=== PATIENT | male | born 1945 | race Caucasian/White ===

== ENCOUNTER 2020-02-15 11:45 | Inpatient (IN) | payer MEDICARE, OTHER, SELFPAY ==
[2020-02-15] VITALS (10 sets, daily range): BP systolic 109–140; BP diastolic 52–97; PULSE 77–150; RESP 20–30; TEMP 36.7–39.6; O2SAT 91–99; BMI 34.0
--- NOTE | ~2020-02-15 | XR_ITS ---
EXAMINATION: XR chest 1V portable EXAM DATE: 02/15/2020 12:49 INDICATION: COVID-19. TECHNIQUE: Portable AP frontal chest x-ray was obtained. There is no prior study for comparison. FINDINGS: Small regions of patchy ill-defined acute airspace disease, appearance and distribution con sistent with acute lung injury from SARS-CoV-2. No confluent consolidation, pneumothorax or pleural e ffusion suspected. Cardiomediastinal silhouette is normal. There are no osseous abnormalities identif ied. IMPRESSION: Ill-defined opacities bilaterally consistent with COVID-19. Reviewed, dictated and finalized at location A. ENSATION ANALYST
--- NOTE | 2020-02-15 12:11 | ECG_ITS ---
Measurements Intervals [place] Rate: 128 P: [place]: 0 QRS: 9 QRSD: 81 T: 19 QT: 276 QTc: 403 Interpretive Statements ATRIAL FIBRILLATION WITH RAPID VENTRICULAR RESPONSE BORDERLINE T WAVE ABNORMALITY- INFERIOR LEADS BASELINE ARTIFACT- I, III, AVR, AVL, AVF, V1, V4-V6 ABNORMAL ECG Electronically Signed On 02-15-2020 17:09:19 MULTI OPERATION FORMING MACHINE SETTER by Amaury Osman D.O.
[2020-02-15 12:43] LABS: Alveolar/Arterial O2 Gradient 83.4 mmHg; Base Excess ABG 0.9 mEq/l (+/-2.0); Fractional Inspired Oxygen 28 %; HCO3 ABG 22.1 mEq/l (22.0-26.0); Oxygen Content ABG 23.7 %vol (16.0-22.0); Oxygen Saturation ABG 97.3 % (95.0-100.0); Oxyhemoglobin 96.3 % THb (90.0-100.0); PCO2 ABG 27.7 mmHg (35.0-45.0); PO2 ABG 83.6 mmHg (80.0-100.0); PO2 FiO2 Ratio Arterial Blood 2.99 %; Total Hemoglobin 17.5 g/dL (12.0-18.0)
[2020-02-15 12:45] LABS: Device NASAL CANNULA; Site Drawn LEFT BRACHIAL
[2020-02-15] MEDS: SODIUM CHLORIDE 0.9% IV 1,000 ML 999 ML IV CONT (12:45)
[2020-02-15 13:00] LABS: Basophils Percent Auto 0.3 % (0.2-1.2); Hematocrit 47.8 % (42.0-52.0); Immature Granulocyte Absolute 0.04 K/mm3 (0.00-0.031); Immature Granulocyte Percent A 0.4 % (0-0.5); Lymphocytes Absolute Auto 0.48 K/mm3 (0.9-3.2); Lymphocytes Percent Auto 4.9 % (18.3-44.2); Mean Corpuscular HGB Conc 35.6 g/dl (32-36); Mean Corpuscular Hemoglobin 33.6 pg (26-34); Mean Corpuscular Volume 94.5 fl (80-100); Mean Platelet Volume 10.8 fl (7.4-10.4); Monocytes Absolute Auto 0.7 K/mm3 (0.1-0.6); Monocytes Percent Auto 7.5 % (2.6-8.5); Neutrophils Absolute Auto 8.5 K/mm3 (1.3-6.7); Neutrophils Percent Auto 86.9 % (45.5-73.1); Platelet Count Result 223 k/mm3 (150-375); Red Blood Count 5.06 M/mm3 (4.6-6.20); Red Cell Distribution Width 11.8 % (11.5-14.5); White Blood Count 9.8 K/mm3 (4.5-10.0)
--- NOTE | 2020-02-15 13:05 | ED.WEAKNESS ---
HPI - Weakness General Chief complaint: Weakness Stated complaint: SOB Time Seen by Provider: 02/15/20 12:09 Source: patient Mode of arrival: ambulatory Limitations: no limitations History of Present Illness HPI Narrative: 74 years old white female presents to the ED with general weakness for the last few days. Patient have a positive Covid test. 5 days ago. Patient does not take oxygen at home. Currently patient complaining of dyspnea mainly on exertion, general body aches and fever. Related Data Home Medications Medication Instructions Recorded Confirmed atorvastatin 10 mg PO DAILY 02/15/20 lisinopril-hydrochlorothiazide 1 tablet PO DAILY 02/15/20 Allergies Allergy/AdvReac Type Severity Reaction Status Date / Time No Known Allergies Allergy Verified 02/15/20 12:01 Review of Systems Review of Systems: Narrative: CONSTITUTIONAL: Denies fever, chills, or sweats. EYES: Denies visual changes, redness, or discharge. ENT: Denies rhinorrhea, congestion, sore throat, or otalgia. CARDIOVASCULAR: Denies chest pain, palpitations, or edema. RESPIRATORY: Dyspnea and shortness of breath. GASTROINTESTINAL: Denies abdominal pain, nausea, vomiting, or diarrhea. GENITOURINARY: Denies dysuria or hematuria. SKIN: Denies rash or itching. MUSCULOSKELETAL: Denies back pain, joint pain, or myalgia. NEUROLOGIC: Denies headache, numbness, or weakness. PSYCHIATRIC: Denies anxiety or depression. [facility] Past Medical History Medical History (Updated 02/15/20 @ 16:12 by Tonia Cohen MD) History of colon cancer Prostate cancer Family History Family History Sibling Family history of malignant neoplasm Father Family history of coronary artery disease Mother Family history of coronary artery disease Social History Social History Smoking status: Never smoker Alcohol intake: never Substance use: never Exam Narrative: Exam Narrative: General appearance: Well-developed, well-nourished, looks ill Skin: Normal color Head: Normocephalic, nontraumatic Eyes: Clear conjunctiva ENT: Oropharynx normal, ears normal, nose normal Neck: Supple, nontender Chest and respiratory: Airway patent, no respiratory distress, no accessory muscle use Heart: Tachycardia, irregular irregularity Abdomen: Soft, nontender, no organomegaly, quiet bowel sounds Neurologic: Alert and oriented ?3, ORTHOPEDIC TECHNICIAN is normal as tested, no gross motor deficit Course Course Emergency Course: Stable Vital Signs Vital signs: Vital Signs Temperature 39.6 C H 02/15/20 11:57 Pulse Rate 116 H 02/15/20 11:57 Respiratory Rate 02/15/20 11:57 Blood Pressure 140/89 02/15/20 11:57 Pulse Oximetry 93 02/15/20 11:57 Temperature 39.6 C H 02/15/20 11:57 Pulse Rate 116 H 02/15/20 11:57 Respiratory Rate 02/15/20 11:57 Blood Pressure 140/89 02/15/20 11:57 Pulse Oximetry 93 02/15/20 11:57 MDM - Weakness MDM Narrative Medical decision making narrative: Patient presents with Covid infection symptoms. EKG showed A. fib with RVR, which is new. Hypoxia on room air. Chest x-ray showing opacity bilaterally consistent with Covid infection D-dimer is elevated which high likely secondary to COVID-19 infection. CTA pulmonary ordered to rule out the possibility of PE. Lovenox 1 mg/kg subcu given Differential Diagnosis Differential diagnosis: Likely dehydration and other (Covid pneumonia, electrolyte imbalance, pulmonary embolism, A. fib with RVR) Lab Data Result diagrams: 02/15/20 12:38 Labs: Lab Results 02/15/20 02/15/20 Range/Units 12:38
[2020-02-15 13:10] LABS: Partial Thromboplastin Time 28.5 SECONDS (22.3-36.8)
[2020-02-15 13:12] LABS: D Dimer 1.44 ug/mL (<0.48)
[2020-02-15] MEDS: dilTIAZem HCl INJ 25 MG/5 ML VIAL 10 MG IV PUSH (14:14)
[2020-02-15 15:07] LABS: Estimated CRCL calculation 68 ml/min; Estimated Glomerular Filt Rate > 60
[2020-02-15] MEDS: ENOXAPARIN 100 MG/ML SYRINGE SUB-Q (17:43)
--- NOTE | 2020-02-15 18:11 | PM.IMHP ---
H&P: HPI History of Present Illness Date/Time: 02/15/20 18:11 Chief complaint: A Fib W/RVR/COVID/Pneumonia Narrative: Shawn Barreto is a 74 year old male Who has a history of hypertension and hyperlipidemia. 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 The patient stated that he was tested and found to be COVID positive this past Thursday. He was doing well until the middle night where he became short of breath. The patient stated that he felt like he was going to pass out last night. He had generalized body aches fever and dyspnea upon exertion. The patient was found to be in AFib with RVR. The patient has no prior history of atrial fibrillation. Patient was started on a Cardizem drip and given subcu Lovenox. The patient was placed on oxygen at 2 L per nasal cannula he is only 94% with oxygen on at 2 L. He was given subcu Lovenox IV Cardizem IV fluids and IV Tylenol in the emergency room. I personally reviewed his chest x-ray did looks like COVID pneumonia. Chest x-ray was read as ill-defined opacities bilaterally consistent with COVID-19. His heart rates in the 130s. Temperature 39.6 Degree C. patient is being admitted to inpatient for hypoxia new onset of AFib with RVR and COVID pneumonia. He is admitted and patient on the date of service of 02/15/2020 Review of Systems Review of Systems: All systems reviewed & are unremarkable except as noted in HPI and below Constitutional: Constitutional: Reports as per HPI and Reports no additional constitutional complaints Eyes: Eyes: Reports as per HPI and Reports no additional eye complaints ENT: Reports system reviewed and no additional complaints, except as documented and Reports Normal hearing present Cardiovascular: Cardiovascular: Reports no additional cardiovascular complaints Respiratory: Respiratory: Reports no additional respiratory complaints and Reports no additional respiratory complaints Gastrointestinal: Gastrointestinal: Reports as per HPI and Reports no additional gastrointestinal complaints Musculoskeletal: Musculoskeletal: Reports no additional musculoskeletal complaints Integumentary/Breasts: Skin/Breast: Reports system reviewed and no additional complaints, except as docu and Reports as per HPI Neurologic: Reports system reviewed and no additional complaints, except as documented, Reports as per HPI and Reports Normal hearing present Psychiatric: Psychiatric: Reports no additional psychiatric complaints and Reports as per HPI Endocrine: Endocrine: Reports no additional endocrine complaints Hematologic/Lymphatic: Hematologic/Lymphatic: Reports no additional hematologic/lymphatic complaints Allergic/Immunologic: Allergic/Immunologic: Reports no additional allergic/immunologic complaints [facility] Past Medical History Medical History (Updated 02/15/20 @ 18:34 by Leigh Bojorquez NP) History of colon cancer Hyperlipidemia Hypertension Prostate cancer Surgical History Surgical History (Updated 02/15/20 @ 18:17 by Leigh Bojorquez NP) H/O colectomy H/O local excision of skin lesion Family History Family History Sibling Family history of malignant neoplasm Father Family history of coronary artery disease Mother Family history of coronary artery disease Social History Social History (Updated 02/15/20 @ 18:20 by Leigh Bojorquez NP) Social History: the patient is and lives with his . his son is the durable power privacy attorney for healthcare. Patient is a full code. He has 3 sons and 2 step children. Patient denies any alcohol use no marijuana or illicit drugs. He owns an auto body shop. Smoking status: Never smoker Alcohol intake: never Substance use: never Living arrangements: with family Occupation/Education: occupation Meds Home Medications and Allergies Home Medications M
--- NOTE | 2020-02-15 18:39 | ADMGEN ---
This patient, Shawn Barreto, was admitted to IMU Room 213-01 AT 1834 ON 02/15/2020. Patient/family oriented to hospital policies and general routines including ID bracelet, bed and alarms, visiting hours, pain management, procedures, bathroom and other care routines, personal items, smoking policy, room service/diet, and visiting hours. Information on how to activate the Rapid Response Team has been discussed. Patient/Family are encouraged to report perceived risks to care and to ask questions if they do not understand what they are told or what they should do.
[2020-02-15] MEDS: DEXAMETHASONE SOD PHOS INJ 4 MG/ML VIAL 6 MG IV PUSH (19:05)
[2020-02-15 19:06] LABS: Alanine Aminotransferase 25 U/L (4-50); Estimated CRCL calculation 76 ml/min; Estimated Glomerular Filt Rate > 60
[2020-02-15] MEDS: REMDESIVIR 200 MG/NS 250 ML 200 MG/250 ML BAG 250 MG IVPB (22:11)
[2020-02-16] VITALS (11 sets, daily range): BP systolic 118–151; BP diastolic 61–83; PULSE 74–118; RESP 18–20; TEMP 36.5–38.8; O2SAT 91–99
--- NOTE | 2020-02-16 | ECHO_ITS ---
Patient Info Name: Shawn Barreto Age: 74 years : 1945 Gender: Male Ht: 66 in Wt: 209 lbs BSA: 2.14 m2 HR: 102 bpm BP: 118 / 61 mmHg Heart Rhythm: Tachycardia, Sinus Rhythm Technical Quality: Good Exam Date: 02/16/2020 10:07 AM Exam Location: [facility] Patient Status: Inpatient Admit Date: 02/15/2020 Staff Ordering Physician: Leigh Bojorquez NP Manager Of It: Ismael Colón, SUSHILA, RT Attending Provider: Jesus Richards DO Referring Physician: Reno SHEPPARD; Exam Type: CA echo doppler color flow Study Info Indications I48.1 - Persistent atrial fibrillation Complete two-dimensional, color flow and Doppler transthoracic echocardiogram is performed. Summary 1. Technically difficult study with limited views. 2. Left ventricular systolic function is normal, estimated at 55%. 3. There is mildly increased left ventricular wall thickness. 4. The left ventricular diastolic function is grade I diastolic dysfunction. 5. There is trace mitral valve regurgitation. 6. There is no aortic valve stenosis. 7. Unable to estimate PA systolic pressure due to poor spectral resolution of tricuspid regurgitant jet velocity. 8. There is small pericardial effusion with fibrinous material within the pericardial space. 9. Normal inferior vena cava with >50% collapse upon inspiration consistent with normal right atrial pressure, 5 mmHg. Left Ventricle Left ventricular chamber dimension is normal. Left ventricular systolic function is normal, estimated at 55%. There is mildly increased left ventricular wall thickness. The left ventricular diastolic function is grade I diastolic dysfunction. Technically difficult study with limited views. Right Ventricle Right ventricular chamber dimension is normal. Right ventricular systolic function is normal. Left Atria Left atrial chamber dimension is normal. Right Atria Right atrial chamber dimension is normal. Aortic Valve The aortic valve is probable trileaflet. There is no aortic valve stenosis. There is no aortic valve regurgitation. Pulmonic Valve The pulmonic valve is not well visualized. Mitral Valve The mitral valve has normal leaflets. There is trace mitral valve regurgitation. The mitral valve annulus is mildly calcified. Tricuspid Valve The tricuspid valve leaflets are not well visualized. Unable to estimate PA systolic pressure due to poor spectral resolution of tricuspid regurgitant jet velocity. Pericardium/Pleural The pericardium appears normal. There is small pericardial effusion with fibrinous material within the pericardial space. Inferior Vena Cava Normal inferior vena cava with >50% collapse upon inspiration consistent with normal right atrial pressure, 5 mmHg. Aorta The aortic root size at the sinus of Valsalva is normal. Left Ventricular Outflow Tract Name Value Normal LVOT 2D LVOT Diameter 2.1 cm LVOT Doppler LVOT Peak Gradient 5 mmHg LVOT Mean Gradient 2 mmHg LVOT VTI 15 cm LVOT VTI/AV VTI Ratio
--- NOTE | 2020-02-16 03:11 | ECG_ITS ---
Measurements Intervals [place] Rate: 93 P: 113 DC: 103 QRS: -5 QRSD: 90 T: 19 QT: 319 QTc: 397 Interpretive Statements SINUS RHYTHM WITH SHORT DC INTERVAL ATRIAL PREMATURE COMPLEX DELAYED PRECORDIAL R/S TRANSITION BASELINE ARTIFACT- I, II, III, AVR, AVL, AVF, V1-V3 BORDERLINE ECG Electronically Signed On 02-17-2020 8:56:18 REGULATORY COMPLIANCE SPECIALIST by Amaury Osman D.O.
[2020-02-16] MEDS: ENOXAPARIN 100 MG/ML SYRINGE 95 MG SUB-Q ×2 (05:03→17:20)
[2020-02-16 05:35] LABS: Basophils Percent Auto 0.1 % (0.2-1.2); Hematocrit 43.9 % (42.0-52.0); Hemoglobin 15.2 g/dL (14.0-18.0); Immature Granulocyte Absolute 0.02 K/mm3 (0.00-0.031); Immature Granulocyte Percent A 0.3 % (0-0.5); Lymphocytes Absolute Auto 0.48 K/mm3 (0.9-3.2); Lymphocytes Percent Auto 6.4 % (18.3-44.2); Mean Corpuscular HGB Conc 34.6 g/dl (32-36); Mean Corpuscular Volume 95.2 fl (80-100); Monocytes Absolute Auto 0.4 K/mm3 (0.1-0.6); Monocytes Percent Auto 5.3 % (2.6-8.5); Neutrophils Absolute Auto 6.6 K/mm3 (1.3-6.7); Neutrophils Percent Auto 87.9 % (45.5-73.1); Platelet Count Result 210 k/mm3 (150-375); Red Blood Count 4.61 M/mm3 (4.6-6.20); Red Cell Distribution Width 11.8 % (11.5-14.5); White Blood Count 7.5 K/mm3 (4.5-10.0)
[2020-02-16 05:50] LABS: Alanine Aminotransferase 27 U/L (4-50); Albumin Level 3.4 g/dL (3.5-5.1); Alkaline Phosphatase 45 U/L (38-126); Anion Gap 7 mmol/L (8-16); Aspartate Amino Transferase 32 U/L (17-59); Bilirubin,Total 0.9 mg/dL (0.2-1.3); Blood Urea Nitrogen 24 mg/dL (9-20); Calcium 8.5 mg/dL (8.4-10.2); Carbon Dioxide 31 mmol/L (22-30); Chloride 96 mmol/L (98-107); Estimated CRCL calculation 76 ml/min; Estimated Glomerular Filt Rate > 60; Glucose 167 mg/dL (75-110); Magnesium 2.3 mg/dL (1.6-2.3); Potassium 3.7 mmol/L (3.4-5.0); Sodium 134 mmol/L (137-145)
[2020-02-16 06:03] LABS: CRP 14.3 mg/dL (<1.0)
[2020-02-16 06:44] LABS: Thyroid Stimulating Hormone Reflex 0.426 uIU/mL (0.465-4.68)
[2020-02-16 09:03] LABS: Free T4 Free Thyroxine Reflex 1.53 ng/dL (0.78-2.19)
--- NOTE | 2020-02-16 09:17 | PM.IMPN ---
Progress Note: A&P Assessment and Plan (1) Hyperlipidemia: Qualifiers: Hyperlipidemia type: mixed hyperlipidemia Qualified Code(s): E78.2 - Mixed hyperlipidemia Code(s): E78.5 - Hyperlipidemia, unspecified Status: Chronic Assessment and Plan: restart home atorvastatin (2) Hypertension: Qualifiers: Hypertension type: essential hypertension Qualified Code(s): I10 - Essential (primary) hypertension Code(s): I10 - Essential (primary) hypertension Status: Chronic Assessment and Plan: restarting home meds lisinopril-HCTZ (3) Pneumonia due to 2019 novel coronavirus: Code(s): U07.1 - COVID-19; J12.89 - Other viral pneumonia Status: Acute Assessment and Plan: -COVID 19 diagnosed 02/11 -supplemental O2 to keep O2>90%, currently on 3L -Remdesivir/dexamethasone 02/14- -MDI: levalbuterol prn -supplements: zinc, vitamin c, vitamin d -incentive spirometry -tylenol for fever > 100.4F -GI prophylaxis for steroids stress: protonix 40mg daily -will check AM labs, and inflammatory markers (4) Atrial fibrillation with rapid ventricular response: Code(s): I48.91 - Unspecified atrial fibrillation Status: Acute Assessment and Plan: -Was started on cardizem drip, converted overnight to normal sinus rhythm. -Will continue to watch on telemetry, repeat EKG -Likely etiology is secondary to hypoxia from COVID 19. Will treat underlying illness -Chads-vasc 2. will continue lovenox for COVID 1mg/kg. Echocardiogram for today. Cardiology consulted. Additional Plan Diet: Heart healthy DVTppx: Lovenox 1mg/kg BID GI ppx: protonix Code status: Full Code Disposition: IMU, will continue to watch and repeat EKG Subjective Date/time seen: 02/16/20 09:17 Patient examined bedside. COVID 19 positive 02/11-, hospitalized 02/14-, 3L O2, Remdesivir/dexamethasone 02/14-. Overnight he was started on cardizem drip for afib with RVR, patient has no history of afib. He then converted to sinus rhythm overnight and cardizem drip was stopped. Patient complains of rigors, fevers, chills, sweats, loss of sense of taste, dyspnea better with O2. He denies nausea, vomiting, chest pain, diarrhea, constipation. Review of Systems Review of Systems: All systems reviewed & are unremarkable except as noted in HPI and below Exam Narrative: Exam Narrative: - GENERAL: pleasant elder gentleman in no acute distress. He does have tremors - EYES: EOMI. Anicteric. - HENT: Moist mucous membranes. No scleral icterus. - LUNGS: Clear to auscultation bilaterally, no wheezing, rhonchi, or rales. - CARDIOVASCULAR: tachycardic and rhythm. No murmur. No JVD. - ABDOMEN: Soft, non-tender and non-distended. No palpable masses. - EXTREMITIES: No edema. Peripheral pulses 2+. Non-tender. - NEUROLOGIC: No focal neurological deficits. CN II-XII grossly intact. - PSYCHIATRIC: Awake, Alert and oriented x 3. Appropriate mood and affect. - SKIN: No rashes or lesions. Warm. - LYMPH: No cervical lymphadenopathy. Objective Data Vital Signs Vital Signs: Vital Signs - 24 hr 02/15/20 11:57 02/15/20 12:30 02/15/20 14:15 Temperature 39.6 C H Pulse Rate 116 H 150 H 132 H Respiratory Rate 20 30 H Blood Pressure 140/89 134/88 Pulse Oximetry 93 91 02/15/20 17:00 02/15/20 17:30 02/15/20 18:05 Temperature 37.5 C Pulse Rate 114 H 120 H 137 H Respiratory Rate 20 20 20 Blood Pressure 109/78 109/97 H 130/81 Pulse Oximetry 97 94 02/15/20 18:38 02/15/20 20:00 02/15/20 22:00 Temperature 38.1 C H 36.7 C Pulse Rate 134 H 93 87 Respiratory Rate 20 22 H Blood Pressure 113/93 H 130/88 Pulse Oximetry 96 99 02/15/20 23:49 02/16/20 00:00 02/16/20 02:00 Temperature 36.7 C Pulse Rate 77 80 74 Respiratory Rate 20 Blood Pressure 122/52 L Pulse Oximetry 97 99 02/16/20 04:00 02/16/20 06:00 02/16/20 07:29 Temperature 36.5 C 36.7 C Pulse Rate 75 82 85 Respiratory Rate 20 20 Blood Pressure 1
[2020-02-16 10:52] LABS: Total Triiodothyronine (T3) 0.53 NG/ML (0.97-1.69)
[2020-02-16] MEDS: ASCORBIC ACID 500 MG TABLET PO (11:13)
[2020-02-16] MEDS: CHOLECALCIFEROL 1,000 UNITS TABLET 1000 UNITS PO (11:13)
[2020-02-16] MEDS: ZINC SULFATE 220 MG CAPSULE PO (11:13)
[2020-02-16] MEDS: PANTOPRAZOLE 40 MG TABLET PO (11:13)
[2020-02-16] MEDS: DEXAMETHASONE SOD PHOS INJ 4 MG/ML VIAL 6 MG IV PUSH (17:20)
--- NOTE | 2020-02-16 18:30 | PC.NURSE ---
Patient transferred to [facility], report given to Adalberto RANGEL, all belongings sent with patient
--- NOTE | 2020-02-16 18:37 | PC.NURSE ---
Pt arrived via bed from IMU. Pt is on room air. no sob, no pain expressed or observed. Oriented to unit.
[2020-02-16] MEDS: REMDESIVIR 100 MG/NS 250 ML 100 MG/250 ML BAG 250 MG IVPB (21:43)
[2020-02-17] VITALS (9 sets, daily range): BP systolic 120–150; BP diastolic 66–78; PULSE 74–99; RESP 18–20; TEMP 36.3–36.9; O2SAT 90–94
[2020-02-17] MEDS: ENOXAPARIN 100 MG/ML SYRINGE 95 MG SUB-Q (06:03)
[2020-02-17 06:36] LABS: Hematocrit 44.3 % (42.0-52.0); Mean Corpuscular HGB Conc 33.9 g/dl (32-36); Mean Corpuscular Hemoglobin 32.8 pg (26-34); Mean Corpuscular Volume 96.9 fl (80-100); Mean Platelet Volume 10.9 fl (7.4-10.4); Platelet Count Result 223 k/mm3 (150-375); Red Blood Count 4.57 M/mm3 (4.6-6.20); Red Cell Distribution Width 11.9 % (11.5-14.5); White Blood Count 6.7 K/mm3 (4.5-10.0)
[2020-02-17 07:14] LABS: Alanine Aminotransferase 27 U/L (4-50); Anion Gap 5 mmol/L (8-16); Blood Urea Nitrogen 25 mg/dL (9-20); CRP 8.3 mg/dL (<1.0); Calcium 8.5 mg/dL (8.4-10.2); Carbon Dioxide 32 mmol/L (22-30); Chloride 98 mmol/L (98-107); Estimated CRCL calculation 75 ml/min; Estimated Glomerular Filt Rate > 60; Glucose 162 mg/dL (75-110); Lactate Dehydrogenase 521 U/L (313-618); Magnesium 2.5 mg/dL (1.6-2.3); Potassium 4.4 mmol/L (3.4-5.0); Sodium 135 mmol/L (137-145)
[2020-02-17] MEDS: CHOLECALCIFEROL 1,000 UNITS TABLET 1000 UNITS PO (08:33)
[2020-02-17] MEDS: ATORVASTATIN 10 MG TABLET PO (08:33)
[2020-02-17] MEDS: hydroCHLOROthiazide 12.5 MG CAPSULE PO (08:34)
[2020-02-17] MEDS: PANTOPRAZOLE 40 MG TABLET PO (08:34)
[2020-02-17] MEDS: ASCORBIC ACID 500 MG TABLET PO (08:34)
[2020-02-17] MEDS: ZINC SULFATE 220 MG CAPSULE PO (08:35)
[2020-02-17] MEDS: lisinopriL 10 MG TABLET PO (08:35)
--- NOTE | 2020-02-17 13:36 | PCRCNOTE ---
HOME O2 EVAL COMPLETE, NO REQUIREMENTS
--- NOTE | 2020-02-17 18:28 | PM.DS ---
DS: Admitting Diagnosis Admitting Diagnosis Admitting Diagnosis: A Fib W/RVR/COVID/Pneumonia DS: Discharge Diagnosis Discharge Diagnosis (1) Hyperlipidemia: Qualifiers: Hyperlipidemia type: mixed hyperlipidemia Qualified Code(s): E78.2 - Mixed hyperlipidemia Code(s): E78.5 - Hyperlipidemia, unspecified Status: Chronic Assessment and Plan: restart home atorvastatin (2) Hypertension: Qualifiers: Hypertension type: essential hypertension Qualified Code(s): I10 - Essential (primary) hypertension Code(s): I10 - Essential (primary) hypertension Status: Chronic Assessment and Plan: restarting home meds lisinopril-HCTZ (3) Pneumonia due to 2019 novel coronavirus: Code(s): U07.1 - COVID-19; J12.89 - Other viral pneumonia Status: Acute Assessment and Plan: -COVID 19 diagnosed 02/11 -supplemental O2 to keep O2>90%, currently on 3L -Remdesivir/dexamethasone 02/14-02/16, patient received 2 days of remdesivir, will send home with Rx dexamethasone -MDI: levalbuterol prn -supplements: zinc, vitamin c, vitamin d -incentive spirometry -tylenol for fever > 100.4F -GI prophylaxis for steroids stress: protonix 40mg daily, advised can take over the counter pepcid if he has dyspepsia (4) Atrial fibrillation with rapid ventricular response: Code(s): I48.91 - Unspecified atrial fibrillation Status: Acute Assessment and Plan: -Was started on cardizem drip, converted overnight to normal sinus rhythm. -Will continue to watch on telemetry, repeat EKG showed normal sinus rhythm -Likely etiology is secondary to hypoxia from COVID 19. Will treat underlying illness -Chads-vasc 2. - echocardiogram LVEF 55%, grade 1 diastolic dysfunction - patient will discuss anticoagulation and future management with PCP, once his hypoxia was treated he came back to normal sinus rhythm, likely will not have afib if he is well oxygenated DS: Summary Hospital Course Reason for hospitalization: dyspnea Hospital Course: Patient is 74-year-old male past medical history hyperlipidemia, hypertension presents to the ED with dyspnea. Patient and his were diagnosed for COVID-19 02/12/2020. He was given remdesivir and dexamethasone and treated inpatient 02/14-02/16. he was started on supplements zinc, vitamin-C, vitamin- D. was given supplemental oxygen and weaned off rather quickly in 2 days. Patient was advised to take Pepcid biac-yvi-iernndy as needed since he is on dexamethasone. when he 1st arrived he was in AFib with RVR and was put on Cardizem drip. He quickly converted to normal sinus rhythm after getting oxygen and initial treatment for COVID-19. I believe his AFib was triggered by the hypoxia from COVID-19. we did not start any anticoagulation. Chads Vasc score 2. we are holding off any AFib treatment as it was likely temporary. Patient to follow-up with primary care provider to discuss future management. Patient feels much better on 02/16, breathing comfortably on room air able to ambulate with rolling walker. Patient like to go home. We discussed that he needs to come back to hospital if he develops progressive dyspnea. he has received 2 doses of remdesivir and dexamethasone. Rx given for dexamethasone for 1 more week. Also advised it is optional to take zinc, vitamin-C, vitamin-D, and he was interested, will give 30 day Rx. patient follow-up with primary care provider after quarantine. Patient understands and agrees with plan. Patient's vital stable, labs stable, patient stable for discharge. Status at Discharge Functional status at discharge: uses cane/walker Overall status at discharge: patient is progressing back to baseline Time Spent with Patient Time attestation: Total time spent providing and/or coordinating discharge services: 35 Time spent: Greater than 30 minutes Exam Narrative: Exam Narrative: - GENERAL: pleasant elder gentleman in no acute distress.
[2020-02-17] MEDS: DEXAMETHASONE SOD PHOS INJ 4 MG/ML VIAL 6 MG IV PUSH (19:10)
== END 2020-02-17 19:30 | disposition home or self-care (01) | DRG 177 ==
LOC: ANHED 16:12 → ANHIMU 16:32 → ANH3MEDSUR 02-16 18:22
PROVIDERS: Nurse Practitioner; Admitting Provider Student in an Organized Health Care Education/Training Program; Emergency Provider Emergency Medicine; PCP Internal Medicine; Visit Provider Student in an Organized Health Care Education/Training Program
DX: U07.1 COVID-19 (principal); J12.89 Other viral pneumonia; E78.5 Hyperlipidemia, unspecified; I10 Essential (primary) hypertension; I48.91 Unspecified atrial fibrillation; Z85.038 Personal history of other malignant neoplasm of large intestine; Z85.46 Personal history of malignant neoplasm of prostate
CPT/HCPCS: 36415; 36600; 71045; 80048; 80053; 82565; 82728; 82805; 83605; 83615; 83735; 84439; 84443; 84460; 84480; 85025; 85027; 85380; 85610; 85730; 86140; 93005; 93306; 94618; 96361; 96374; 96375; 99285; A9270; J0131; J1100; J1650; J7030

== ENCOUNTER 2021-08-07 07:20 | Outpatient (CLI) | payer MEDICARE, OTHER, SELFPAY ==
--- NOTE | ~2021-08-07 | NM_ITS ---
EXAMINATION: NM bone scan whole body DATE: 08/07/2021 10:51 INDICATION: Prostate cancer. TECHNIQUE: 25.3 mCi Tc-99m HDP was administered intravenously. Delayed whole-body scintigrams were o btained. COMPARISON: Chest single view 02/15/2020 FINDINGS: There is joint-centered increased activity at the acromioclavicular joints and sternoclavic ular joints, likely osteoarthritis. There is increased activity at the hip joints. IMPRESSION: 1. Increased activity at the hip joints, most likely osteoarthritis. Correlate with a radiograph of t he pelvis to exclude malignancy. Reviewed, dictated and finalized at location B. IMPRESSION: 1. Increased activity at the hip joints, most likely osteoarthritis. Correlate with a radiograph of the pelvis to exclude malignancy.
== END 2021-08-07 07:21 | disposition home or self-care (01) ==
PROVIDERS: PCP Internal Medicine; Visit Provider Urology
DX: C61 Malignant neoplasm of prostate (principal); M89.9 Disorder of bone, unspecified
CPT/HCPCS: 78306; A9561

== ENCOUNTER 2023-05-22 09:08 | Inpatient (IN) | payer MEDICARE, OTHER, SELFPAY ==
[2023-05-22] VITALS (33 sets, daily range): BP systolic 120–144; BP diastolic 59–93; PULSE 59–108; RESP 13–26; TEMP 36.5–36.7; O2SAT 94–100; BMI 32.8
--- NOTE | ~2023-05-22 | MR_ITS ---
EXAMINATION: MR brain/brain stem wo con DATE: 05/22/2023 16:29 INDICATION: vertigo TECHNIQUE: Magnetic resonance imaging (MRI) of the brain and brainstem was performed without intraven ous contrast. Sequences included sagittal and axial T1-weighted SE, axial diffusion-weighted FS EPI A SSET, axial T2*-weighted GRE, axial T2-weighted FLAIR Propeller, and axial T2-weighted Propeller. Chintan arent diffusion coefficient (ADC) maps were created. COMPARISON: CT brain 05/22/2023. FINDINGS: No abnormal restricted diffusion to suggest acute ischemic infarct. No MRI evidence of hemorrhage or extra-axial collection. No suspicious foci of susceptibility to suggest prior intraparenchymal hemorr taty. Moderate patchy white matter hyperintensity, likely representing moderate small vessel ischemic disease. Moderate generalized parenchymal volume loss. Symmetric bilateral basal ganglia calcificati on. The basilar cisterns are patent. Flow voids are preserved. Trace fluid level in a hypoplastic lef t sphenoid sinus. Mild ethmoid mucosal thickening. The remaining aerated spaces are clear. Globes and orbital contents are within normal limits. IMPRESSION: No acute intracranial process. Trace fluid in the left sphenoid sinus, could reflect acute sinusitis in the appropriate clinical con text. Reviewed, dictated and finalized at location K. RETE WALL GRINDER OPERATOR IMPRESSION: No acute intracranial process. Trace fluid in the left sphenoid sinus, could reflect acute sinusitis in the ap propriate clinical context.
--- NOTE | ~2023-05-22 | XR_ITS ---
EXAMINATION: XR chest 1V portable Exam Date/Time: 05/22/2023 15:55 MARKETING REGIONAL CONSULTANT HISTORY: congestion Comparison: 02/15/2020. RESULT: Lines, tubes, and devices: None. Lungs and pleura: Senescent change. Minimal streaky right basilar opacities, likely atelectasis or s car. Subsegmental left basilar airspace disease. Mild left costophrenic angle blunting. Cardiomediastinal silhouette: Stable. Other: No acute osseous or upper abdominal finding. IMPRESSION: Subsegmental left basilar atelectasis or pneumonia. Small left pleural effusion. Reviewed, dictated and finalized at location K. ETING REGIONAL CONSULTANT IMPRESSION: Subsegmental left basilar atelectasis or pneumonia. Small left pleural effusion .
--- NOTE | ~2023-05-22 | CT_ITS ---
EXAMINATION: CT brain wo con DATE: 05/22/2023 13:21 INDICATION: Dizziness. Possible stroke. TECHNIQUE: Computed tomography (CT) of the head was performed without intravenous contrast. Sagittal and coronal reconstructions were performed. The mA was adjusted according to patient size. Iterative reconstruction technique was employed. The dose-length product was 681.00 mGy-cm. COMPARISON: None FINDINGS: No acute intracranial hemorrhage, acute infarction or abnormal extra axial fluid collection. Small ol d lacunar infarct at the right caudate nucleus. There is moderate scattered white matter hypoattenuat ion consistent with chronic small vessel ischemic disease. Symmetric dystrophic calcification at the bilateral basal ganglia. Ventricles are normal and symmetric. No mass/mass effect. Mild mucosal thick ening versus small amount of fluid in the dependent left sphenoid sinus. The orbits and mastoid air c ells are normal. IMPRESSION: 1. No acute intracranial process. 2. 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 3. Age-related changes including mild to moderate and diffuse volume loss and moderate scattered whit e matter hypoattenuation consistent with chronic small vessel ischemic disease. Reviewed, dictated and finalized at location A. ENTER LABOR SUPERVISOR IMPRESSION: 1. No acute intracranial process. 2. 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 3. Age-related changes including mild to moderate and diffuse volume loss and m oderate scattered white matter hypoattenuation consistent with chronic small ve ssel ischemic disease.
--- NOTE | ~2023-05-22 | US_ITS ---
Procedure: Duplex Doppler examination of the bilateral carotids. Indication: Vertigo Technique: Real time, color-flow and pulse wave Doppler examination of the bilateral carotids was performed. Findings: Faith scale ultrasonography of the right neck demonstrated moderate plaques at the right carotid bifur cation. There was demonstration of normal color-flow and Doppler waveforms within the right common, i nternal and external carotid arteries. The peak systolic velocities in the right common, internal and external carotid arteries were demonstrated to be 82 cm/sec, 197 cm/sec and 130 cm/sec respectively. The right ICA/CCA ratio was 2.7.The proximal right internal carotid artery demonstrates 65% stenosis relative to the normal distal artery lumen diameter. Faith scale sonography of the left neck demonstrated small to moderate plaque at the left carotid bulb . There was demonstration of normal color-flow and wave forms within the left common, internal and ex ternal carotid arteries. The peak systolic velocities in the left common, internal and external carot id arteries were demonstrated to be 94cm/sec, 92 cm/sec and 91 cm/sec respectively. The left ICA/CCA ratio was 1.0. The proximal left internal carotid artery demonstrates 0% stenosis relative to the nor mal distal artery lumen diameter. There was antegrade flow demonstrated in the bilateral vertebral arteries. Impression: Moderate degree stenosis of the proximal right internal carotid artery, as detailed above. Antegrade flow in the bilateral vertebral arteries. Note: The methodology used is an indirect measurement validated against a direct method (such as the NASCET criteria) that compares diameters at the stenosis to the distal ICA. Reviewed, dictated and finalized at location . TZ MINER BLASTING Impression: Moderate degree stenosis of the proximal right internal carotid artery, as deta iled above. Antegrade flow in the bilateral vertebral arteries. Note: The methodology used is an indirect measurement validated against a direct meth od (such as the NASCET criteria) that compares diameters at the stenosis to the distal ICA.
--- NOTE | 2023-05-22 09:09 | ECG_ITS ---
Measurements Intervals [place] Rate: 102 P: [place]: 0 QRS: -9 QRSD: 80 T: 25 QT: 317 QTc: 414 Interpretive Statements ATRIAL FIBRILLATION WITH RAPID VENTRICULAR RESPONSE LOW QRS VOLTAGE IN PRECORDIAL LEADS [QRS DEFLECTION < 1.0 mV IN CHEST LEADS] ABNORMAL RHYTHM ECG COMPARED TO ECG 02/16/2020 13:24:59 ATRIAL FIBRILLATION REPLACES SINUS RHYTHM Electronically Signed On 05-22-2023 15:20:22 PROFILE GRINDER by Jame Grove M.D.
[2023-05-22 09:52] LABS: Basophils Percent Auto 0.2 % (0.2-1.2); Eosinophils Absolute Auto 0.2 K/mm3 (0-0.3); Eosinophils Percent Auto 2.3 % (0-4.4); Hematocrit 51.2 % (42.0-52.0); Hemoglobin 17.2 g/dL (14.0-18.0); Immature Granulocyte Absolute 0.04 K/mm3 (0.00-0.031); Immature Granulocyte Percent A 0.4 % (0-0.5); Lymphocytes Absolute Auto 0.62 K/mm3 (0.9-3.2); Lymphocytes Percent Auto 6.1 % (18.3-44.2); Mean Corpuscular HGB Conc 33.6 g/dl (32-36); Mean Corpuscular Hemoglobin 32.8 pg (26-34); Mean Corpuscular Volume 97.7 fl (80-100); Mean Platelet Volume 10.6 fl (7.4-10.4); Monocytes Absolute Auto 0.8 K/mm3 (0.1-0.6); Monocytes Percent Auto 8.1 % (2.6-8.5); Neutrophils Absolute Auto 8.5 K/mm3 (1.3-6.7); Neutrophils Percent Auto 82.9 % (45.5-73.1); Platelet Count Result 258 k/mm3 (150-375); Red Blood Count 5.24 M/mm3 (4.6-6.20); Red Cell Distribution Width 12.1 % (11.5-14.5); White Blood Count 10.2 K/mm3 (4.5-10.0)
--- NOTE | 2023-05-22 10:32 | ED.GENADULT ---
HPI - General Adult General Chief complaint: Dizziness Stated complaint: Dizzy Time Seen by Provider: 05/22/23 09:32 History of Present Illness HPI narrative: Patient is a 77-year-old male who presents ER with dizziness. Began today. Spinning in nature. Worse with any type of movement. Associated With nausea. Has history of vertigo in the past and this feels similar. No chest pain or chest pressure. Patient's EKG shows AFib which is new. Related Data Home Medications Medication Instructions Recorded Confirmed lisinopril 10 1 tablet PO QAM 10/01/21 05/22/23 mg-hydrochlorothiazide 12.5 mg tablet amoxicillin 875 mg-potassium 875 tablet PO BID 05/22/23 05/22/23 clavulanate 125 mg tablet Allergies Allergy/AdvReac Type Severity Reaction Status Date / Time Iodinated Contrast Media Allergy hives Verified 05/22/23 09:23 Review of Systems Review of Systems: All systems reviewed & are unremarkable except as noted in HPI and below Constitutional: Constitutional: Reports no additional constitutional complaints ENT: Reports vertigo, Denies nasal congestion and Denies sore throat Cardiovascular: Cardiovascular: Reports no additional cardiovascular complaints Respiratory: Respiratory: Reports no additional respiratory complaints Gastrointestinal: Gastrointestinal: Denies abdominal pain, Denies diarrhea, Reports nausea and Denies vomiting Genitourinary: Genitourinary: Reports no additional male genitourinary complaints [facility] Past Medical History Medical History (Updated 05/22/23 @ 19:24 by Ramon Meeks MD) Colon cancer (2014) Hyperlipidemia Hypertension Paroxysmal atrial fibrillation (02/2020) Prostate cancer Surgical History Surgical History (Updated 05/22/23 @ 15:46 by Nimisha Sloan PA-C) History of basal cell carcinoma excision History of colectomy Family History Family History Sibling Family history of malignant neoplasm Father Family history of coronary artery disease Mother Family history of coronary artery disease Social History Social History (Updated 05/22/23 @ 15:47 by Nimisha Sloan PA-C) Social History: Surrogate medical decision maker: Maria Guadalupe Barreto, spouse. Code status: Full code. Smoking status: Never smoker Alcohol intake: never Substance use: never Do You Feel Safe in your Home?: Yes Lack of Transportation: No Lack of Food: Never True Current Housing: I Have Housing Concerned About Future Housing: No Difficulty Paying Gas/Electric Bills: No Difficulty Paying for Meds: No Currently Unemployed: No Education: Decline to Answer Difficulty w/ Childcare or Family Care: No Living arrangements: with family Additional living arrangements comments: Lives with spouse in [place]. He has 3 sons and 2 step children. 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 Spiritual care concerns: No Exam Narrative: GENERAL: Well-appearing, well-nourished, and in no acute distress. HEAD: Normocephalic, atraumatic. EYES: PERRL and EOMI. ENT: Mucous membranes moist. Cerumen impaction right ear. NECK: Supple. CHEST: Clear to auscultation. No respiratory distress. HEART: Irregular regular rate and rhythm. Normal peripheral pulses. ABDOMEN: Soft, nontender, nondistended. EXTREMITIES: Normal range of motion. No edema. SKIN: Warm, dry, no rash. NEURO: Alert and oriented x3. PSYCH: Normal mood and affect. Course Course Emergency Course: patient is still dizzy despite meclizine and cerumen removal. Given new atrial fibrillation it is possible he could be having a posterior stroke causing his symptoms and so he will be admitted for observation. Cardiology was consulted and patient was started on metoprolol. Will obtain CT scan prior to anticoagulation. Vital Signs Vital signs: Vital Signs Temperatu
[2023-05-22] MEDS: MECLIZINE HCL 25 MG TABLET PO (10:43)
[2023-05-22] MEDS: SODIUM CHLORIDE 0.9% IV 1,000 ML 999 ML IV CONT (10:43)
[2023-05-22 11:06] LABS: Influenza A QL RT-PCR Negative (Negative); Influenza B QL RT-PCR Negative (Negative); SARS-CoV-2 RNA PCR Negative (Negative)
[2023-05-22] MEDS: METOPROLOL SUCCINATE EXT REL 25 MG TABCR PO (11:13)
[2023-05-22 11:22] LABS: Alanine Aminotransferase 29 U/L (6-50); Albumin Level 4.3 g/dL (3.5-5.1); Alkaline Phosphatase 47 U/L (38-126); Anion Gap 7 mmol/L (8-16); Aspartate Amino Transferase 26 U/L (17-59); Bilirubin,Total 1.7 mg/dL (0.2-1.3); Blood Urea Nitrogen 18 mg/dL (9-20); Calcium 8.9 mg/dL (8.4-10.2); Carbon Dioxide 28 mmol/L (22-30); Chloride 100 mmol/L (98-107); Estimated CRCL calculation 72 ml/min; Estimated Glomerular Filt Rate > 60; Glucose 145 mg/dL (65-110); Potassium 4.1 mmol/L (3.4-5.0); Sodium 135 mmol/L (137-145)
[2023-05-22 11:23] LABS: Prothrombin Time 13.2 Seconds (11.1-14.7)
[2023-05-22 11:24] LABS: Partial Thromboplastin Time 27.7 SECONDS (22.3-36.8)
[2023-05-22 11:29] LABS: NT Pro B Type Natriuretic Pept 511 pg/mL (19.9-100)
--- NOTE | 2023-05-22 11:48 | PC.NURSE ---
To restroom. Pt still c/o feeling dizzy when getting up.
--- NOTE | 2023-05-22 15:41 | PM.IMHP ---
H&P: HPI History of Present Illness Date/Time: 05/22/23 16:15 Chief Complaint: Dizziness. Narrative: This is a very pleasant 77-year-old male with hypertension, hyperlipidemia, grade 1 diastolic dysfunction, and an episode of atrial fibrillation when hospitalized in February 2020 with COVID pneumonia who presented to the emergency department via private vehicle from home for evaluation of dizziness. The patient provides the following history. For a little over week he has had sinus congestion and dizziness which he further qualifies as vertigo. He was prescribed Augmentin added urgent care but quit taking that after about 6 days as it caused him to have pretty significant upset stomach. His congestion improved but he continues to have vertigo. He describes feeling as though the room is spinning. It is worse with any movement including moving his head up and down. Symptoms are minimal if he is lying still with his eyes closed. With the vertigo he has associated nausea and dry heaves with a couple of episodes of emesis. He denies fever, chills, sweats, head injury, visual changes, focal weakness, paresthesias, facial droop, and difficulty speaking and swallowing. He also denies chest and pleuritic pain, sensations of racing heart, and palpitations. In the ED: He was afebrile on arrival to triage with stable blood pressures and an EKG showing atrial fibrillation with rapid ventricular response, pulse in the low 100s. CMP and CBC were consistent with what his normal labs were run. He tested negative for influenza and COVID. For the rapid atrial fibrillation, he received 25 mg metoprolol succinate and his heart rate has slowed down. Meclizine has helped his vertigo very little and he is being admitted in this setting for further monitoring and workup. Review of Systems Review of Systems: Twelve systems were reviewed and are negative except for as per HPI [facility] Past Medical History Medical History Colon cancer (2014) Hyperlipidemia Hypertension Paroxysmal atrial fibrillation (02/2020) Prostate cancer Surgical History Surgical History History of basal cell carcinoma excision History of colectomy Family History Family History Sibling Family history of malignant neoplasm Father Family history of coronary artery disease Mother Family history of coronary artery disease Social History Social History Social History: Surrogate medical decision maker: Maria Guadalupe Barreto, spouse. Code status: Full code. Smoking status: Never smoker Alcohol intake: never Substance use: never Do You Feel Safe in your Home?: Yes Lack of Transportation: No Lack of Food: Never True Current Housing: I Have Housing Concerned About Future Housing: No Difficulty Paying Gas/Electric Bills: No Difficulty Paying for Meds: No Currently Unemployed: No Education: Decline to Answer Difficulty w/ Childcare or Family Care: No Living arrangements: with family Additional living arrangements comments: Lives with spouse in [place]. He has 3 sons and 2 step children. 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 Spiritual care concerns: No Meds Home Medications and Allergies Home Medications Medication Instructions Recorded Confirmed Type lisinopril 10 1 tablet PO QAM 10/01/21 05/22/23 History mg-hydrochlorothiazide 12.5 mg tablet amoxicillin 875 mg-potassium 875 tablet PO BID 05/22/23 05/22/23 History clavulanate 125 mg tablet Allergies Allergy/AdvReac Type Severity Reaction Status Date / Time Iodinated Contrast Media Allergy hives Verified 05/22/23 09:23 Vital Signs Vital Signs - 24 hr 05/22/23 09:13 05/22/23 09:31
--- NOTE | 2023-05-22 16:48 | ADMGEN ---
This patient, Shawn Barreto, was admitted to Medical Room 247-. Patient/family oriented to hospital policies and general routines including ID bracelet, bed and alarms, visiting hours, pain management, procedures, bathroom and other care routines, personal items, smoking policy, room service/diet, and visiting hours. Information on how to activate the Rapid Response Team has been discussed. Patient/Family are encouraged to report perceived risks to care and to ask questions if they do not understand what they are told or what they should do.
[2023-05-23] VITALS (15 sets, daily range): BP systolic 90–129; BP diastolic 61–95; PULSE 75–110; RESP 14–18; TEMP 36.4–37; O2SAT 93–98
[2023-05-23] MEDS: diazePAM (*CRX) 2.5 MG TABLET PO (01:12)
[2023-05-23 05:42] LABS: Basophils Percent Auto 0.3 % (0.2-1.2); Eosinophils Absolute Auto 0.3 K/mm3 (0-0.3); Eosinophils Percent Auto 5.2 % (0-4.4); Hematocrit 47.4 % (42.0-52.0); Hemoglobin 16.1 g/dL (14.0-18.0); Immature Granulocyte Absolute 0.02 K/mm3 (0.00-0.031); Immature Granulocyte Percent A 0.3 % (0-0.5); Lymphocytes Absolute Auto 1.05 K/mm3 (0.9-3.2); Lymphocytes Percent Auto 15.9 % (18.3-44.2); Mean Corpuscular Hemoglobin 32.9 pg (26-34); Mean Corpuscular Volume 96.9 fl (80-100); Mean Platelet Volume 10.4 fl (7.4-10.4); Monocytes Percent Auto 14.4 % (2.6-8.5); Neutrophils Absolute Auto 4.2 K/mm3 (1.3-6.7); Neutrophils Percent Auto 63.9 % (45.5-73.1); Platelet Count Result 237 k/mm3 (150-375); Red Blood Count 4.89 M/mm3 (4.6-6.20); White Blood Count 6.6 K/mm3 (4.5-10.0)
[2023-05-23 05:52] LABS: Alanine Aminotransferase 24 U/L (6-50); Albumin Level 3.4 g/dL (3.5-5.1); Alkaline Phosphatase 41 U/L (38-126); Anion Gap 4 mmol/L (8-16); Aspartate Amino Transferase 23 U/L (17-59); Bilirubin,Total 1.2 mg/dL (0.2-1.3); Blood Urea Nitrogen 15 mg/dL (9-20); Calcium 8.7 mg/dL (8.4-10.2); Carbon Dioxide 26 mmol/L (22-30); Chloride 106 mmol/L (98-107); Estimated CRCL calculation 65 ml/min; Estimated Glomerular Filt Rate > 60; Glucose 135 mg/dL (65-110); Potassium 3.6 mmol/L (3.4-5.0); Sodium 136 mmol/L (137-145)
--- NOTE | 2023-05-23 06:00 | ECHO_ITS ---
Patient Info Name: Shawn Barreto Age: 77 years : 1945 Gender: Male Ht: 65 in Wt: 203 lbs BSA: 2.09 m2 HR: 87 bpm BP: 117 / 86 mmHg Heart Rhythm: Atrial Fibrillation Technical Quality: Fair Exam Date: 05/23/2023 11:08 AM Exam Location: Echo Lab Patient Status: Inpatient Admit Date: 05/22/2023 Staff Ordering Physician: Ramon Meeks MD Muleser: Debbie Colvin RDCS Attending Provider: Matty Haque MD Referring Physician: Constantino CASTILLO; Exam Type: CA echo dop color flow w con Study Info Indications - newq onsey a fib Complete two-dimensional, color flow and Doppler transthoracic echocardiogram is performed with contrast to opacify the left ventricle and to improve the deliniation of the left ventricle endocardial borders. Contrast/Agitated Saline Contrast/Ag. Saline: Definity Amount: 3.00 ml Summary 1. Definity contrast injected to improve visualization. 2. Normal left ventricular size with adequate systolic function, low normal ejection fraction. 3. Moderate biatrial dilation. 4. No significant valvular dysfunction. 5. Thickened pericardium without pericardial effusion. Left Ventricle Left ventricular chamber dimension is normal. Left ventricular systolic function is normal, estimated at 50-55%. The left ventricular diastolic function is indeterminate. Right Ventricle Right ventricular chamber dimension is normal. Left Atria Left atrial chamber dimension is moderately enlarged. Right Atria Right atrial chamber dimension is moderately enlarged. Aortic Valve The aortic valve is trileaflet. There is mild aortic valve sclerosis. Pulmonic Valve The pulmonic valve is not well visualized. Mitral Valve The mitral valve has normal leaflets. Tricuspid Valve The tricuspid valve leaflets are normal. Pericardium/Pleural The pericardium appears thickened pericardium. Aorta The aortic root size at the sinus of Valsalva is normal. Left Ventricular Outflow Tract Name Value Normal LVOT 2D LVOT Diameter 2.14 cm LVOT Doppler LVOT Peak Gradient 2 mmHg LVOT Mean Gradient 1 mmHg LVOT VTI 11.49 cm LVOT VTI/AV VTI Ratio 0.86 LVOT Stroke Volume 41.42 ml LVOT CO 4.23 l/min LVOT CI 2.02 L/min/m2 Pulmonic Valve Name Value Normal RVOT Doppler RVOT Peak Gradient 1 mmHg PV Doppler PV Peak Gradient 3 mmHg Mitral Valve Name Value Normal MV Doppler
[2023-05-23] MEDS: lisinopriL 10 MG TABLET PO (08:22)
[2023-05-23] MEDS: hydroCHLOROthiazide 12.5 MG CAPSULE PO (08:22)
[2023-05-23] MEDS: METOPROLOL SUCCINATE EXT REL 25 MG TABCR PO (08:22)
--- NOTE | 2023-05-23 09:18 | PM.IMPN ---
Progress Note: A&P Assessment and Plan (1) Vertigo: Code(s): R42 - Dizziness and giddiness Status: Acute (2) Atrial fibrillation with rapid ventricular response: Code(s): I48.91 - Unspecified atrial fibrillation Status: Acute (3) Hypertension: Qualifiers: Hypertension type: essential hypertension Qualified Code(s): I10 - Essential (primary) hypertension Code(s): I10 - Essential (primary) hypertension Status: Chronic (4) Hyperlipidemia: Qualifiers: Hyperlipidemia type: mixed hyperlipidemia Qualified Code(s): E78.2 - Mixed hyperlipidemia Code(s): E78.5 - Hyperlipidemia, unspecified Status: Chronic Time Spent With Patient Time: Dizziness -states history of vertigo likely due to patient's new onset AFib recent sinus infection -orthostatics negative -no relief with meclizine -CT head negative for acute issues does have old lacunar infarct -MRI with no acute issues New onset AFib -HR peaked at 107 -metoprolol started HR better controlled -cardiology consulted -Lovenox 1mg/KG will transition to p.o. Eliquis pending Cardiology recommendations -possible cardioversion?? HR rate is controlled at this time -CHADSVASC 6 -lipid panel pending -TSH pending -follow-up EKG pending -continuous cardiac monitoring Hypertension -stable -resume home medications -BB added HLD -HX noted -not on statin -Lipid panel pending Code status: Full code per patient DVT prophylaxis: Lovenox Stress ulcer prophylaxis: Protonix 40 daily PT/OT notes: PT/OT when stable Disposition: Patient continues admission to the telemetry unit for new onset AFIB, cardiology consulted lovenox for AC coverage then PO eliquis pending cardiology recommendations. HR controlled with BB will likely return home with when medically stable. Time with patient: 25 - 35 minutes Subjective Date/time seen: 05/23/23 09:18 Interval history: H&P (Medical Record) This is a very pleasant 77-year-old male with hypertension, hyperlipidemia, grade 1 diastolic dysfunction, and an episode of atrial fibrillation when hospitalized in February 2020 with COVID pneumonia who presented to the emergency department via private vehicle from home for evaluation of dizziness. The patient provides the following history. For a little over week he has had sinus congestion and dizziness which he further qualifies as vertigo. He was prescribed Augmentin added urgent care but quit taking that after about 6 days as it caused him to have pretty significant upset stomach. His congestion improved but he continues to have vertigo. He describes feeling as though the room is spinning. It is worse with any movement including moving his head up and down. Symptoms are minimal if he is lying still with his eyes closed. With the vertigo he has associated nausea and dry heaves with a couple of episodes of emesis. He denies fever, chills, sweats, head injury, visual changes, focal weakness, paresthesias, facial droop, and difficulty speaking and swallowing. He also denies chest and pleuritic pain, sensations of racing heart, and palpitations. In the ED: He was afebrile on arrival to triage with stable blood pressures and an EKG showing atrial fibrillation with rapid ventricular response, pulse in the low 100s. CMP and CBC were consistent with what his normal labs were run. He tested negative for influenza and COVID. For the rapid atrial fibrillation, he received 25 mg metoprolol succinate and his heart rate has slowed down. Meclizine has helped his vertigo very little and he is being admitted in this setting for further monitoring and workup 05/23: Patient still reported episodes of dizziness, denies CP, SOB, or palpitations at this time. CHADSVASC of 6, MRI with no acute issues started on Lovenox 1mg/kg will transition to PO Eliquis pending cardiology recommendation HR controlled at this time with metoprolol still in AF
--- NOTE | 2023-05-23 09:25 | ECG_ITS ---
Measurements Intervals [place] Rate: 84 P: CT: 0 QRS: -1 QRSD: 79 T: 31 QT: 358 QTc: 424 Interpretive Statements ATRIAL FIBRILLATION LOW QRS VOLTAGE IN PRECORDIAL LEADS [QRS DEFLECTION < 1.0 mV IN CHEST LEADS] ABNORMAL ECG COMPARED TO ECG 05/22/2023 09:28:49 NO SIGNIFICANT CHANGES Electronically Signed On 05-23-2023 19:15:51 EVP AND CHIEF OPERATING OFFICER by Jame Grove M.D.
[2023-05-23 09:34] LABS: Cholesterol 119 mg/dL (0-200); HDL Direct 21 mg/dL; Triglycerides 111 mg/dL (<150)
[2023-05-23 09:44] LABS: LDL Cholesterol Direct 87 mg/dL
[2023-05-23] MEDS: ENOXAPARIN 100 MG/ML SYRINGE 90 MG SUB-Q (10:00)
[2023-05-23] MEDS: PERFLUTREN LIPID MICROSPHERES 1.5 ML VIAL DILUTED TO 10 ML TOTAL VOLUME IV PUSH (11:30)
--- NOTE | 2023-05-23 11:54 | IVDEFINITY ---
Prior to administration of IV Definity the patient was educated on the risks and benefits of the imaging enhancing agent including potential adverse side effects. The patient verbalized understanding. Allergies were verified. No exclusion criteria were identified and at least one of the following inclusion criteria were met: 1) physician request, 2) patient technically difficult to image (per the [place] [employer] guidelines of two or more segments not discernable within the apical view), or 3) questionable left ventricular function. ?
--- NOTE | 2023-05-23 14:01 | PM.CNCAR ---
Assessment and Plan Assessment and plan (1) New onset a-fib: Code(s): I48.91 - Unspecified atrial fibrillation Status: Acute Plan This is a 77-year-old man with longstanding essential hypertension on GILSON-inhibitor therapy along with hydrochlorothiazide. He presents with asymptomatic atrial fibrillation of unknown onset. There was a episode of self-limited atrial pair fib several years ago as mentioned in the chart. His heart rate was in the low 100s he was placed on a modest dose of metoprolol his heart rate is now well controlled. At this point I would recommend starting oral anticoagulation therapy with apixaban and await the results of this morning's echocardiogram. We will discuss with him following discharge and at least 4-6 weeks of anticoagulation the concept of attempting cardioversion or not. It would be inappropriate/unnecessary to discuss cardioversion of his atrial fibrillation sooner than that since we do not have an accurate time of onset of this arrhythmia. Will follow him with you during the hospital stay and arrange appropriate follow-up in my office where we will then make long-term decisions regarding attempting to restore sinus rhythm or accepting a rate control/anticoagulation strategy Jame Grove MD [facility] History of Present Illness History of Present Illness Consult date/time: 05/23/23 14:01 Reason For Visit: New Onset AFib, Dizziness, R/O Stroke Narrative: This is a 77-year-old man I am seeing at the request of the hospitalist today because of atrial fibrillation. He describes no previous history of cardiac problems of which she has been made aware. He was admitted to the hospital yesterday with an episode of dizziness that was initially felt to represent vertigo he tells me now that that diagnosis is unclear. In any event he was found on evaluation in the ER to have atrial fibrillation with a heart rate of about 100-110. She was unaware of his atrial fibrillation as best as I can tell he denies any symptoms of tachycardia palpitations shortness of breath orthopnea PND or edema. He does state that he is had some symptoms of generalized weakness in recent months he says that he had some unusual pain in the left lower extremity that was evaluated by his physicians last couple of months as an outpatient which improved greatly with physical therapy. I do not have a specific diagnosis regarding that. The chart indicates he had an episode of self-limited atrial fibrillation several years ago that was coincident with a COVID infection. He does have longstanding hypertension for which he takes lisinopril. He believes his blood pressure is generally well controlled there is no history of diabetes or dyslipidemia. He is a reformed smoker having quit more than 20 years ago. Review of Systems Constitutional: Constitutional: Reports no additional constitutional complaints Eyes: Eyes: Reports no additional eye complaints ENT: Reports system reviewed and no additional complaints, except as documented Cardiovascular: Cardiovascular: Reports no additional cardiovascular complaints Respiratory: Respiratory: Reports no additional respiratory complaints Gastrointestinal: Gastrointestinal: Reports no additional gastrointestinal complaints Musculoskeletal: Musculoskeletal: Reports as per HPI Comments: Left lower extremity pain/soreness Integumentary/Breasts: Skin/Breast: Reports system reviewed and no additional complaints, except as docu Neurologic: Reports system reviewed and no additional complaints, except as documented Endocrine: Endocrine: Reports no additional endocrine complaints Hematologic/Lymphatic: Hematologic/Lymphatic: Reports no additional hematologic/lymphatic complaints Allergic/Immunologic: Allergic/Immunologic: Reports no additional allergic/immunologic complaints PMFSH Past Medical History Medical History Colon can
[2023-05-23] MEDS: APIXABAN 5 MG TABLET PO (20:47)
[2023-05-24] VITALS (13 sets, daily range): BP systolic 94–166; BP diastolic 52–85; PULSE 81–115; RESP 16–18; TEMP 36.2–36.9; O2SAT 90–98
[2023-05-24] MEDS: traZODone HCL 50 MG TABLET PO (04:15)
[2023-05-24 06:04] LABS: Hematocrit 47.4 % (42.0-52.0); Hemoglobin 16.4 g/dL (14.0-18.0); Mean Corpuscular HGB Conc 34.6 g/dl (32-36); Mean Corpuscular Hemoglobin 33.3 pg (26-34); Mean Corpuscular Volume 96.1 fl (80-100); Mean Platelet Volume 10.8 fl (7.4-10.4); Platelet Count Result 255 k/mm3 (150-375); Red Blood Count 4.93 M/mm3 (4.6-6.20); White Blood Count 6.3 K/mm3 (4.5-10.0)
[2023-05-24 06:16] LABS: Anion Gap 7 mmol/L (8-16); Blood Urea Nitrogen 17 mg/dL (9-20); Calcium 9.2 mg/dL (8.4-10.2); Carbon Dioxide 25 mmol/L (22-30); Chloride 106 mmol/L (98-107); Estimated CRCL calculation 64 ml/min; Estimated Glomerular Filt Rate > 60; Glucose 151 mg/dL (65-110); Potassium 3.5 mmol/L (3.4-5.0); Sodium 138 mmol/L (137-145)
--- NOTE | 2023-05-24 07:49 | PM.DS ---
DS: Admitting Diagnosis Discharge Date 05/24/23 Admitting Diagnosis Vertigo Atrial fibrillation with RVR Hypertension Hyperlipidemia DS: Discharge Diagnosis Discharge Diagnosis (1) Vertigo: Code(s): R42 - Dizziness and giddiness Status: Acute (2) Atrial fibrillation with rapid ventricular response: Code(s): I48.91 - Unspecified atrial fibrillation Status: Acute (3) Hypertension: Qualifiers: Hypertension type: essential hypertension Qualified Code(s): I10 - Essential (primary) hypertension Code(s): I10 - Essential (primary) hypertension Status: Chronic (4) Hyperlipidemia: Qualifiers: Hyperlipidemia type: mixed hyperlipidemia Qualified Code(s): E78.2 - Mixed hyperlipidemia Code(s): E78.5 - Hyperlipidemia, unspecified Status: Chronic DS: Summary Hospital Course Reason for hospitalization: Vertigo Atrial fibrillation with RVR Hypertension Hyperlipidemia Hospital Course: This is a 77 year old male who presented to the hospital on 05/22/23 with complaints of dizziness. 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 Chest x-ray shown subsegmental left basilar atelectasis or pneumonia, small left pleural effusion. Brain MRI was negative for any acute changes. EKG shown Atrial fibrillation with RVR. Echo shown LV systolic function as normal with an EF of 50-55%, RV function normal. Patient was started on therapeutic Lovenox and Cardiology was consulted. Cardiology started patient on low dose Metoprolol that helped control the patient's rate. They will hold off on cardioversion due to unknown onset of his arrhythmia and will follow up with him on an outpatient basis. Labs today essentially unremarkable. VSS, he is afebrile, currently on room air. Patient deniesPatient endorsesPatient is stable for discharge. He will need to follow up with Cardiology in 2 weeks and his primary care physician in 1 week. He will go home on Eliquis and Metoprolol for his A-fib. Final diagnosis: Atrial fibrillation with RVR, Vertigo Status at Discharge Cognitive/behavioral status at discharge: Alert and oriented x3 Functional status at discharge: independent ambulation Overall status at discharge: patient is progressing back to baseline Time Spent with Patient Time attestation: Total time spent providing and/or coordinating discharge services: Time spent: Greater than 30 minutes Exam Narrative: General: In no acute distress, well nourished Head: atraumatic, no encephalopathy Eyes: EOMI, PERRLA, sclera clear ENT: moist mucous membranes, nasal passages clear Neck: supple, no JVD, no adenopathy, trachea midline Cardiac: Normal S1 and S2. No murmur, gallops or friction rubs, peripheral pulses intact. Respiratory: Lungs clear to auscultation, no adventitious lung sounds Gastrointestinal: soft, non-distended, non-tender, normoactive bowel sounds. : voiding without difficulty. Extremities: moves all extremities well, no edema, good ROM, strength 5/5 Skin: clean, dry, intact. No wounds or lesions. Neuro: Alert and oriented x4, cranial nerves intact, no neuro deficits. Psych: normal mood, normal affect, interactive DS: Data Data Completed and Pending Completed studies during hospitalization: Brain MRI Chest x-ray Head Ct Echo Pending studies at discharge: None Labs on day of discharge: Labs from last 24 hours 05/24/23 05/23/23 05:28 05:22 WBC 6.3 RBC 4.93 Hgb 16.4 Hct 47.4 MCV 96.1 MCH 33.3 MCHC 34.6 RDW 12.0 Plt Count 255 MPV 10.8 H Sodium 138 Potassium 3.5 Chloride 106 Carbon Dioxide 25 Anion Gap 7 L BUN 17 Creatinine 0.90 Estim Creat Clear Calc 64 Estimated GFR > 60 Glucose 151 H Calcium 9.2 Triglycerides 111 Cholesterol 119 LDL Cholesterol Direct 87 HDL Direct 21
[2023-05-24] MEDS: METOPROLOL SUCCINATE EXT REL 25 MG TABCR PO (07:52)
[2023-05-24] MEDS: lisinopriL 10 MG TABLET PO (07:52)
[2023-05-24] MEDS: APIXABAN 5 MG TABLET PO ×2 (07:52→20:33)
[2023-05-24] MEDS: hydroCHLOROthiazide 12.5 MG CAPSULE PO (07:52)
--- NOTE | 2023-05-24 13:24 | PM.PNCARD ---
Progress Note: A&P Assessment and Plan (1) New onset a-fib: Code(s): I48.91 - Unspecified atrial fibrillation Status: Acute Plan 77-year-old man with atrial fibrillation of uncertain onset/duration. Heart rate is well controlled with modest dose of metoprolol and he is anticoagulated. He is still dizzy and lightheaded which I am confident is unrelated to his arrhythmia since his heart rate is normal and he is not at all hypotensive or orthostatic. Current medical regimen should be continued when he does get discharged I will arrange for follow-up in my office where we will discuss the options of rhythm control versus rate control further. Discuss this again with the patient and his family in the room today. Jame Grove MD [facility] Subjective Date/time seen: Date of service: 05/24/23 13:24 Interval history: Follow-up visit in this 77-year-old man with: Atrial fibrillation of unknown chronicity/duration. Heart rate is well controlled with low-dose metoprolol he is anticoagulated with apixaban Exam Const: General: comfortable and no acute distress HENMT: Mouth: Yes moist mucous membranes Eyes: Sclera: sclerae normal Neck: Neck: supple and no JVD Resp: Effort & Inspection: normal respiratory effort Auscultation: clear to auscultation bilaterally Cardio: Rate: regular rate Rhythm: abnormal rhythm irregularly irregular GI: GI Palp: Yes Soft to palpation Auscultation: normal bowel sounds Skin: General skin exam: normal color Neuro: Other: Alert and oriented x3 Objective Data Vital Signs Vital Signs: Vital Signs - 24 hr 05/23/23 14:33 05/23/23 16:00 05/23/23 20:00 Temperature 36.4 C L 36.8 C Pulse Rate 82 77 92 Respiratory Rate 14 18 Blood Pressure 101/75 90/61 L Pulse Oximetry 98 94 Oxygen Delivery 05/23/23 21:08 05/23/23 21:09 05/23/23 22:00 Temperature 36.8 C 37.0 C 36.5 C Pulse Rate 110 H 106 H 75 Respiratory Rate 18 18 18 Blood Pressure 118/95 H 129/69 127/83 Pulse Oximetry 93 94 98 Oxygen Delivery 05/24/23 06:00 05/23/23 20:00 05/24/23 00:00 Temperature 36.2 C L Pulse Rate 91 85 Respiratory Rate 18 Blood Pressure 94/52 L Pulse Oximetry 95 Oxygen Delivery Room Air 05/24/23 04:00 05/24/23 08:10 05/24/23 08:10 Temperature Pulse Rate 81 107 H Respiratory Rate Blood Pressure Pulse Oximetry Oxygen Delivery Room Air 05/24/23 10:20 05/24/23 10:20 05/24/23 10:56 Temperature 36.9 C Pulse Rate 82 Respiratory Rate 16 Blood Pressure 112/63 109/73 124/78 Pulse Oximetry 94 Oxygen Delivery Intake/Output Intake/Output: Intake & Output 05/21/23 05/22/23 05/23/23 05/24/23 23:59 23:59 23:59 23:59 Intake Total 1240 670 360 Balance 1240 670 360 Meds/Results Medications: Active Medications Generic Name Dose Route Start Last Admin Trade Name Freq PRN Reason Stop Dose Admin Acetaminophen 650 mg 05/22/23 13:07 Acetaminophen 325 Mg Tablet PO Q4H PRN Mild Pain (1-3) or Fever Hydrocodone Bitart/Acetaminophen 1 tab 05/22/23 13:07 Hydrocodone/Acetaminophen (*Crx) 5-325 Mg Tablet PO Q4H PRN Pain Rated 4-6 Apixaban 5 mg 05/23/23 21:00 05/24/23 07:52 Apixaban 5 Mg Tablet PO 5 mg Q12HR EUN Administration Hydrochlorothiazide 12.5 mg 05/23/23 09:00 05/24/23 07:52 Hydrochlorothiazide 12.5 Mg Capsule PO 06/22/23 08:59 12.5 mg QAM EUN Administration Lisinopril 10 mg 05/23/23 09:00 05/24/23 07:52 Lisinopril 10 Mg Tablet PO 06/22/23 08:59 10 mg QAM EUN Administration Metoprolol Succinate 25 mg 05/23/23 09:00 05/24/23 07:52 Metoprolol Succinate Ext Rel 25 Mg Tabcr PO 25 mg QAM EUN Administration Ondansetron HCl 4 mg 05/22/23 13:07 Ondansetron Inj 4 Mg/2 Ml Vial IV PUSH Q4H PRN Nausea Radiology Results: ITS Impressions Head CT 05/22/23 13:24 IMPRESSION: 1. No acute intracranial process. 2. Small
--- NOTE | 2023-05-24 14:04 | PM.IMPN ---
Progress Note: A&P Assessment and Plan (1) Vertigo: Code(s): R42 - Dizziness and giddiness Status: Acute Assessment and Plan: 05/24/23: Reporting lightheadedness and dizziness again today with position changes PT and OT ordered Meclizine ordered for vertigo Continue orthostatic blood pressures (2) Atrial fibrillation with rapid ventricular response: Code(s): I48.91 - Unspecified atrial fibrillation Status: Acute Assessment and Plan: 05/24/23: Is currently in A-Fib rate controlled 80s to 90s Continue metoprolol and Eliquis Continue cardiac telemetry (3) Hypertension: Qualifiers: Hypertension type: essential hypertension Qualified Code(s): I10 - Essential (primary) hypertension Code(s): I10 - Essential (primary) hypertension Status: Chronic Assessment and Plan: 05/24/23: Blood pressure ranging 109/73 to 124/78 Continue lisinopril and hydrochlorothiazide Time Spent With Patient Time with patient: Greater than 35 minutes Subjective Date/time seen: 05/24/23 14:04 Interval history: This is a 77 year old male who presented to the hospital on 05/22/23 with complaints of dizziness. 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 Chest x-ray shown subsegmental left basilar atelectasis or pneumonia, small left pleural effusion. Brain MRI was negative for any acute changes. EKG shown Atrial fibrillation with RVR. Echo shown LV systolic function as normal with an EF of 50-55%, RV function normal. Patient was started on therapeutic Lovenox and Cardiology was consulted. Cardiology started patient on low dose Metoprolol that helped control the patient's rate. They will hold off on cardioversion due to unknown onset of his arrhythmia and will follow up with him on an outpatient basis. Labs today essentially unremarkable. VSS, he is afebrile, currently on room air. Patient denies any fever, chills, vomiting, abdominal pain, diarrhea, chest pain, shortness a breath. Patient endorses headache, nausea, dizziness, lightheadedness. Patient states that he is feeling weak still today and had vertigo like symptoms when trying to get up to the side of the bed today. AFib has been rate controlled in the 90s with the metoprolol and Eliquis. He is not feeling safe for discharge today due to his vertigo like symptoms. I will go ahead and get PT and OT involved today due to his increased weakness. Review of Systems Review of Systems: All systems reviewed & are unremarkable except as noted in HPI and below Constitutional: Constitutional: Reports as per HPI and Reports no additional constitutional complaints Eyes: Eyes: Reports as per HPI and Reports no additional eye complaints ENT: Reports system reviewed and no additional complaints, except as documented and Reports as per HPI Cardiovascular: Cardiovascular: Reports as per HPI and Reports no additional cardiovascular complaints Respiratory: Respiratory: Reports as per HPI and Reports no additional respiratory complaints Gastrointestinal: Gastrointestinal: Reports as per HPI and Reports no additional gastrointestinal complaints Genitourinary: Genitourinary: Reports no additional male genitourinary complaints and Reports as per HPI Musculoskeletal: Musculoskeletal: Reports no additional musculoskeletal complaints and Reports as per HPI Integumentary/Breasts: Skin/Breast: Reports system reviewed and no additional complaints, except as docu and Reports as per HPI Neurologic: Reports system reviewed and no additional complaints, except as documented and Reports as per HPI Psychiatric: Psychiatric: Reports no additional psychiatric complaints and Reports as per HPI Exam Narrative: General: In no acute distress, well nourished Head: atraumatic, no encephalopathy Eyes: EOMI, PERRLA, sclera clear ENT: mois
[2023-05-24] MEDS: MELATONIN 5 MG TABLET PO (20:34)
[2023-05-25] VITALS (12 sets, daily range): BP systolic 101–142; BP diastolic 61–85; PULSE 84–101; RESP 18; TEMP 36.3–36.6; O2SAT 91–98
[2023-05-25 05:31] LABS: Hematocrit 48.9 % (42.0-52.0); Hemoglobin 16.3 g/dL (14.0-18.0); Mean Corpuscular HGB Conc 33.3 g/dl (32-36); Mean Corpuscular Hemoglobin 32.5 pg (26-34); Mean Corpuscular Volume 97.4 fl (80-100); Mean Platelet Volume 10.7 fl (7.4-10.4); Platelet Count Result 248 k/mm3 (150-375); Red Blood Count 5.02 M/mm3 (4.6-6.20); Red Cell Distribution Width 11.9 % (11.5-14.5); White Blood Count 7.1 K/mm3 (4.5-10.0)
[2023-05-25 05:43] LABS: Anion Gap 5 mmol/L (8-16); Blood Urea Nitrogen 18 mg/dL (9-20); Calcium 8.9 mg/dL (8.4-10.2); Carbon Dioxide 28 mmol/L (22-30); Chloride 103 mmol/L (98-107); Estimated CRCL calculation 64 ml/min; Estimated Glomerular Filt Rate > 60; Glucose 155 mg/dL (65-110); Potassium 3.2 mmol/L (3.4-5.0); Sodium 136 mmol/L (137-145)
--- NOTE | 2023-05-25 07:31 | PM.IMPN ---
Progress Note: A&P Assessment and Plan (1) Vertigo: Code(s): R42 - Dizziness and giddiness Status: Acute Assessment and Plan: 05/24/23: Reporting lightheadedness and dizziness again today with position changes PT and OT ordered Meclizine ordered for vertigo Continue orthostatic blood pressures 05/25/23: Continue with current treatment plan Case management for rehab placement versus home health. Continue PT and OT Patient continues to have lightheadedness with position changes Continue meclizine (2) Atrial fibrillation with rapid ventricular response: Code(s): I48.91 - Unspecified atrial fibrillation Status: Acute Assessment and Plan: 05/24/23: Is currently in A-Fib rate controlled 80s to 90s Continue metoprolol and Eliquis Continue cardiac telemetry 05/25/23: Currently in A fib rate controlled in the 90's Continue with current treatment plan Discontinue cardiac telemetry (3) Hypertension: Qualifiers: Hypertension type: essential hypertension Qualified Code(s): I10 - Essential (primary) hypertension Code(s): I10 - Essential (primary) hypertension Status: Chronic Assessment and Plan: 05/24/23: Blood pressure ranging 109/73 to 124/78 Continue lisinopril and hydrochlorothiazide 05/25/23: No change to current treatment plan. Time Spent With Patient Time with patient: Greater than 35 minutes Subjective Date/time seen: 05/25/23 07:31 Interval history: 05/24/23: This is a 77 year old male who presented to the hospital on 05/22/23 with complaints of dizziness. 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 Chest x-ray shown subsegmental left basilar atelectasis or pneumonia, small left pleural effusion. Brain MRI was negative for any acute changes. EKG shown Atrial fibrillation with RVR. Echo shown LV systolic function as normal with an EF of 50-55%, RV function normal. Patient was started on therapeutic Lovenox and Cardiology was consulted. Cardiology started patient on low dose Metoprolol that helped control the patient's rate. They will hold off on cardioversion due to unknown onset of his arrhythmia and will follow up with him on an outpatient basis. Labs today essentially unremarkable. VSS, he is afebrile, currently on room air. Patient denies any fever, chills, vomiting, abdominal pain, diarrhea, chest pain, shortness a breath. Patient endorses headache, nausea, dizziness, lightheadedness. Patient states that he is feeling weak still today and had vertigo like symptoms when trying to get up to the side of the bed today. AFib has been rate controlled in the 90s with the metoprolol and Eliquis. He is not feeling safe for discharge today due to his vertigo like symptoms. I will go ahead and get PT and OT involved today due to his increased weakness. 05/25/23: PT seen patient yesterday and is recommending skilled PT as he is still dizzy with changes in position. Labs resulted with Na+ 136, K+ 3.2. He remains in A fib, rate controlled. He denies any new complaints today. Care coordination asked to see patient to establish a PCP within [place]. Review of Systems Review of Systems: Twelve systems were reviewed and are negative except for as per HPI All systems reviewed & are unremarkable except as noted in HPI and below Constitutional: Constitutional: Reports as per HPI and Reports no additional constitutional complaints Eyes: Eyes: Reports as per HPI and Reports no additional eye complaints ENT: Reports system reviewed and no additional complaints, except as documented and Reports as per HPI Cardiovascular: Cardiovascular: Reports as per HPI and Reports no additional cardiovascular complaints Respiratory: Respiratory: Reports as per HPI and Reports no additional respiratory complaints Gastrointestinal: Gastr
[2023-05-25] MEDS: hydroCHLOROthiazide 12.5 MG CAPSULE PO (08:16)
[2023-05-25] MEDS: lisinopriL 10 MG TABLET PO (08:16)
[2023-05-25] MEDS: MECLIZINE HCL 25 MG TABLET PO (08:16)
[2023-05-25] MEDS: METOPROLOL SUCCINATE EXT REL 25 MG TABCR PO (08:16)
[2023-05-25] MEDS: POTASSIUM CHLORIDE 20 MEQ ER TABLET 40 MEQ PO (08:16)
[2023-05-25] MEDS: APIXABAN 5 MG TABLET PO ×2 (08:16→20:04)
[2023-05-25] MEDS: MELATONIN 5 MG TABLET PO (20:04)
[2023-05-26 05:02] VITALS: BP 103/62; PULSE 93; RESP 18; TEMP 36.4; O2SAT 96
[2023-05-26 06:06] LABS: Hemoglobin 16.2 g/dL (14.0-18.0); Mean Corpuscular HGB Conc 33.1 g/dl (32-36); Mean Corpuscular Hemoglobin 32.6 pg (26-34); Mean Corpuscular Volume 98.6 fl (80-100); Mean Platelet Volume 10.8 fl (7.4-10.4); Platelet Count Result 260 k/mm3 (150-375); Red Blood Count 4.97 M/mm3 (4.6-6.20); Red Cell Distribution Width 12.1 % (11.5-14.5); White Blood Count 7.6 K/mm3 (4.5-10.0)
[2023-05-26 06:08] LABS: Anion Gap 5 mmol/L (8-16); Blood Urea Nitrogen 22 mg/dL (9-20); Calcium 8.9 mg/dL (8.4-10.2); Carbon Dioxide 27 mmol/L (22-30); Chloride 105 mmol/L (98-107); Estimated CRCL calculation 64 ml/min; Estimated Glomerular Filt Rate > 60; Glucose 143 mg/dL (65-110); Potassium 3.7 mmol/L (3.4-5.0); Sodium 137 mmol/L (137-145)
[2023-05-26] MEDS: MECLIZINE HCL 25 MG TABLET PO (09:19)
[2023-05-26] MEDS: lisinopriL 10 MG TABLET PO (09:19)
[2023-05-26] MEDS: APIXABAN 5 MG TABLET PO (09:19)
[2023-05-26] MEDS: hydroCHLOROthiazide 12.5 MG CAPSULE PO (09:19)
[2023-05-26 09:26] VITALS: PULSE 80
[2023-05-26] MEDS: METOPROLOL SUCCINATE EXT REL 25 MG TABCR PO (09:26)
--- NOTE | 2023-05-26 11:40 | PCPTNOTE ---
Attempted to see patient for PT, however patient declined due to anticipated discharge.
--- NOTE | 2023-05-26 13:00 | PM.DS ---
DS: Admitting Diagnosis Discharge Date 05/26/23 Admitting Diagnosis vertigo atrial fibrillation with RVR hypertension hyperlipidemia DS: Discharge Diagnosis Discharge Diagnosis (1) Vertigo: Code(s): R42 - Dizziness and giddiness Status: Acute (2) Atrial fibrillation with rapid ventricular response: Code(s): I48.91 - Unspecified atrial fibrillation Status: Acute (3) Hypertension: Qualifiers: Hypertension type: essential hypertension Qualified Code(s): I10 - Essential (primary) hypertension Code(s): I10 - Essential (primary) hypertension Status: Chronic DS: Summary Hospital Course Reason for hospitalization: vertigo atrial fibrillation with RVR Hospital Course: This is a 77 year old male who presented to the hospital on 05/22/23 with complaints of dizziness. 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 Chest x-ray shown subsegmental left basilar atelectasis or pneumonia, small left pleural effusion. Brain MRI was negative for any acute changes. EKG shown Atrial fibrillation with RVR. Echo shown LV systolic function as normal with an EF of 50-55%, RV function normal. Patient was started on therapeutic Lovenox and Cardiology was consulted. Cardiology started patient on low dose Metoprolol that helped control the patient's rate. They will hold off on cardioversion due to unknown onset of his arrhythmia and will follow up with him on an outpatient basis. Labs today essentially unremarkable. VSS, he is afebrile, currently on room air. Patient denies any fever, chills, vomiting, abdominal pain, diarrhea, chest pain, shortness a breath.? Patient endorses headache, nausea, dizziness, lightheadedness.? Patient states that he is feeling weak still today and had vertigo like symptoms when trying to get up to the side of the bed today.? AFib has been rate controlled in the 90s with the metoprolol and Eliquis.? He is not feeling safe for discharge today due to his vertigo like symptoms.? I will go ahead and get PT and OT involved today due to his increased weakness. 05/25/23: PT seen patient yesterday and is recommending skilled PT as he is still dizzy with changes in position.? Labs resulted with Na+ 136, K+ 3.2. He remains in A fib, rate controlled. He denies any new complaints today. Care coordination asked to see patient to establish a PCP within [place].? 05/26/23: Labs today essentially unremarkable. Patient denies any new complaints. He is stable for discharge at this time. He will need to continue on meclizine for his vertigo symptoms and continue metoprolol and Eliquis for his AFib. He is currently rate controlled in the 80s. He will need to follow up with Cardiology here within the next couple of weeks. Carotid Doppler study shown moderate degree stenosis of the proximal right internal carotid artery measuring 65% left internal carotid artery 0% stenosis. Final diagnosis: AFib with RVR, vertigo Status at Discharge Cognitive/behavioral status at discharge: alert oriented x3 Functional status at discharge: independent ambulation Overall status at discharge: patient is progressing back to baseline Time Spent with Patient Time attestation: Total time spent providing and/or coordinating discharge services: Time spent: Greater than 30 minutes Exam Narrative: General: In no acute distress, well nourished Head: atraumatic, no encephalopathy Eyes: EOMI, PERRLA, sclera clear ENT: moist mucous membranes, nasal passages clear Neck: supple, no JVD, no adenopathy, trachea midline Cardiac: Normal S1 and S2. Irregular rhythm, controlled rate.? No murmur, gallops or friction rubs, peripheral pulses intact. Respiratory: Lungs clear to auscultation, no adventitious lung sounds Gastrointestinal: soft, non-distended, non-tender, normoactive bowel sounds. : voiding wit
[2023-05-26 13:35] VITALS: BP 114/72; PULSE 66; RESP 16; TEMP 36.6; O2SAT 99
== END 2023-05-26 16:25 | disposition home or self-care (01) | DRG 149 ==
LOC: ANHED 09:44 → ANH3MEDSUR 13:26 → ANH2MED 14:49
PROVIDERS: Nurse Practitioner Family; Physician Assistant; Admitting Provider Internal Medicine; Emergency Provider Emergency Medicine; PCP Internal Medicine; Visit Provider Nurse Practitioner Acute Care
DX: R42 Dizziness and giddiness (principal); I48.0 Paroxysmal atrial fibrillation; I10 Essential (primary) hypertension; E78.5 Hyperlipidemia, unspecified; C61 Malignant neoplasm of prostate; Z20.822 Contact with and (suspected) exposure to COVID-19; Z85.038 Personal history of other malignant neoplasm of large intestine; Z86.73 Personal history of transient ischemic attack (TIA), and cerebral infarction without residual deficits
CPT/HCPCS: 36415; 69210; 70450; 70551; 71045; 80048; 80053; 80061; 83735; 83880; 84443; 85025; 85027; 85610; 85730; 87636; 93005; 93880; 96361; 96374; 97110; 97116; 97161; 97165; 99285; A9270; C8929; G0378; J1650; J7030; Q9957

== ENCOUNTER 2023-06-26 01:14 | Day surgery (SDC) | payer MEDICARE, OTHER, SELFPAY ==
[2023-06-25 11:00] VITALS: BMI 32.9
[2023-06-26] VITALS (7 sets, daily range): BP systolic 104–132; BP diastolic 69–95; PULSE 64–97; RESP 17–24; TEMP 36.5; O2SAT 94–99
--- NOTE | 2023-06-26 07:30 | ECG_ITS ---
Measurements Intervals [place] Rate: 73 P: 92 MA: 189 QRS: -12 QRSD: 80 T: 16 QT: 358 QTc: 397 Interpretive Statements SINUS RHYTHM LOW QRS VOLTAGE IN PRECORDIAL LEADS BORDERLINE ECG COMPARED TO ECG 06/26/2023 07:45:18 SINUS RHYTHM NOW PRESENT Electronically Signed On 06-26-2023 9:26:20 CDT by Amaury Osman D.O.
[2023-06-26 08:09] LABS: Anion Gap 1 mmol/L (8-16); Blood Urea Nitrogen 25 mg/dL (9-20); Calcium 9.2 mg/dL (8.4-10.2); Carbon Dioxide 33 mmol/L (22-30); Chloride 103 mmol/L (98-107); Estimated CRCL calculation 57 ml/min; Estimated Glomerular Filt Rate > 60; Glucose 150 mg/dL (65-110); Magnesium 2.1 mg/dL (1.6-2.3); Potassium 4.1 mmol/L (3.4-5.0); Sodium 137 mmol/L (137-145)
--- NOTE | 2023-06-26 09:00 | ECG_ITS ---
Measurements Intervals [place] Rate: 92 P: HI: 0 QRS: -10 QRSD: 77 T: 16 QT: 318 QTc: 394 Interpretive Statements ATRIAL FIBRILLATION DELAYED PRECORDIAL R/S TRANSITION LOW QRS VOLTAGE IN PRECORDIAL LEADS BORDERLINE T WAVE ABNORMALITY- ANT/INF LEADS BASELINE ARTIFACT- I, III, AVR, AVL, AVF, V3 ABNORMAL ECG COMPARED TO ECG 05/23/2023 13:13:09 NO SIGNIFICANT CHANGES Electronically Signed On 06-26-2023 7:56:02 CDT by Amaury Osman D.O.
--- NOTE | 2023-06-26 09:02 | WPDMODSED ---
Moderate Sedation Note-Pt Data Patient Data Diagnosis: Recent onset of atrial fibrillation Present Complaint: No complaints Procedure to be performed/Plan: DC cardioversion Allergies Allergy/AdvReac Type Severity Reaction Status Date / Time Iodinated Contrast Media Allergy hives Verified 06/26/23 07:48 adhesive AdvReac Itching Verified 06/26/23 07:48 Home Medications Medication Instructions Recorded Confirmed Type lisinopril 10 1 tablet PO QAM 10/01/21 06/26/23 History mg-hydrochlorothiazide 12.5 mg tablet apixaban 5 mg tablet (Eliquis) 5 mg PO Q12HR #60 tabs 05/24/23 06/26/23 Rx metoprolol succinate 25 mg 25 mg PO QAM #30 tabs 05/24/23 06/25/23 Rx tablet,extended release 24 hr (Toprol XL) atorvastatin 10 mg tablet 10 mg PO DAILY 06/25/23 06/25/23 History Current Medications: Active Medications Sodium Chloride (Normal Saline Iv) 1,000 mls @ 30 mls/hr IV CONT .Q24H EUN Sedation/Anesthesia: No previous sedation/anesthesia problems (including family history). [facility] Past Medical History Medical History Colon cancer (2014) Hyperlipidemia Hypertension Paroxysmal atrial fibrillation (02/2020) Prostate cancer Surgical History Surgical History History of basal cell carcinoma excision History of colectomy Family History Family History Sibling Family history of malignant neoplasm Father Family history of coronary artery disease Mother Family history of coronary artery disease Social History Social History Social History: Surrogate medical decision maker: Maria Guadalupe Ornelasne, spouse. Code status: Full code. Smoking status: Former smoker Second hand tobacco smoke exposure: No Smoking end date: 04/06/11 Alcohol intake: never Substance use: never Substance use type: does not use Do You Feel Safe in your Home?: Yes Lack of Transportation: No Lack of Food: Never True Current Housing: I Have Housing Concerned About Future Housing: No Difficulty Paying Gas/Electric Bills: No Difficulty Paying for Meds: No Currently Unemployed: No Education: Decline to Answer Difficulty w/ Childcare or Family Care: No Living arrangements: with family Additional living arrangements comments: Lives with spouse in [place]. He has 3 sons and 2 step children. 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 Spiritual care concerns: No Mod Sed Physical Exam Physical Exam Pre Procedural Exam: Normal: Appearance, Neck, Throat, Airway, Lungs, Heart Size, Neuro Exam and Extremities and Variation: Heart Rate (Irregularly irregular) and Heart Rhythm Hours since solid foods: 12 Hours since liquid intake: 12 Mallampati Classification: class II Internal Medicine - PN: Obj Da Vital Signs Vital Signs: Vital Signs - 24 hr 06/26/23 07:49 Temperature 36.5 C Pulse Rate 88 Respiratory Rate 19 Blood Pressure 132/93 H Pulse Oximetry 94 Oxygen Delivery Room Air Meds/Results Medications: Active Medications Generic Name Dose Route Start Last Admin Trade Name Freq PRN Reason Stop Dose Admin Sodium Chloride 1,000 mls @ 30 mls/hr 06/26/23 07:30 Normal Saline Iv IV CONT .Q24H EUN Labs 06/26/23 07:47 Labs: Laboratory Results - last 24 hr 06/26/23 07:47 Sodium 137 Potassium 4.1 Chloride 103 Carbon Dioxide 33 H Anion Gap 1 L BUN 25 H Creatinine 1.00 Estim Creat Clear Calc 57 Estimated GFR > 60 Glucose 150 H Calcium 9.2 Magnesium 2.1 ASA Classification/Sedation ASA Classification/Sedation ASA Class: II Emergent: No Risks: Risks, benefits and alternatives explained and patient/family accepted plan for sedation. Patient re-ev
--- NOTE | 2023-06-26 09:18 | WPDCARDPROC ---
Cardiac Cath Procedure Note Date of procedure:: 06/26/23 Performing physician:: Jame Grove MD Indication:: Persistent atrial fibrillation Brief clinical history:: This is a 78-year-old man with history of hypertension recent COVID infection. He was found to be in atrial fibrillation of unknown duration during a recent admission to the hospital. He was rate controlled and anticoagulated with metoprolol and apixaban. Following office appointment an attempt at restoring sinus rhythm electrically has been recommended and scheduled for this morning Procedure Procedure performed:: DC cardioversion Sedation/Medication given:: Intravenous propofol in aliquots total dose 70 mg Estimated blood loss:: 0 Procedure note:: Patient was brought to the cardiac catheterization lab holding area in the postabsorptive state. He had defibrillator patches placed in the AP position in the defibrillator synchronized 200 joules output. He was then sedated with propofol as detailed above. He was counter shocked 1 time in a synchronized fashion which restored normal sinus rhythm. Findings:: As above Conclusion:: Successful uncomplicated DC cardioversion terminating atrial fibrillation, restoring sinus rhythm with 200 joules x1 shock Jame Grove MD FACC Assessment and Plan Assessment and plan (1) New onset a-fib: Code(s): I48.91 - Unspecified atrial fibrillation Status: Acute
== END 2023-06-26 10:19 | disposition home or self-care (01) ==
PROVIDERS: PCP Internal Medicine; Visit Provider Specialist
PROC: 5A2204Z Restoration of Cardiac Rhythm, Single (ICD-10-PCS; principal; 2023-06-26 09:00)
DX: I48.19 Other persistent atrial fibrillation (principal); I10 Essential (primary) hypertension; E78.5 Hyperlipidemia, unspecified; Z85.46 Personal history of malignant neoplasm of prostate; Z85.038 Personal history of other malignant neoplasm of large intestine; Z90.49 Acquired absence of other specified parts of digestive tract; Z87.891 Personal history of nicotine dependence
CPT/HCPCS: 36415; 80048; 83735; 92960; A9270; J2704; J7030

== ENCOUNTER 2024-07-26 09:20 | Outpatient (CLI) | payer MEDICARE, SELFPAY ==
--- OUTSIDE RECORDS SUMMARY | 2024-07-26 10:25 | XMS_ITS | Data Portability ---
[facility] [address] [place] [address] Care Team Providers Care Concession Worker Name Role Phone PEDRO DAVID Primary Care Provider Unavailabl e Assessment Encounter Date Assessment Date Assessment LastModified by Organization Details LastModified Time 08/21/2023 08/21/2023 Blood pressure well-controlled LDL 65 diagnosis and assessment and plan have been discussed he will follow-up with me in 4 months he does not want to pursue any screenings or immunizations Not available 09/27/2023 21:51:06 11/10/2023 11/10/2023 we will continue current therapy we will follow up regularly scheduled appointment CBC CMP lipid x-ray right check uric acid doxycycline 100 b.i.d. 1 week Medrol Dosepak Not available 11/28/2023 20:23:23 01/15/2024 01/15/2024 x-ray femur x-ray knee short term hydrocodone for severe pain I am going to get him in physical therapy I will see him back in 3 weeks [email or web address] Not available 01/15/2024 16:20:50 06/09/2024 06/09/2024 CBC CMP A1c MINDY T3-T4 TSH B12 folic acid. Gabapentin 200 q.h.s. EMG nerve conduction studies legs follow up 6 weeks Not available 06/10/2024 07:23:29 07/21/2024 07/21/2024 Suspect some neuropathy we will await nerve conduction test the gabapentin is doing fine so we will continue that see me back in 3 months Not available 07/23/2024 22:00:54 Plan of Treatment Reminders Order Date Submit Date Provider Last Modified By Organization Details Last Modified Time Details Appointments ANY 15 2024 01:00P Alana David MD Not available Not available Not available Lab uric acid, serum or plasma 2023 024 [place] [facility], [address], [place], [address], 11/11/2023 08:26:15 lipid panel, serum 2023 024 [place] [facility], [address], [place], [address], 11/11/2023 08:26:11 CMP, serum or plasma 2023 024 [place] [facility], [address], [place], [address], 11/11/2023 08:26:13 CBC w/ auto diff 2023 024 [place] [facility], [address], [place], [address], 11/11/2023 08:26:16 Referral None recorded. Procedures None recorded. Surgeries None recorded. Imaging XR, knee, 3 view [address] ([facility]), [address] [place], [address], 01/15/2024 15:56:13 XR, femur [address] ([facility]), [address] [place], [address], 01/15/2024 15:56:13 XR, ankle [address] ([facility]), [address] [place], [address], 11/10/2023 16:56:33 Medication Orders metformin 500 mg tablet [address]/[facility] #[id number], [address], [place], [address], 07/22/2024 11:30:33 Medrol ([place]) 4 mg tablets in a dose pack 2023 [facility] #[id number], [address], [place], [place], [id number], 01/15/2024 12:30:24 doxycycli ne hyclate 100 mg tablet 2023 [facility] #[id number], [address], [place], [place], [id number], 01/15/2024 12:30:33 Patient TargetsNo targets recorded. Patient Instructions Encounter Date Encounter Id Patient Instructions Last Modified By Organization Details Last Modified Time 11/10/2023 [id number] A healthy lifestyle: care instructions [email or web address] Not available 11/10/2023 16:56:33 01/15/2024 [id number] A healthy lifestyle: care instructions [email or web address] Not available 01/15/2024 15:56:13 physical therapy* [email or web address] Not availabl e 01/20/2024 14:27:23 06/09/2024 [id number] A healthy lifestyle: care instructions [email or web address] Not available 06/10/2024 07:24:35 07/21/2024 [id number] A healthy lifestyle: care instructions [email or web address] Not available 07/21/2024 14:16:27 Reason for Referral None Reported. Results Created Date Observation Date Name Description Value Unit Range Abnormal Flag Note LastModifiedBy Organization Detail LastModifiedTime 07/22/1907/23/2023 LIPID PANEL cholesterol, total 135 mg/dL 100-19 9 Not Available [facility] ([facility]) [address] [place], [address], 07/23/2023 08:32:36 07/22/19 24 07/23/2023 LIPID PANEL triglyceride s 191 mg/dL 0-149 above high normal Not Available [facility] ([facility]) [address] [place], [address], 07/23/2023 08:32:36 07/22/19 24 07/23/2023 LIPID PANEL HDL cholesterol 38 mg/dL >39 below low normal Not Available [facility] ([facility]) [address] [place], [address], 07/23/2023 08:32:36 07/22/19 24 07/23/2023 LIPID PANEL VLDL cholesterol abbie 32 mg/dL 5-40 Not Available [facility] ([facility]) [address] [place], [address], 07/23/2023 08:32:36 07/22/19 24 07/23/2023 LIPID PANEL LDL chol calc ([email or web address] 65 mg/dL 0-99 Not Available [facility] ([facility]) [address] [place], [address], 07/23/2023 08:32:36 07/22/19 24 07/23/2023 COMP. METAB OLIC PANEL (14) glucose 115 mg/dL 70-99 above high normal Not Available [facility] ([facility]) [address] [place], [address], 07/23/2023 08:32:36 07/22/19 24 07/23/2023 COMP. METAB OLIC PANEL (14) BUN 22 mg/dL 8-27 Not Available [facility] ([facility]) [address] [place], [address], 07/23/2023 08:32:36 07/22/19 24 07/23/2023 COMP. METAB OLIC PANEL (14) creatinine 1.09 mg/dL 0.76-1 .27 Not Available [facility] ([facility]) [address] [place], [address], 07/23/2023 08:32:36 07/22/19 24 07/23/2023 COMP. METAB OLIC PANEL (14) eGFR 69 mL/mi n/1.7 3 >59 Not Available [facility] ([facility]) [address] [place], [address], 07/23/2023 08:32:36 07/22/19 24 07/23/2023 COMP. METAB OLIC PANEL (14) BUN/creatini ne ratio 20 10-24 Not Available [facility] ([facility]) [address] [place], [address], 07/23/2023 08:32:36 07/22/19 24 07/23/2023 COMP. METAB OLIC PANEL (14) sodium 142 mmol/ L 134-14 4 Not Available [facility] ([facility]) [address] [place], [address], 07/23/2023 08:32:36 07/22/19 24 07/23/2023 COMP. METAB OLIC PANEL (14) potassium 4.4 mmol/ L 3.5-5. 2 Not Available [facility] ([facility]) [address] [place], [address], 07/23/2023 08:32:36 07/22/19 24 07/23/2023 COMP. METAB OLIC PANEL (14) chloride 103 mmol/ L 96-106 Not Available [facility] ([facility]) [address] [place], [address], 07/23/2023 08:32:36 07/22/19 24 07/23/2023 COMP. METAB OLIC PANEL (14) carbon dioxide, total 24 mmol/ L 20-29 Not Available [facility] ([facility]) [address] [place], [address], 07/23/2023 08:32:36 07/22/19 24 07/23/2023 COMP. METAB OLIC PANEL (14) calcium 9.1 mg/dL 8.6-10 .2 Not Available [facility] ([facility]) [address], [place], [address], 07/23/2023 08:32:36 07/22/19 24 07/23/2023 COMP. METAB OLIC PANEL (14) protein, total 6.4 g/dL 6.0-8. 5 Not Available [facility] ([facility]) [address] [place], [address], 07/23/2023 08:32:36 07/22/19 24 07/23/2023 COMP. METAB OLIC PANEL (14) albumin 4.3 g/dL 3.8-4. 8 Not Available [facility] ([facility]) [address] [place], [address], 07/23/2023 08:32:36 07/22/19 24 07/23/2023 COMP. METAB OLIC PANEL (14) globulin, total 2.1 g/dL 1.5-4. 5 Not Available [facility] ([facility]) [address], [place], [address], 07/23/2023 08:32:36 07/22/19 24 07/23/2023 COMP. METAB OLIC PANEL (14) A/G ratio 2.0 1.2-2. 2 Not Available [facility] ([facility]) [address] [place], [address], 07/23/2023 08:32:36 07/22/19 24 07/23/2023 COMP. METAB OLIC PANEL (14) bilirubin, total 0.8 mg/dL 0.0-1. 2 Not Available [facility] ([facility]) [address] [place], [address], 07/23/2023 08:32:36 07/22/19 24 07/23/2023 COMP. METAB OLIC PANEL (14) alkaline phosphatase 60 IU/L 44-121 Not Available [facility] ([facility]) [address] [place], [address], 07/23/2023 08:32:36 07/22/19 24 07/23/2023 COMP. METAB OLIC PANEL (14) AST (SGOT) 22 IU/L 0-40 Not Available [facility] ([facility]) [address], [place], [address], 07/23/2023 08:32:36 07/22/19 24 07/23/2023 COMP. METAB OLIC PANEL (14) ALT (SGPT) 24 IU/L 0-44 Not Available [facility] ([facility]) [address], [place], [address], 07/23/2023 08:32:36 07/22/19 24 07/23/2023 CBC WITH DIFFE RENTI AL/PL ATELE T WBC 6.7 x10e3 /uL 3.4-10 .8 Not Available [facility] ([facility]) [address] [place], [address], 07/23/2023 08:32:37 07/22/19 24 07/23/2023 CBC WITH DIFFE RENTI AL/PL ATELE T RBC 5.08 x10e6 /uL 4.14-5 .80 Not Available [facility] ([facility]) [address] [place], [address], 07/23/2023 08:32:37 07/22/19 24 07/23/2023 CBC WITH DIFFE RENTI AL/PL ATELE T hemoglobin 16.8 g/dL 13.0-1 7.7 Not Available [facility] ([facility]) [address] [place], [address], 07/23/2023 08:32:37 07/22/19 24 07/23/2023 CBC WITH DIFFE RENTI AL/PL ATELE T hematocrit 49.5 % 37.5-5 1.0 Not Available [facility] ([facility]) [address] [place], [address], 07/23/2023 08:32:37 07/22/19 24 07/23/2023 CBC WITH DIFFE RENTI AL/PL ATELE T MCV 97 fL 79-97 Not Available [facility] ([facility]) [address], [place], [address], 07/23/2023 08:32:37 07/22/19 24 07/23/2023 CBC WITH DIFFE RENTI AL/PL ATELE T MCH 33.1 pg 26.6-3 3.0 above high normal Not Available [facility] ([facility]) [address], [place], [address], 07/23/2023 08:32:37 07/22/19 24 07/23/2023 CBC WITH DIFFE RENTI AL/PL ATELE T MCHC 33.9 g/dL 31.5-3 5.7 Not Available [facility] ([facility]) [address], [place], [address], 07/23/2023 08:32:37 07/22/19 24 07/23/2023 CBC WITH DIFFE RENTI AL/PL ATELE T RDW 11.6 % 11.6-1 5.4 Not Available [facility] ([facility]) [address], [place], [address], 07/23/2023 08:32:37 07/22/19 24 07/23/2023 CBC WITH DIFFE RENTI AL/PL ATELE T platelets 284 x10e3 /uL 150-45 0 Not Available [facility] ([facility]) [address], [place], [address], 07/23/2023 08:32:37 07/22/19 24 07/23/2023 CBC WITH DIFFE RENTI AL/PL ATELE T neutrophils 68 % notest ab. Not Available [facility] ([facility]) [address], [place], [address], 07/23/2023 08:32:37 04/17/20 24 07/23/2023 CBC WITH DIFFE RENTI AL/PL ATELE T lymphs 17 % notest ab. Not Available [facility] ([facility]) [address], [place], [address], 07/23/2023 08:32:37 07/22/19 24 07/23/2023 CBC WITH DIFFE RENTI AL/PL ATELE T monocytes 11 % notest ab. Not Available [facility] ([facility]) [address], [place], [address], 07/23/2023 08:32:37 07/22/19 24 07/23/2023 CBC WITH DIFFE RENTI AL/PL ATELE T eos 3 % notest ab. Not Available [facility] ([facility]) [address], [place], [address], 07/23/2023 08:32:37 07/22/19 24 07/23/2023 CBC WITH DIFFE RENTI AL/PL ATELE T basos 1 % notest ab. Not Available [facility] ([facility]) [address], [place], [address], 07/23/2023 08:32:37 07/22/19 24 07/23/2023 CBC WITH DIFFE RENTI AL/PL ATELE T neutrophils (absolute) 4.5 x10e3 /uL 1.4-7. 0 Not Available [facility] ([facility]) [address], [place], [address], 07/23/2023 08:32:37 07/22/19 24 07/23/2023 CBC WITH DIFFE RENTI AL/PL ATELE T lymphs (absolute) 1.2 x10e3 /uL 0.7-3. 1 Not Available [facility] ([facility]) [address], [place], [address], 07/23/2023 08:32:37 07/22/19 24 07/23/2023 CBC WITH DIFFE RENTI AL/PL ATELE T monocytes(ab solute) 0.7 x10e3 /uL 0.1-0. 9 Not Available [facility] ([facility]) [address], [place], [address], 07/23/2023 08:32:37 07/22/19 24 07/23/2023 CBC WITH DIFFE RENTI AL/PL ATELE T eos (absolute) 0.2 x10e3 /uL 0.0-0. 4 Not Available [facility] ([facility]) [address], [place], [address], 07/23/2023 08:32:37 07/22/19 24 07/23/2023 CBC WITH DIFFE RENTI AL/PL ATELE T baso (absolute) 0.1 x10e3 /uL 0.0-0. 2 Not Available [facility] ([facility]) [address], [place], [address], 07/23/2023 08:32:37 07/22/19 24 07/23/2023 CBC WITH DIFFE RENTI AL/PL ATELE T immature granulocytes 0 % notest ab. Not Available [facility] ([facility]) [address], [place], [address], 07/23/2023 08:32:37 07/22/19 24 07/23/2023 CBC WITH DIFFE RENTI AL/PL ATELE T immature grans (abs) 0.0 x10e3 /uL 0.0-0. 1 Not Available [facility] ([facility]) [address] [place], [address], 07/23/2023 08:32:37 11/10/19 24 11/11/2023 LIPID PANEL cholesterol, total 218 mg/dL 100-19 9 above high normal Not Available [facility] ([facility]) [address] [place], [address], 11/11/2023 08:26:11 11/10/19 24 11/11/2023 LIPID PANEL triglyceride s 271 mg/dL 0-149 above high normal Not Available [facility] ([facility]) [address] [place], [address], 11/11/2023 08:26:11 11/10/19 24 11/11/2023 LIPID PANEL HDL cholesterol 34 mg/dL >39 below low normal Not Available [facility] ([facility]) [address] [place], [address], 11/11/2023 08:26:11 11/10/19 24 11/11/2023 LIPID PANEL VLDL cholesterol abbie 49 mg/dL 5-40 above high normal Not Available [facility] ([facility]) [address] [place], [address], 11/11/2023 08:26:11 11/10/19 24 11/11/2023 LIPID PANEL LDL chol calc (nih) 135 mg/dL 0-99 above high normal Not Available [facility] ([facility]) [address] [place], [address], 11/11/2023 08:26:11 11/10/19 24 11/11/2023 COMP. METAB OLIC PANEL (14) glucose 135 mg/dL 70-99 above high normal Not Available [facility] ([facility]) [address] [place], [address], 11/11/2023 08:26:13 11/10/19 24 11/11/2023 COMP. METAB OLIC PANEL (14) BUN 17 mg/dL 8-27 Not Available [facility] ([facility]) [address] [place], [address], 11/11/2023 08:26:13 11/10/19 24 11/11/2023 COMP. METAB OLIC PANEL (14) creatinine 1.01 mg/dL 0.76-1 .27 Not Available [facility] ([facility]) [address] [place], [address], 11/11/2023 08:26:13 11/10/19 24 11/11/2023 COMP. METAB OLIC PANEL (14) eGFR 76 mL/mi n/1.7 3 >59 Not Available [facility] ([facility]) [address], [place], [address], 11/11/2023 08:26:13 11/10/19 24 11/11/2023 COMP. METAB OLIC PANEL (14) BUN/creatini ne ratio 17 10-24 Not Available [facility] ([facility]) [address], [place], [address], 11/11/2023 08:26:13 11/10/19 24 11/11/2023 COMP. METAB OLIC PANEL (14) sodium 139 mmol/ L 134-14 4 Not Available [facility] ([facility]) [address], [place], [address], 11/11/2023 08:26:13 11/10/19 24 11/11/2023 COMP. METAB OLIC PANEL (14) potassium 4.4 mmol/ L 3.5-5. 2 Not Available [facility] ([facility]) [address], [place], [address], 11/11/2023 08:26:13 11/10/19 24 11/11/2023 COMP. METAB OLIC PANEL (14) chloride 101 mmol/ L 96-106 Not Available [facility] ([facility]) [address], [place], [address], 11/11/2023 08:26:13 11/10/19 24 11/11/2023 COMP. METAB OLIC PANEL (14) carbon dioxide, total 23 mmol/ L 20-29 Not Available [facility] ([facility]) [address] [place], [address], 11/11/2023 08:26:13 11/10/19 24 11/11/2023 COMP. METAB OLIC PANEL (14) calcium 9.5 mg/dL 8.6-10 .2 Not Available [facility] ([facility]) [address], [place], [address], 11/11/2023 08:26:13 11/10/19 24 11/11/2023 COMP. METAB OLIC PANEL (14) protein, total 6.7 g/dL 6.0-8. 5 Not Available [facility] ([facility]) [address], [place], [address], 11/11/2023 08:26:13 11/10/19 24 11/11/2023 COMP. METAB OLIC PANEL (14) albumin 4.2 g/dL 3.8-4. 8 Not Available [facility] ([facility]) [address], [place], [address], 11/11/2023 08:26:13 11/10/19 24 11/11/2023 COMP. METAB OLIC PANEL (14) globulin, total 2.5 g/dL 1.5-4. 5 Not Available [facility] ([facility]) [address], [place], [address], 11/11/2023 08:26:13 11/10/19 24 11/11/2023 COMP. METAB OLIC PANEL (14) bilirubin, total 0.5 mg/dL 0.0-1. 2 Not Available [facility] ([facility]) [address], [place], [address], 11/11/2023 08:26:13 11/10/19 24 11/11/2023 COMP. METAB OLIC PANEL (14) alkaline phosphatase 55 IU/L 44-121 Not Available [facility] ([facility]) [address], [place], [address], 11/11/2023 08:26:13 11/10/19 24 11/11/2023 COMP. METAB OLIC PANEL (14) AST (SGOT) 16 IU/L 0-40 Not Available [facility] ([facility]) [address] [place], [address], 11/11/2023 08:26:13 11/10/19 24 11/11/2023 COMP. METAB OLIC PANEL (14) ALT (SGPT) 22 IU/L 0-44 Not Available [facility] ([facility]) [address], [place], [address], 11/11/2023 08:26:13 11/10/19 24 11/11/2023 URIC ACID uric acid 8.5 mg/dL 3.8-8. 4 above high normal Thera reny fowler t for gout patie nts: <6.0 Not Available [facility] ([facility]) [address], [place], [address], 11/11/2023 08:26:14 11/10/19 24 11/11/2023 CBC WITH DIFFE RENTI AL/PL ATELE T WBC 8.3 x10e3 /uL 3.4-10 .8 Not Available [facility] ([facility]) [address], [place], [address], 11/11/2023 08:26:16 11/10/19 24 11/11/2023 CBC WITH DIFFE RENTI AL/PL ATELE T RBC 5.31 x10e6 /uL 4.14-5 .80 Not Available [facility] ([facility]) [address], [place], [address], 11/11/2023 08:26:16 11/10/19 24 11/11/2023 CBC WITH DIFFE RENTI AL/PL ATELE T hemoglobin 17.7 g/dL 13.0-1 7.7 Not Available [facility] ([facility]) [address] [place], [address], 11/11/2023 08:26:16 11/10/19 24 11/11/2023 CBC WITH DIFFE RENTI AL/PL ATELE T hematocrit 52.3 % 37.5-5 1.0 above high normal Not Available [facility] ([facility]) [address], [place], [address], 11/11/2023 08:26:16 11/10/19 24 11/11/2023 CBC WITH DIFFE RENTI AL/PL ATELE T MCV 99 fL 79-97 above high normal Not Available [facility] ([facility]) [address], [place], [address], 11/11/2023 08:26:16 11/10/19 24 11/11/2023 CBC WITH DIFFE RENTI AL/PL ATELE T MCH 33.3 pg 26.6-3 3.0 above high normal Not Available [facility] ([facility]) [address], [place], [address], 11/11/2023 08:26:16 11/10/19 24 11/11/2023 CBC WITH DIFFE RENTI AL/PL ATELE T MCHC 33.8 g/dL 31.5-3 5.7 Not Available [facility] ([facility]) [address] [place], [address], 11/11/2023 08:26:16 11/10/19 24 11/11/2023 CBC WITH DIFFE RENTI AL/PL ATELE T RDW 11.6 % 11.6-1 5.4 Not Available [facility] ([facility]) [address] [place], [address], 11/11/2023 08:26:16 11/10/19 24 11/11/2023 CBC WITH DIFFE RENTI AL/PL ATELE T platelets 300 x10e3 /uL 150-45 0 Not Available [facility] ([facility]) [address] [place], [address], 11/11/2023 08:26:16 11/10/19 24 11/11/2023 CBC WITH DIFFE RENTI AL/PL ATELE T neutrophils 73 % notest ab. Not Available [facility] ([facility]) [address], [place], [address], 11/11/2023 08:26:16 11/10/19 24 11/11/2023 CBC WITH DIFFE RENTI AL/PL ATELE T lymphs 15 % notest ab. Not Available [facility] ([facility]) [address], [place], [address], 11/11/2023 08:26:16 11/10/19 24 11/11/2023 CBC WITH DIFFE RENTI AL/PL ATELE T monocytes 9 % notest ab. Not Available [facility] ([facility]) [address], [place], [address], 11/11/2023 08:26:16 11/10/19 24 11/11/2023 CBC WITH DIFFE RENTI AL/PL ATELE T eos 2 % notest ab. Not Available [facility] ([facility]) [address], [place], [address], 11/11/2023 08:26:16 11/10/19 24 11/11/2023 CBC WITH DIFFE RENTI AL/PL ATELE T basos 1 % notest ab. Not Available [facility] ([facility]) [address], [place], [address], 11/11/2023 08:26:16 11/10/19 24 11/11/2023 CBC WITH DIFFE RENTI AL/PL ATELE T neutrophils (absolute) 6.0 x10e3 /uL 1.4-7. 0 Not Available [facility] ([facility]) [address], [place], [address], 11/11/2023 08:26:16 11/10/19 24 11/11/2023 CBC WITH DIFFE RENTI AL/PL ATELE T lymphs (absolute) 1.3 x10e3 /uL 0.7-3. 1 Not Available [facility] ([facility]) [address], [place], [address], 11/11/2023 08:26:16 11/10/19 24 11/11/2023 CBC WITH DIFFE RENTI AL/PL ATELE T monocytes(ab solute) 0.8 x10e3 /uL 0.1-0. 9 Not Available [facility] ([facility]) [address], [place], [address], 11/11/2023 08:26:16 11/10/19 24 11/11/2023 CBC WITH DIFFE RENTI AL/PL ATELE T eos (absolute) 0.2 x10e3 /uL 0.0-0. 4 Not Available [facility] ([facility]) [address], [place], [address], 11/11/2023 08:26:16 11/10/19 24 11/11/2023 CBC WITH DIFFE RENTI AL/PL ATELE T baso (absolute) 0.1 x10e3 /uL 0.0-0. 2 Not Available [facility] ([facility]) [address], [place], [address], 11/11/2023 08:26:16 11/10/19 24 11/11/2023 CBC WITH DIFFE RENTI AL/PL ATELE T immature granulocytes 0 % notest ab. Not Available [facility] ([facility]) [address], [place], [address], 11/11/2023 08:26:16 11/10/19 24 11/11/2023 CBC WITH DIFFE RENTI AL/PL ATELE T immature grans (abs) 0.0 x10e3 /uL 0.0-0. 1 Not Available [facility] ([facility]) [address] [place], [address], 11/11/2023 08:26:16 06/21/19 25 06/21/2024 ERICA+D NA/DS +ANTI CH+CE NTRO+ FA... speckled pattern 1:320 above high normal ICAP toddbhupendra hernández re: AC-2, 4,5,2 9 Not Available [facility] ([facility]) [address], [place], [address], 06/22/2024 13:11:58 06/21/1906/21/2024 ERICA+D NA/DS +ANTI CH+CE NTRO+ FA... note: [facility] ----- ----- --- ----- ----- ----- ----- ----- ----- ----- ----- ----- Homog eneou s Syste mathieu Lupus Eryth emato tyrone, Drug Induc ed Syste mathieu Lupus Eryth emato tyrone, Chron ic Autoi mmune hepat itis, Tristan ile Idiop athic Arthr itis ----- ----- --- ----- ----- ----- ----- ----- ----- ----- ----- ----- Speck led Sjogr en Syndr ome, Syste mathieu Lupus Eryth emato tyrone, Subac chilkoot Cutan eous Lupus , Neona tristian Lupus , Conge nital Heart Block , Mixed Conne ctive Tissu e Disea se, Scler oderm a-dif fuse, Scler oderm a-Aut oimmu ne Myosi tis Overl ap Syndr ome, Syste mathieu Lupus Eryth emato tyrone-S clero derma -Auto immun e Myosi tis Overl ap Syndr ome, Syste mathieu Autoi mmune Rheum atic Disea se, Undif jasmyn Gutierreze ctive Tissu e Disea se ----- ----- --- ----- ----- ----- ----- ----- ----- ----- ----- ----- Nucle olar Syste mathieu Scler osis, Scler oderm a-Aut oimmu ne Myosi tis Overl ap Syndr ome, Sjogr en Syndr ome, Rozina ud pheno amilcar , Pulmo nary Arter ial Hyper tensi on, Syste mathieu Autoi mmune Rheum atic Disea se, Cance r ----- ----- --- ----- ----- ----- ----- ----- ----- ----- ----- ----- Centr omere Scler oderm a-CRE ST, Limit ed Cutan eous SSc, Rozina ud's Pheno amilcar , Prima ry Bilia ry Chola ngiti s ----- ----- --- ----- ----- ----- ----- ----- ----- ----- ----- ----- Nucle ar Dot Prima ry Bilia ry Chola ngiti s ----- ----- --- ----- ----- ----- ----- ----- ----- ----- ----- ----- Nucle ar Prima ry Bilia ry Chola ngiti s, Autoi mmune Membr ane Hepat itis/ Liver disea se, Syste mathieu Autoi mmune Rheum atic Disea se, Autoi mmune Cytop enias , Linea r Scler oderm a, Antip hosph olipi d Syndr ome ----- ----- --- ----- ----- ----- ----- ----- ----- ----- ----- ----- Not Available [facility] ([facility]) [address], [place], [address], 06/22/2024 13:11:58 06/21/1906/21/2024 ERICA+D NA/DS +ANTI CH+CE NTRO+ FA... see below: Commen t Autoa ntibo dy Disea se Assoc iatio n Condi tion Frequ ency _ ____ ____ Antin uclea r Antib lucio, SLE, mixed conne ctive Direc t (MINDY- D) tissu e disea ses _ ____ ____ dsDNA SLE 40 - 60% _ ____ ____ Chrom atin Drug induc ed SLE 90% SLE 48 - 97% _ ____ ____ SSA (Ro) SLE 25 - 35% Sjogr en's Syndr ome 40 - 70% Neona tristian Lupus 100% _ ____ ____ SSB ([place]) SLE 10% Sjogr en's Syndr ome 30% _ ___ ____ Sm (anti -Salomon h) SLE 15 - 30% _ ___ ____ EVENING OR NIGHT NURSE SUPERVISOR Mixed Conne ctive Tissu e Disea se 95% (U1 nRNP, SLE 30 - 50% anti- ribon ucleo prote in) Polym yosit is and/o r [place] tomyo sitis 20% _ ____ ____ Scl-7 0 (anti DNA Scler oderm a (diff use) 20 - 35% topoi reji ase) Crest 13% _ ____ ____ Allyssa-1 Polym yosit is and/o r [place] tomyo sitis 20 - 40% _ ____ ____ Centr omere B Scler oderm a - Crest varia nt 80% _ ____ ____ Ribos omal P SLE 10 - 20% Not Available [facility] ([facility]) [address], [place], [address], 06/22/2024 13:11:58 06/21/19 25 06/22/2024 ERICA+D NA/DS +ANTI CH+CE NTRO+ FA... anti-DNA (ds) Ab qn 2 IU/mL 0-9 Negat tammy <5 Equiv ocal 5 - 9 Posit tammy >9 Not Available [facility] ([facility]) [address], [place], [address], 06/22/2024 13:11:58 06/21/19 25 06/22/2024 ERICA+D NA/DS +ANTI CH+CE NTRO+ FA... implementation manager antibodies 0.3 ai 0.0-0. 9 Not Available [facility] ([facility]) [address] [place], [address], 06/22/2024 13:11:58 06/21/19 25 06/22/2024 ERICA+D NA/DS +ANTI CH+CE NTRO+ FA... bowen antibodies <0.2 ai 0.0-0. 9 Not Available [facility] ([facility]) [address], [place], [address], 06/22/2024 13:11:58 06/21/19 25 06/22/2024 ERICA+D NA/DS +ANTI CH+CE NTRO+ FA... bowen/implementation manager antibodies <0.2 Not Available [facility] ([facility]) [address] [place], [address], 06/22/2024 13:11:58 06/21/19 25 06/22/2024 ERICA+D NA/DS +ANTI CH+CE NTRO+ FA... antisclerode rma-70 antibodies <0.2 Not Available [facility] ([facility]) [address] [place], [address], 06/22/2024 13:11:58 06/21/19 25 06/22/2024 ERICA+D NA/DS +ANTI CH+CE NTRO+ FA... sjogren's anti-ss-A <0.2 Not Available [facility] ([facility]) [address], [place], [address], 06/22/2024 13:11:58 06/21/19 25 06/22/2024 ERICA+D NA/DS +ANTI CH+CE NTRO+ FA... sjogren's anti-ss-B <0.2 Not Available [facility] ([facility]) [address], [place], [address], 06/22/2024 13:11:58 06/21/19 25 06/22/2024 ERICA+D NA/DS +ANTI CH+CE NTRO+ FA... antichromati n antibodies <0.2 Not Available [facility] ([facility]) [address], [place], [address], 06/22/2024 13:11:58 06/21/19 25 06/22/2024 ERICA+D NA/DS +ANTI CH+CE NTRO+ FA... antiribosoma l P antibodies <0.2 Not Available [facility] ([facility]) [address], [place], [address], 06/22/2024 13:11:58 06/21/19 25 06/22/2024 ERICA+D NA/DS +ANTI CH+CE NTRO+ FA... anti-allyssa-1 <0.2 Not Available [facility] ([facility]) [address], [place], [address], 06/22/2024 13:11:58 06/21/19 25 06/22/2024 ERICA+D NA/DS +ANTI CH+CE NTRO+ FA... anti-centrom ere B antibodies <0.2 Not Available [facility] ([facility]) [address], [place], [address], 06/22/2024 13:11:58 06/21/19 25 06/21/2024 MINDY W/REF DEYANIRA MINDY direct NEGATI VE negati ve Not Available [facility] ([facility]) [address] [place], [address], 06/22/2024 13:11:59 06/21/19 25 06/21/2024 T4, FREE T4,free(dire ct) 1.37 NG/dL 0.82-1 .77 Not Available [facility] ([facility]) [address] [place], [address], 06/22/2024 13:12:00 06/21/19 25 06/21/2024 COMP. METAB OLIC PANEL (14) glucose 126 mg/dL 70-99 above high normal Not Available [facility] ([facility]) [address] [place], [address], 06/22/2024 13:12:01 06/21/19 25 06/21/2024 COMP. METAB OLIC PANEL (14) BUN 21 mg/dL 8-27 Not Available [facility] ([facility]) [address] [place], [address], 06/22/2024 13:12:01 06/21/19 25 06/21/2024 COMP. METAB OLIC PANEL (14) creatinine 1.19 mg/dL 0.76-1 .27 Not Available [facility] ([facility]) [address] [place], [address], 06/22/2024 13:12:01 06/21/19 25 06/21/2024 COMP. METAB OLIC PANEL (14) eGFR 62 mL/mi n/1.7 3 >59 Not Available [facility] ([facility]) [address] [place], [address], 06/22/2024 13:12:01 06/21/19 25 06/21/2024 COMP. METAB OLIC PANEL (14) BUN/creatini ne ratio 18 10-24 Not Available [facility] ([facility]) [address] [place], [address], 06/22/2024 13:12:01 06/21/19 25 06/21/2024 COMP. METAB OLIC PANEL (14) sodium 140 mmol/ L 134-14 4 Not Available [facility] ([facility]) [address] [place], [address], 06/22/2024 13:12:01 06/21/19 25 06/21/2024 COMP. METAB OLIC PANEL (14) potassium 4.6 mmol/ L 3.5-5. 2 Not Available [facility] ([facility]) [address] [place], [address], 06/22/2024 13:12:01 06/21/19 25 06/21/2024 COMP. METAB OLIC PANEL (14) chloride 101 mmol/ L 96-106 Not Available [facility] ([facility]) [address], [place], [address], 06/22/2024 13:12:01 06/21/19 25 06/21/2024 COMP. METAB OLIC PANEL (14) carbon dioxide, total 22 mmol/ L 20-29 Not Available [facility] ([facility]) [address] [place], [address], 06/22/2024 13:12:01 06/21/19 25 06/21/2024 COMP. METAB OLIC PANEL (14) calcium 9.5 mg/dL 8.6-10 .2 Not Available [facility] ([facility]) [address] [place], [address], 06/22/2024 13:12:01 06/21/19 25 06/21/2024 COMP. METAB OLIC PANEL (14) protein, total 6.4 g/dL 6.0-8. 5 Not Available [facility] ([facility]) [address] [place], [address], 06/22/2024 13:12:01 06/21/19 25 06/21/2024 COMP. METAB OLIC PANEL (14) albumin 4.2 g/dL 3.8-4. 8 Not Available [facility] ([facility]) [address] [place], [address], 06/22/2024 13:12:01 06/21/19 25 06/21/2024 COMP. METAB OLIC PANEL (14) globulin, total 2.2 g/dL 1.5-4. 5 Not Available [facility] ([facility]) [address], [place], [address], 06/22/2024 13:12:01 06/21/19 25 06/21/2024 COMP. METAB OLIC PANEL (14) bilirubin, total 0.5 mg/dL 0.0-1. 2 Not Available [facility] ([facility]) [address] [place], [address], 06/22/2024 13:12:01 06/21/19 25 06/21/2024 COMP. METAB OLIC PANEL (14) alkaline phosphatase 59 IU/L 44-121 Not Available [facility] ([facility]) [address] [place], [address], 06/22/2024 13:12:01 06/21/19 25 06/21/2024 COMP. METAB OLIC PANEL (14) AST (SGOT) 22 IU/L 0-40 Not Available [facility] ([facility]) [address] [place], [address], 06/22/2024 13:12:01 06/21/19 25 06/21/2024 COMP. METAB OLIC PANEL (14) ALT (SGPT) 32 IU/L 0-44 Not Available [facility] ([facility]) [address] [place], [address], 06/22/2024 13:12:01 06/21/19 25 06/21/2024 MINDY, IFA RFX 11 ANETTE MULTI PLEX MINDY by ifa rfx titer/patter n POSITI VE abnormal Negat tammy <1:80 Borde rline 1:80 Posit tammy >1:80 Not Available [facility] ([facility]) [address], [place], [address], 06/22/2024 13:12:02 06/21/19 25 06/21/2024 VITAM IN B12 AND FOLAT E vitamin B12 445 pg/mL 232-12 45 Not Available [facility] ([facility]) [address], [place], [address], 06/22/2024 13:12:03 06/21/19 25 06/21/2024 VITAM IN B12 AND FOLAT E folate (folic acid), serum 6.3 NG/mL >3.0 A serum folat e derrick ntrat ion of less than 3.1 ng/mL is consi dered to repre sent clini abbie defic iency . Not Available [facility] ([facility]) [address], [place], [address], 06/22/2024 13:12:03 06/21/19 25 06/21/2024 HEMOG LOBIN A1C hemoglobin A1C 7.1 % 4.8-5. 6 above high normal Predi abete s: 5.7 - 6.4 Diabe pa: >6.4 Glyce mathieu contr ol for adult s with diabe pa: <7.0 Not Available [facility] ([facility]) [address], [place], [address], 06/22/2024 13:12:04 06/21/19 25 06/21/2024 TSH TSH 1.090 uIU/m L 0.450- 4.500 Not Available [facility] ([facility]) [address], [place], [address], 06/22/2024 13:12:05 06/21/19 25 06/21/2024 CBC WITH DIFFE RENTI AL/PL ATELE T WBC 7.6 x10e3 /uL 3.4-10 .8 Not Available [facility] ([facility]) [address], [place], [address], 06/22/2024 13:12:07 06/21/19 25 06/21/2024 CBC WITH DIFFE RENTI AL/PL ATELE T RBC 4.82 x10e6 /uL 4.14-5 .80 Not Available [facility] ([facility]) [address], [place], [address], 06/22/2024 13:12:07 06/21/19 25 06/21/2024 CBC WITH DIFFE RENTI AL/PL ATELE T hemoglobin 16.0 g/dL 13.0-1 7.7 Not Available [facility] ([facility]) [address], [place], [address], 06/22/2024 13:12:07 06/21/19 25 06/21/2024 CBC WITH DIFFE RENTI AL/PL ATELE T hematocrit 46.7 % 37.5-5 1.0 Not Available [facility] ([facility]) [address], [place], [address], 06/22/2024 13:12:07 06/21/19 25 06/21/2024 CBC WITH DIFFE RENTI AL/PL ATELE T MCV 97 fL 79-97 Not Available [facility] ([facility]) [address], [place], [address], 06/22/2024 13:12:07 06/21/19 25 06/21/2024 CBC WITH DIFFE RENTI AL/PL ATELE T MCH 33.2 pg 26.6-3 3.0 above high normal Not Available [facility] ([facility]) [address], [place], [address], 06/22/2024 13:12:07 06/21/19 25 06/21/2024 CBC WITH DIFFE RENTI AL/PL ATELE T MCHC 34.3 g/dL 31.5-3 5.7 Not Available [facility] ([facility]) [address], [place], [address], 06/22/2024 13:12:07 06/21/19 25 06/21/2024 CBC WITH DIFFE RENTI AL/PL ATELE T RDW 11.4 % 11.6-1 5.4 below low normal Not Available [facility] ([facility]) [address], [place], [address], 06/22/2024 13:12:07 06/21/19 25 06/21/2024 CBC WITH DIFFE RENTI AL/PL ATELE T platelets 304 x10e3 /uL 150-45 0 Not Available [facility] ([facility]) [address], [place], [address], 06/22/2024 13:12:07 06/21/19 25 06/21/2024 CBC WITH DIFFE RENTI AL/PL ATELE T neutrophils 69 % notest ab. Not Available [facility] ([facility]) [address], [place], [address], 06/22/2024 13:12:07 06/21/19 25 06/21/2024 CBC WITH DIFFE RENTI AL/PL ATELE T lymphs 17 % notest ab. Not Available [facility] ([facility]) [address], [place], [address], 06/22/2024 13:12:07 06/21/19 25 06/21/2024 CBC WITH DIFFE RENTI AL/PL ATELE T monocytes 10 % notest ab. Not Available [facility] ([facility]) [address], [place], [address], 06/22/2024 13:12:07 06/21/19 25 06/21/2024 CBC WITH DIFFE RENTI AL/PL ATELE T eos 3 % notest ab. Not Available [facility] ([facility]) [address], [place], [address], 06/22/2024 13:12:07 06/21/19 25 06/21/2024 CBC WITH DIFFE RENTI AL/PL ATELE T basos 1 % notest ab. Not Available [facility] ([facility]) [address], [place], [address], 06/22/2024 13:12:07 06/21/19 25 06/21/2024 CBC WITH DIFFE RENTI AL/PL ATELE T neutrophils (absolute) 5.2 x10e3 /uL 1.4-7. 0 Not Available [facility] ([facility]) [address], [place], [address], 06/22/2024 13:12:07 06/21/19 25 06/21/2024 CBC WITH DIFFE RENTI AL/PL ATELE T lymphs (absolute) 1.3 x10e3 /uL 0.7-3. 1 Not Available [facility] ([facility]) [address], [place], [address], 06/22/2024 13:12:07 06/21/19 25 06/21/2024 CBC WITH DIFFE RENTI AL/PL ATELE T monocytes(ab solute) 0.7 x10e3 /uL 0.1-0. 9 Not Available [facility] ([facility]) [address], [place], [address], 06/22/2024 13:12:07 06/21/19 25 06/21/2024 CBC WITH DIFFE RENTI AL/PL ATELE T eos (absolute) 0.2 x10e3 /uL 0.0-0. 4 Not Available [facility] ([facility]) [address], [place], [address], 06/22/2024 13:12:07 06/21/19 25 06/21/2024 CBC WITH DIFFE RENTI AL/PL ATELE T baso (absolute) 0.1 x10e3 /uL 0.0-0. 2 Not Available [facility] ([facility]) [address] [place], [address], 06/22/2024 13:12:07 06/21/19 25 06/21/2024 CBC WITH DIFFE RENTI AL/PL ATELE T immature granulocytes 0 % notest ab. Not Available [facility] ([facility]) [address], [place], [address], 06/22/2024 13:12:07 06/21/19 25 06/21/2024 CBC WITH DIFFE RENTI AL/PL ATELE T immature grans (abs) 0.0 x10e3 /uL 0.0-0. 1 Not Available [facility] ([facility]) [address], [place], [address], 06/22/2024 13:12:07 06/21/19 25 06/21/2024 TRIIO DOTHY LIV E (T3), FREE triiodothyro nine (T3), free 2.8 pg/mL 2.0-4. 4 Not Available [facility] ([facility]) [address] [place], [address], 06/22/2024 13:12:08 11/10/19 24 11/10/2023 XR, ankle No observ ation record ed. [facility] [address] [place], [address], 11/12/2023 15:01:54 01/15/20 24 01/15/2024 XR, knee, 3 view No observ ation record ed. [facility] [address] [place], [address], 01/29/2024 12:48:26 01/15/20 24 01/15/2024 XR, femur No observ ation record ed. [facility] [address] [place], [address], 01/29/2024 12:48:26 Result Notes None recorded. Problems Name Problem SNOMED Code Status Onset Date Resolution Date Notes Provider Name and Address Organization Details Recorded Time Essential hypertensio n 49864772 Active 2023 Pedro David MD Attn: Darwin morrison,[address], [place], [address], [place] - [facility] 4 14:52:14 Atrial fibrillatio n 59067946 Active 2023 Pedro David MD Attn: Simonebelem morrison,[address] [facility], [place], [address], [place] [facility] 4 14:57:26 Carotid artery stenosis 88200761 Active 2023 65% [facility] Pedro David MD Attn: Darwin prince,[address] [facility], [place], [address], [place] [facility] 4 14:57:57 History of malignant neoplasm of prostate 023591022 Active 2023 Dr. Rudy David MD Attn: Accountbelem morrison,[address] [facility], [place], [address], [place] [facility] 4 14:58:25 History of malignant neoplasm of colon 462795657 Active 2023 resected Pedro David MD Attn: Simonebelem morrison,[address] [facility], [place], [address], [place] [facility] 4 14:58:48 Hyperlipide tess 59234531 Active 2023 Pedro David MD Attn: Accountbelem g,[address] [facility], [place], [address], [place] [facility] 4 11:08:24 Ankle pain 894480706 Active 2023 Jarad Hernandez MA null, [place] - [facility] 4 14:43:23 Ankle pain 550761037 Active 2023 Jarad Hernandez [place] null, [place] - [facility] 4 14:49:22 Obesity 109655689 Active 2023 Jarad Hernandez MA null, [place] - [facility] 4 14:49:24 Anti-nuclea r factor detected 049161420 Active 2024 1:320 Pedro David MD Attn: Darwin morrison,[address] [facility], [place], [address], [facility] - [facility] 5 22:01:39 Problem Notes None recorded. Procedures Surgical History Date Name Laterality Status Provider Name and Address Organization Details Recorded Time endoscopic laser surgery on colon completed Rufus Sampson MA [place] - [facility] 06/05/2023 12:40:09 Imaging Results Imaging Date Name Status LastModified by Organiz ation Details LastModified Time 11/10/2023 XR, ankle completed [facility] [address] [place], [address], 11/12/2023 15:01:54 01/15/2024 XR, knee, 3 view completed [facility] [address] [place], [address], 01/29/2024 12:48:26 01/15/2024 XR, femur completed [facility] [address] [place], [address], 01/29/2024 12:48:26 Procedure Notes None recorded. Medical Equipment None Reported. Allergies No known drug allergies Medications Name Sig Start Date Stop Date Status Note LastModified by Organization Details LastModified Time metformin 500 mg tablet Take 1 tablet every day by oral route. 2024 active Not Available Not Available Not Avai lable atorvastati n 10 mg tablet Take 1 tablet every day by oral route. 01/14 completed Not Available Not Available Not Available meclizine 25 mg tablet TAKE 1 TABLET BY MOUTH EVERY DAY IN THE MORNING 06/04 completed Not Available Not Available Not Available hydrocodone 7.5 mg-acetamin ophen 325 mg tablet TAKE 1 TABLET BY MOUTH TWICE A DAY NEEDED FOR PAIN active Not Available Not Available No t Available flecainide 50 mg tablet One tablet twice a day active Not Available Not Available No t Available flecainide 100 mg tablet TAKE 1 TABLET BY MOUTH EVERY 12 HOURS 01/14 completed Not Available Not Available Not Available gabapentin 100 mg capsule TAKE 2 CAPSULES BY MOUTH AT BEDTIME active Not Available Not Available No t Available metoprolol succinate ER 25 mg tablet,exte nded release 24 hr TAKE 1 TABLET BY MOUTH EVERY DAY IN THE MORNING active Not Available Not Available No t Available lisinopril 10 mg-hydrochl orothiazide 12.5 mg tablet TAKE 1 TABLET EVERY DAY 2023 active Not Available Not Available Not Avai lable methylpredn isolone 4 mg tablets in a dose pack FOLLOW PACKAGE DIRECTION S 01/14 completed Not Available Not Available Not Available doxycycline hyclate 100 mg tablet TAKE 1 TABLET BY MOUTH TWICE DAILY FOR 7 DAYS 01/14 completed Not Available Not Available Not Available amoxicillin 875 mg-potassiu m clavulanate 125 mg tablet TAKE 1 TABLET BY MOUTH TWICE DAILY FOR 7 DAYS 06/04 completed Not Available Not Available Not Available Eliquis 5 mg tablet TAKE 1 TABLET BY MOUTH EVERY 12 HOURS active Not Available Not Available No t Available Vitals Date Recorded Body height Body mass index (BMI) Body weight Heart rate Oxygen saturation Oxygen saturation in Arterial blood by Pulse oximetry Systolic blood pressure Diastolic blood pressure Provider Name and Address Organization Details Last Updated DateTime 4 167.64 cm 32.9 kg/m2 56780.8 4 g 81 /min 97 % 97 % 126 mm[Hg] 80 mm[Hg] Kathy David [place] - [facility] 4 15:12:13 Date Recorded Body height Body mass index (BMI) Body weight Heart rate Oxygen saturation Oxygen saturation in Arterial blood by Pulse oximetry Systolic blood pressure Diastolic blood pressure Provider Name and Address Organization Details Last Updated DateTime 4 167.64 cm 32.9 kg/m2 43274.4 1 g 62 /min 97 % 97 % 114 mm[Hg] 68 mm[Hg] Pat Muller MA [place] - [facility] 4 13:58:04 Date Recorded Body height Body mass index (BMI) Body weight Heart rate Oxygen saturation Oxygen saturation in Arterial blood by Pulse oximetry Systolic blood pressure Diastolic blood pressure Provider Name and Address Organization Details Last Updated DateTime 4 167.64 cm 32.8 kg/m2 59299.2 5 g 62 /min 98 % 98 % 110 mm[Hg] 72 mm[Hg] Robyn Lozada MA [facility] 4 12:37:48 Date Recorded Body height Body mass index (BMI) Body weight Heart rate Oxygen saturation Oxygen saturation in Arterial blood by Pulse oximetry Systolic blood pressure Diastolic blood pressure Provider Name and Address Organization Details Last Updated DateTime 5 167.64 cm 33.4 kg/m2 47286.3 4 g 69 /min 96 % 96 % 128 mm[Hg] 68 mm[Hg] Rama Luna MA [facility] 5 15:12:52 Date Recorded Body height Body mass index (BMI) Body weight Heart rate Oxygen saturation Oxygen saturation in Arterial blood by Pulse oximetry Systolic blood pressure Diastolic blood pressure Provider Name and Address Organization Details Last Updated DateTime 5 167.64 cm 33.3 kg/m2 40404.4 7 g 66 /min 96 % 96 % 124 mm[Hg] 68 mm[Hg] Pat Muller MA [facility] 5 13:56:21 Social History Question Answer Notes LastModified by Organizat ion Details LastModified Time Tobacco Smoking Status Never Smoker Rufsu Sampson MA [facility] 06/05/2023 12:38:45 What Is Your Level Of Alcohol Consumption? None Information not available 06/05/2023 Are You Blind Or Do You Have Difficulty Seeing? No Information n ot available 06/05/2023 What Is Your Level Of Caffeine Consumption? Occasional Information not available 06/05/2023 In The 14 Days Before Symptom Onset, Have You Had Close Contact With A Laboratory-confirm ed COVID-19 While That Case Was Ill? No Information n ot available 01/15/2024 In The 14 Days Before Symptom Onset, Have You Had Close Contact With A Person Who Is Under Investigation For COVID-19 While That Person Was Ill? No Information not available 01/15/2024 Have You Been To An Area Known To Be High Risk For COVID-19? No Information not available 01/15/2024 Are You Currently Employed? No Information not available 01/15/2024 Are You Deaf Or Do You Have Serious Difficulty Hearing? Yes Information not available 06/05/2023 What Type Of Diet Are You Following? REGULAR Information n ot available 06/05/2023 Are There Any Guns Present In Your Home? No Information not available 06/05/2023 What Was The Date Of Your Most Recent Tobacco Screening? 07/21/2024 [email or web address] Information not available 07/21/2024 What Is Your Relationship Status? Information not available 06/05/2023 Do You Use Your Seat Belt Or Car Seat Routinely? Yes Information not available 06/05/2023 Do You Have Smoke And Carbon Monoxide Detectors In Your Home? Yes Information not available 06/05/2023 Do You Feel Stressed (tense, Restless, Nervous, Or Anxious, Or Unable To Sleep At Night)? [id number] Information not available 06/05/2023 Do You Use Any Illicit Or Recreational Drugs? No Information not available 06/05/2023 Do You Use Sunscreen Routinely? No Information not available 06/05/2023 Has Tobacco Cessation Counseling Been Provided? No Information not available 06/05/2023 Do You Or Have You Ever Used Any Other Forms Of Tobacco Or Nicotine? No Information not available 06/05/2023 Sex: Male Functional Status Question Answer Note LastModified by Organizat ion Details LastModified Time Are you able to care for yourself? Yes Information not available 06/05/2023 What is your exercise level? Occasional Information not available 06/05/2023 Mental Status None recorded. Family History Relationship Description Onset Age of this Age Resolved Age Notes LastModified by Organization Details LastModified Time Father Diabetes mellitus bandersonma Not available 04/2023 12:38:07 Father Myocardial infarction bandersonma Not available 04/2023 12:38:19 Medical History Condition Response Coronary Artery Disease Y Other N Atrial Fibrillation Y High Blood Pressure Y Kidney or Bladder Problems N Thyroid Problems N GI Problems N Depression N COPD N Blood Clots N Skin Problems N Anemia N Heart Attack (ME) N Anxiety Disorder N Diabetes N Muscle, Joint, or Bone Problems Y Seizures/Epilepsy N Acid Reflux (GERD) N Cancer Y Stroke N Asthma N Allergies N High Cholesterol Y Hepatitis N Liver Disease N Headaches N Heart Failure N Osteoporosis N Immunizations Vaccine Type Date Status Note Provider Nam e and Address Organization Details Recorded Time Influenza, adjuvanted, trivalent, PF 02/11/2017 completed Rama Luna [place] null, [place] [facility] 06/09/2024 15:09:07 Influenza, adjuvanted, quadrivalent, PF 01/09/2023 completed Rama [place] [facility] 06/09/2024 15:09:07 Influenza, adjuvanted, quadrivalent, PF 01/29/2022 vee [place] [facility] 06/09/2024 15:09:07 COVID-19, mRNA, LNP-S, PF, 30 mcg/0.3 mL dose 06/03/2020 completed GABRIELA [place] [facility] 06/09/2024 15:09:07 COVID-19, mRNA, LNP-S, PF, 30 mcg/0.3 mL dose 06/24/2020 completed Rama [place] [facility] 06/09/2024 15:09:07 COVID-19, mRNA, LNP-S, PF, 30 mcg/0.3 mL dose 01/04/2021 completed Rama [place] [facility] 06/09/2024 15:09:07 COVID-19, mRNA, LNP-S, bivalent, PF, 50 mcg/0.5 mL or 25mcg/0.25 mL dose 02/19/2022 completed Rama [place] [facility] 06/09/2024 15:09:07 COVID-19, mRNA, LNP-S, PF, desmond-sucrose, 30 mcg/0.3 mL 01/09/2023 vee uLna [place] [facility] 06/09/2024 15:09:07 influenza, unspecified formulation 02/05/2016 vee [place] [facility] 06/09/2024 15:09:07 Influenza, high-dose, trivalent, PF 01/30/2020 completed Rama Luna [place] null, [place] - [facility] 06/09/2024 15:09:07 Influenza, high-dose, trivalent, PF 02/14/2018 completed Rama [place] [facility] 06/09/2024 15:09:07 Influenza, high-dose, trivalent, PF 02/17/2019 completed GABRIELA Barreto[place] [facility] 06/09/2024 15:09:07 Past Encounters Encounter ID Performer Location Encounter Start Date Encounter Closed Date Diagnosis/Indication Diagnosis SNOMED-CT Code Diagnosis ICD10 Code Diagnosis Note [id number] Pedro David MD [facility] (Adult Med) [address] [place] [address] [phone] 06/05/2023 12:10:44 06/05/2023 12:59:47 Essential hypertension 19276099 I10 Atrial fibrillation 4943 6004 I48.91 Benign par oxysmal positional vertigo 707508671 H81.13 History of malignant neoplasm of prostate 617716789 Z85.46 History of malignant neoplasm of colon 650741873 Z85.039 [id number] Pedro David MD [place] [id number] [facility] [address] [place] [address] [id number] 1 07/16/2023 09:58:34 07/16/2023 11:14:37 Essential hypertension 32445488 I10 Atrial fibrillation 4943 6004 I48.91 Hyperlipidemia 28281548 E78.5 Ordered per written permission from Dr. David [id number] MD [facility] (Adult Med) [address] [place] [address] [id number] 0 08/21/2023 15:03:52 08/21/2023 15:55:39 Essential hypertension 10896600 I10 Carotid ar ailyn stenosis 82543912 I65.29 Hyperlipidemia 22553480 E78.5 Ordered per written permission from Dr. David [id number] MD [facility] (Adult Med) [address] [place] [address] [id number] 0 11/10/2023 13:49:41 11/10/2023 15:21:44 Obesity 542523305 E66.8 Essential hypertension 80921760 I10 Ankle pain 526061883 M25 .579 Atrial fibrillation 4943 6004 I48.91 Hyperlipidemia 90732444 E78.5 Ordered per written permission from Dr. Davdi [id number] Pedro David MD [facility] ([facility]) [address] [place] [address] [phone] 0 01/15/2024 12:16:01 01/15/2024 13:45:39 Obesity 098177658 E66.9 Pain of ri ght knee joint 9227608456 83449 M25.561 Pain in ri ght lower limb 513397721 M79.627 [id number] Pedro David MD [facility] [address] [place] [address] [id number] 1 06/09/2024 14:59:20 06/09/2024 16:15:10 Body mass index 30+ - obesity 939903504 Z68.33 Obesity 051324525 E66.9 Pain in bi lateral legs 4350679236 6696433 M79.605 Paresthesia 66183065 R20 .2 [id number] Pedro David MD [facility] [address] [place] [address] [id number] 1 07/21/2024 13:47:22 07/21/2024 14:12:29 Obesity caused by energy imbalance 969587097 E66.811 E66.09 Z68.33 Obesity 118794939 E66.9 Type 2 tiffanie betes mellitus 23905401 E11.9 Anti-nucle ar factor detected 473784267 R76.8 Health Concerns Section Related Observation LastModified by Organization Detai ls LastModified Time None Recorded Concern Status LastModified by Organization Details LastModified Time None Recorded Advance Directives Directive None Recorded Payers Encounter Date Sequence Insurance Name Policy Number Policy Goldsmith Covered Member ID Goldsmith Member ID Guarantor Name 08/21/2023 1 [place] Shawn Barreto [id number] Shawn Barreto 08/21/2023 2 [employer] (MEDICARE SUPPLEMENT) Shawn Barreto [id number] Shawn Barreto 11/10/2023 1 [place] Shawn E Barreto [id number] Shawn Barreto 11/10/2023 2 [employer] (MEDICARE SUPPLEMENT) Shawn Barreto [id number] Shawn Barreto 01/15/2024 1 [place] Shawn E Barreto [id number] Shawn Barreto 01/15/2024 2 [employer] (MEDICARE SUPPLEMENT) Shawn Barreto [id number] Shawn Barreto 06/09/2024 1 [place] Shawn E Barreto [id number] Shawn Barreto 06/09/2024 2 [place] [id number] Shawn E Barreto [id number] Shawn Barreto 07/21/2024 1 [place] Shawn E Barreto [id number] Shawn Barreto 07/21/2024 2 [place] [id number] Shawn E Barreto [id number] Shawn Barreto Notes Date Note Type Note Provider Name and Address Organization Details Recorded Time 08/21/2023 text/html Follow-up of med ical problems hypertension no chest pain or shortness of breath carotid stenosis keep an eye on that no stroke symptoms hyperlipidemia does try to follow a low-fat diet Pedro David MD Attn: [address] [place], [address], [place] [facility] 09/27/2023 21:51:24 11/10/2023 text/html hypertension no headache or dizziness. He has got atraumatic right ankle pain for about a week says it feels like it did when he had gout. Hyperlipidemia does try to follow a low-fat diet atrial fibrillation no palpitations or dizziness Pedro David MD Attn: [address] [place], [address], [place] [facility] 11/28/2023 20:25:02 01/15/2024 text/html Severe pain in t he right leg for a couple of weeks. He did have COVID a couple of weeks ago. There has no swelling there has no numbness or tingling worse with weight-bearing no fever chills no trauma. Similar episode about a year ago that responded to physical therapy but it took some time the pain is 7/10 [id number] medicines really do not help that much Pedro David MD Attn: [address] [facility], [place], [address], [facility] - [facility] 01/15/2024 16:21:09 06/09/2024 text/html he is here today because of leg pain numbness hurts at night walks okay going on for several months Pedro David MD Attn: [address] [facility], [place], [address], [place] [facility] 06/10/2024 07:24:38 07/21/2024 text/html Blood work shows MINDY 1-320 dilution gabapentin helping his legs quite a bit has not had the nerve conduction test yet Pedro David MD Attn: [address] [place], [address], [place] [facility] 07/23/2024 22:01:57
--- OUTSIDE RECORDS SUMMARY | 2024-07-26 10:25 | XMS_ITS | Clinical Summary ---
Author Organization [facility] Healthcare Address [address] [place] [address] Care Team Providers Care Coiler Name Role Phone Jame David MD Primary Care Provider [phone] Carlos Lange MD Unavailable [phone] Allergies Active Allergy Reactions Criticality Noted Date Comments Adhesive Rash Medium Iodinated Contrast Media Hives,Rash Medium 03/16/2019 Iodine Rash Medium 03/14/2019 Medications acetaminophen 500 mg capsule Take 2 capsules (1,000 mg total) by mouth nightly as needed Active atorvastatin (LIPITOR) 10 mg tablet TK 1 T PO QD 07/21/19 20 Active lisinopril-hydro CHLOROthiazide (ZESTORETIC) 10-12.5 mg per tablet Take 1 tablet by mouth daily Active Eliquis 5 mg tabletIndication s:atrial fibrillation Take 1 tablet (5 mg total) by mouth every 12 (twelve) hours 180 tablet 3 03/07/20 24 Active metoprolol XL (TOPROL-XL) 25 mg extended release tabletIndication s:Atrial fibrillation, unspecified type (HCC) TAKE 1 TABLET EVERY MORNING 90 tablet 3 04/18/19 25 Active flecainide (TAMBOCOR) 50 mg tablet TAKE 1 TABLET TWICE DAILY 180 tablet 3 07/06/19 25 Active flecainide (TAMBOCOR) 50 mg tabletIndication s:Paroxysmal Atrial Fibrillation Take 1 tablet (50 mg total) by mouth 2 (two) times a day 180 tablet 3 08/20/19 24 025 Discontinued Active Problems Problem Noted Date Diagnosed Date Paroxysmal atrial fibrillation 02/17/2024 History of colon cancer 12/15/2017 Malignant neoplasm of sigmoid colon 11/26/2016 Surgical History Surgery Date Site/Laterality Comments COLON SURGERY 01/21/2017 Laparoscopic assisted low anterior resection. 2. Rigid proctoscopy. 3. Laparoscopic resection of gastric GIST. Please see Dr. Kathryn Ruiz's operative note for details. COLONOSCOPY W/ POLYPECTOMY Medical History Medical History Date Comments Colon polyp Colon cancer (HCC) Weakness Fatigue History of colon cancer 12/15/2017 Elevated PSA Family History Medical History Relation Name Comments Colonic polyp Brother 1 Family history of colonic polyps - (Added by TW Conv) Cancer Brother 2 Family history of malignant neoplasm - (Added by TW Conv) Heart attack Father 64 Heart attack Mother 75 Colonic polyp Sister Family history of colonic polyps - (Added by TW Conv) Relation Name Status Comments Brother 1 Brother 2 Father 64 Mother 75 Sister Social History Tobacco Use Types Packs/Day Years Used Date Smoking Tobacco: Former Cigarettes Q uit: 2006 Smokeless Tobacco: Never Tobacco Cessation:Counseling Given: Not Answered Alcohol Use Standard Drinks/Week Comments No 0 (1 standard drink = 0.6 oz pur e alcohol) Sex and Gender Information Value Date Recorded Sex Assigned at Not on file Legal Sex Male 7:06 PM [employer]ER Gender Identity Not on file Sexual Orientation Not on file Obstetrics History Last Filed Vital Signs Vital Sign Reading Time Taken Comments Blood Pressure 120/72 02/17/2024 12:49 PM [employer] AS[employer]ER Pulse 68 02/17/2024 12:49 PM [employer]LECT[employer] ASSEMBLER Temperature 36.7 C (98.1 F) 01/10/2020 8:14 AM CDT Respiratory Rate 24 12/27/2018 11:25 AM CDT Oxygen Saturation 97% 08/20/2023 9:12 AM CDT Inhaled Oxygen Concentration - - Weight 93 kg (205 lb) 02/17/2024 12:49 PM [employer]LECT[employer] ASSEMBLER Height 167.6 cm (5' 6 ) 02/17/2024 12:49 PM [employer]LECT[employer] ASSEMBLER Body Mass Index 33.09 02/17/2024 12:49 PM [employer]LECT[employer] ASSEMBLER Plan of Treatment Health Maintenance Due Date Last Done Comments Depression Screening 1945 Fall Risk Assessment 1945 Hepatitis C Screening 1945 DTaP/Tdap/Td Vaccine (1 - Tdap) 1956 Hepatitis B Screening 06/19/1963 Pneumococcal vaccine 65+ (1 of 1 - PCV) 06/19/1995 Zoster Vaccine (1 of 2) 06/19/1995 Well Visit 65+ 2010 Influenza Vaccine (Season Ended) 2024 01/30/2020, 02/17/2019, 02/14/2018, Additional history exists Abdominal Aortic Aneurysm (A AA) Screen Completed 03/18/2019, 12/15/2017 Procedures Procedure Name Priority Date/Time Associated Diagnosis Comments CT CHEST ABDOMEN PELVIS W CONTRAST Schedule Routine, Read Routine (OP Routine) 03/18/2019 2:02 PM [employer]ER Malignant neoplasm of sigmoid colon (HCC) from Last 3 Months or Most Recently Relevant to Health Maintenance Results * CT Chest Abdomen Pelvis W Contrast (03/18/2019 2:02 PM ELECTR[employer] ASSEMBLER) Anatomical Region Laterality Modality Body N/A Computed Tomogra phy 03/18/2019 2:38 PM ELECTRICAL [employer]OL ASSEMBLER Impressions 03/18/2019 3:17 PM [employer]LECT[employer]ICAL [employer] ASSEMBLER 1. No evidence of metastatic disease in the chest, abdomen, and pelvis. 2. Hepatic segment 6 hemangioma. Dictated by: Andrea Pitt M.D. The radiology attending physician has personally reviewed this study, and had reviewed and/or edited this written report and agrees with it. Electronically signed by: Sacha Melissa M.D. Narrative 03/18/2019 3:17 PM [employer]LECT[employer] ASSEMBLER EXAMINATION: Computed tomography of the chest, abdomen and pelvis with intravenous contrast HISTORY: Colon cancer. Evaluate for metastases. TECHNIQUE: Transaxial computed tomographic images of the chest, abdomen and pelvis were obtained with intravenous contrast according to the standard protocol after the uneventful administration of 100 mL Opti-Ray 350 intravenous contrast. COMPARISON: 12/15/2017 FINDINGS: Chest: Lungs are clear. No focal consolidation, pleural effusion, or pneumothorax. Thyroid is normal. No supraclavicular, mediastinal, hilar, or axillary lymphadenopathy. Heart size normal. No pericardial effusion. Aorta is normal size and contour. Three-vessel arch is seen. There is severe left coronary artery disease. No central pulmonary embolism. The airways are patent. Abdomen/Pelvis: Liver is normal size and contour. There is a lesion in hepatic segment 6 with nodular focus of contrast likely representing hemangioma. Previously seen hepatic segment 2 hemangioma not seen on this exam. No biliary dilatation. The portal and superior mesenteric veins are patent. The pancreas is replaced with fat. The spleen, adrenal glands, are normal. The kidneys enhance symmetrically. No lesion. No nephrolithiasis or hydronephrosis. Urinary bladder. The prostate is slightly enlarged calcifications. There are postsurgical changes of sigmoid resection. The bowel is normal caliber. Appendix is visualized and normal. No free fluid or free gas. No mesenteric, retroperitoneal, or pelvic lymphadenopathy. Aorta has moderate atherosclerosis. Infrarenal aortic ectasia is seen. The visceral arteries are patent. The hepatic arterial anatomy is conventional. Visceral arteries are patent. No fracture or suspicious osseous lesion. Procedure Note Sacha Melissa MD - 03/18/2019 EXAMINATION: Computed tomography of the chest, abdomen and pelvis with intravenous contrast HISTORY: Colon cancer. Evaluate for metastases. TECHNIQUE: Transaxial computed tomographic images of the chest, abdomen and pelvis were obtained with intravenous contrast according to the standard protocol after the uneventful administration of 100 mL Opti-Ray 350 intravenous contrast. COMPARISON: 12/15/2017 FINDINGS: Chest: Lungs are clear. No focal consolidation, pleural effusion, or pneumothorax. Thyroid is normal. No supraclavicular, mediastinal, hilar, or axillary lymphadenopathy. Heart size normal. No pericardial effusion. Aorta is normal size and contour. Three-vessel arch is seen. There is severe left coronary artery disease. No central pulmonary embolism. The airways are patent. Abdomen/Pelvis: Liver is normal size and contour. There is a lesion in hepatic segment 6 with nodular focus of contrast likely representing hemangioma. Previously seen hepatic segment 2 hemangioma not seen on this exam. No biliary dilatation. The portal and superior mesenteric veins are patent. The pancreas is replaced with fat. The spleen, adrenal glands, are normal. The kidneys enhance symmetrically. No lesion. No nephrolithiasis or hydronephrosis. Urinary bladder. The prostate is slightly enlarged calcifications. There are postsurgical changes of sigmoid resection. The bowel is normal caliber. Appendix is visualized and normal. No free fluid or free gas. No mesenteric, retroperitoneal, or pelvic lymphadenopathy. Aorta has moderate atherosclerosis. Infrarenal aortic ectasia is seen. The visceral arteries are patent. The hepatic arterial anatomy is conventional. Visceral arteries are patent. No fracture or suspicious osseous lesion. IMPRESSION: 1. No evidence of metastatic disease in the chest, abdomen, and pelvis. 2. Hepatic segment 6 hemangioma. Dictated by: Andrea Pitt M.D. The radiology attending physician has personally reviewed this study, and had reviewed and/or edited this written report and agrees with it. Electronically signed by: Sacha Melissa M.D. Dangelo De La oTrre MD IMG CT PROCEDURES Final Resu lt from Last 3 Months or Most Recently Relevant to Health Maintenance Insurance [place] [address] MEDICARE MEDICARE [employer] [facility] Care Teams Coiler Relationship Specialty Start Date End Date Jame David MD PCP - General 11/25/16 Carlos Lange MD Consulting Physician Gastroenterology 09/18/17
--- OUTSIDE RECORDS SUMMARY | 2024-07-26 10:25 | XMS_ITS | Clinical Summary ---
Author Organization [facility] Address [address] [place] [address] Care Team Providers Care Doctor Assistant Name Role Phone Selvin Gastelum MD Primary Care Provider [phone] Source Comments [facility],non-owned Affiliates and Associated Physician Practices is amultiple site organization consisting of ambulatory clinics and hospital sitesin [place], [place], [place] and [place]. This disclosure is being madepursuant to the Care Everywhere program and may not contain all information available regarding this patient. Last updated 17.[facility] Allergies No known active allergies Medications * Be aware that medications may not be up to date on this document. Alwaysverify current medications with the patient. predniSONE (DELTASONE) 20 MG tabletIndication s:Contact dermatitis, unspecified contact dermatitis type, unspecified trigger 3 tabs PO daily for 5 days, 2 tabs PO daily for 5 days, 1 tab PO daily for 5 days than stop for rash 30 tablet 8 Active triamcinolone acetonide (KENALOG) 0.1 % creamIndications :Contact dermatitis, unspecified contact dermatitis type, unspecified trigger Apply to affected area 2 times daily 453.6 g 8 Active Social History Tobacco Use Types Packs/Day Years Used Date Smoking Tobacco: Former Cigarettes Q uit: 2003 Smokeless Tobacco: Never Sex and Gender Information Value Date Recorded Sex Assigned at Not on file Legal Sex Male 11:02 AM CDT Gender Identity Not on file Sexual Orientation Not on file Last Filed Vital Signs Vital Sign Reading Time Taken Comments Blood Pressure 138/80 12/18/2017 9:31 AM CDT Pulse 82 12/18/2017 9:31 AM CDT Temperature 36.7 C (98.1 F) 12/18/2017 9:31 AM CDT Respiratory Rate 16 12/18/2017 9:31 AM CDT Oxygen Saturation 97% 12/18/2017 9:31 AM CDT Inhaled Oxygen Concentration - - Weight 86.2 kg (190 lb) 12/18/2017 9:31 AM CDT Height 167.6 cm (5' 6 ) 12/18/2017 9:31 AM CDT Body Mass Index 30.67 12/18/2017 9:31 AM CDT Plan of Treatment Health Maintenance Due Date Last Done Comments DTAP/TDAP/TD VACCINES (1 - Tdap) 1964 PNEUMOCOCCAL VACCINE 50+ (1 of 1 - PCV) 06/19/1995 ZOSTER VACCINE (1 of 2) 06/19/1995 Respiratory Syncytial Virus (RSV) Vaccine Pt: or over 60 yrs (1 - 1-dose 75+ series) 2020 COVID-19 VACCINE ( - 2023-2 5 season) 2023 DEPRESSION SCREENING 04/06/2024 INFLUENZA VACCINE (Season Ended) 2024 HEPATITIS B VACCINE Aged Out No longe r eligible based on patient's age to complete this topic HIB VACCINE Aged Out No longer eligi ble based on patient's age to complete this topic HPV VACCINE Aged Out No longer eligi ble based on patient's age to complete this topic MENINGOCOCCAL (Group B) VACC INE SHARED DECISION-MAKING Aged Out No longer eligibl e based on patient's age to complete this topic MENINGOCOCCAL GROUPS A/C/Y/W VACCINE Aged Out No longer eligible b ased on patient's age to complete this topic Insurance MEDICARE [facility] MEDICARE MEDICARE Care Teams Doctor Assistant Relationship Specialty Start Date End Date Selvin Gastelum MD [address] [place] [address] PCP - General 03/18/19
--- OUTSIDE RECORDS SUMMARY | 2024-07-26 10:25 | XMS_ITS ---
Author Organization [facility] Healthcare Address [address] [place] [address] Care Team Providers Care Tuck Pointer Name Role Phone Jame David MD Primary Care Provider [phone] Carlos Lange MD Unavailable [phone] Active Problems Problem Noted Date Diagnosed Date Paroxysmal atrial fibrillation 02/17/2024 History of colon cancer 12/15/2017 Malignant neoplasm of sigmoid colon 11/26/2016 Current Treatment and Therapy Plans No current plan information found. Past Treatment and Therapy Plans No past plan information found. Lifetime Dose Tracking * Chemical Lifetime Dose Automatic Entry Manual Entr y DLP 1,573 mGycm 1,573 mGycm 0 mGycm
--- OUTSIDE RECORDS SUMMARY | 2024-07-26 10:25 | XMS_ITS | Referral Summary ---
Author Organization [facility] Healthcare Address [address] [place] [address] Care Team Providers Care Operating Room Technician Name Role Phone Jame David MD Primary Care Provider [phone] Carlos Lange MD Unavailable [phone] Allergies Active Allergy Reactions Criticality Noted Date [...] 12/15/2017 Malignant neoplasm of sigmoid colon 11/26/2016 Social History Tobacco Use Types Packs/Day Years Used Date Smoking Tobacco: Former Cigarettes Q uit: 2006 Smokeless Tobacco: Never Tobacco Cessation:Counseling Given: Not Answered Alcohol Use Standard Drinks/Week Comments No 0 (1 standard drink = 0.6 oz pur e alcohol) Sex and Gender Information Value Date Recorded Sex Assigned at Not on file Legal Sex Male 7:[address] Gender Identity Not on file Sexual Orientation Not on file Last Filed Vital Signs Vital Sign Reading Time Taken Comments Blood Pressure 120/72 02/17/2024 12:[address] Pulse 68 02/17/2024 12:[address] Temperature 36.7 C (98.1 F) 01/10/2020 8:14 AM CDT Respiratory Rate 24 12/27/2018 11:25 AM CDT Oxygen Saturation 97% 08/20/2023 9:12 AM CDT Inhaled Oxygen Concentration - - Weight 93 kg (205 lb) 02/17/2024 12:[address] Height 167.6 cm (5' 6 ) 02/17/2024 12:[address] Body Mass Index 33.09 02/17/2024 12:[address] Plan of Treatment Not on file Procedures Procedure Name Priority Date/Time Associated Diagnosis Comments CT CHEST ABDOMEN PELVIS W CONTRAST Schedule Routine, Read Routine (OP Routine) 03/18/2019 2:[address] Malignant neoplasm of sigmoid colon (HCC) from Last 3 Months or Most Recently Relevant to Health Maintenance Results * CT Chest Abdomen Pelvis W Contrast (03/18/2019 2:[address]) Anatomical Region Laterality Modality Body N/A Computed Tomogra phy 03/18/2019 2:[address] Impressions 03/18/2019 3:[address] 1. No evidence of metastatic disease in the chest, abdomen, and pelvis. 2. Hepatic segment 6 hemangioma. Dictated by: Andrea Pitt M.D. The radiology attending physician has personally reviewed this study, and had reviewed and/or edited this written report and agrees with it. Electronically signed by: Sacha Melissa M.D. Narrative 03/18/2019 3:[address] EXAMINATION: Computed tomography of the chest, abdomen [...] by: Sacha Melissa M.D. Dangelo De La Torre MD IMG CT PROCEDURES Final Resu lt from Last 3 Months or Most Recently Relevant to Health Maintenance Insurance MEDICARE [facility] MEDICARE MEDICARE [place] [facility] Care Teams Operating Room Technician Relationship Specialty Start Date End Date Jame David MD PCP - General 11/25/16 Carlos Lange MD Consulting Physician Gastroenterology 09/18/17
--- OUTSIDE RECORDS SUMMARY | 2024-07-26 10:26 | XMS_ITS | Data Portability ---
Author Organization [place] - [facility] [employer], Main Office Address [address] [place] [address] Care Team Providers Care Multimedia Author Name Role Phone PEDRO DAVID Primary Care Provider PEDRO DAVID Referring Provider Assessment Encounter Date Assessment Date Assessment LastModified by Organization Details LastModified Time 08/14/2022 08/14/2022 Continue antihypertensive Continue walking program Continue cholesterol medicine Physical therapy is needed Follow-up with urology Diagnosis in assessment plan have been discussed in detail See me in 6 months Not available 08/14/2022 11:10:08 02/05/2023 02/05/2023 Will continue current therapy and follow up in 6 months when he gets back from [place] Not available 02/14/2023 15:46:01 Plan of Treatment Reminders Order Date Submit Date Provider Last Modified By Organization Details Last Modified Time Details Appointments None recorded . Lab CMP, serum or plasma 023 08/15/19 [facility] (Lab), [address] [place], [address], 3 12:59:18 lipid panel, serum 023 08/15/19 [facility] (Lab), [address] [place], [address], 3 12:59:23 Referral None recorded . Procedures None recorded . Surgeries None recorded . Imaging None recorded . Medication Orders None recorded . Patient TargetsNo targets recorded. Patient InstructionsNo instructions recorded. Reason for Referral None Reported. Results Created Date Observation Date Name Description Value Unit Range Abnormal Flag Note LastModifiedBy Organization Detail LastModifiedTime 08/15/19 23 08/14/2022 COMPR EHENS MARIAJOSE METAB OLIC PANEL sodium 138 mmol/ L 137-14 5 Not Available [facility] (Lab) [address] [place], [address], 08/14/2022 12:59:17 08/15/19 23 08/14/2022 COMPR EHENS MARIAJOSE METAB OLIC PANEL potassium 4.6 mmol/ L 3.5-5. 1 Not Available [facility] (Lab) [address] [place], [address], 08/14/2022 12:59:17 08/15/19 23 08/14/2022 COMPR EHENS MARIAJOSE METAB OLIC PANEL chloride 106 mmol/ L 98-107 Not Available [facility] (Lab) [address] [place], [address], 08/14/2022 12:59:17 08/15/19 23 08/14/2022 COMPR EHENS MARIAJOSE METAB OLIC PANEL carbon dioxide 26 mmol/ L 22-30 Not Available [facility] (Lab) [address] [place], [address], 08/14/2022 12:59:17 08/15/19 23 08/14/2022 COMPR EHENS MARIAJOSE METAB OLIC PANEL anion gap 10.6 mmol/ L 14-22 low Not Available [facility] (Lab) [address] [place], [address], 08/14/2022 12:59:17 08/15/19 23 08/14/2022 COMPR EHENS MARIAJOSE METAB OLIC PANEL glucose 121 mg/dL 70-99 high Not Available [facility] (Lab) [address] [place], [address], 08/14/2022 12:59:17 08/15/19 23 08/14/2022 COMPR EHENS MARIAJOSE METAB OLIC PANEL BUN 16 mg/dL 8-19 Not Available [facility] (Lab) [address] [place], [address], 08/14/2022 12:59:17 08/15/1908/14/2022 COMPR EHENS MARIAJOSE METAB OLIC PANEL creatinine 0.96 mg/dL 0.66-1 .25 Not Available [facility] (Lab) [address] [place], [address], 08/14/2022 12:59:17 08/15/19 23 08/14/2022 COMPR EHENS MARIAJOSE METAB OLIC PANEL GFR >60 Refer ence Range : Pierz ge GFR Healt hy Adult : >60 mL/mi n/1.7 3 m2 Chron ic Kidne y Disea se: 15-60 mL/mi n/1.7 3 m2 Kidne y Failu re: <15/m L/min /1.73 m2 www.n iddk. nih.g ov The MDRD study equat ion has not been valid ated in child lazaro <18 years of age; pregn ant women ; the elder ly >85 years of age; or in some racia l or ethni c subgr oups, such as Hismt nics. Outsi de the valid ated jeb eters , estim ated GFR is less accur ate, requi ring clini abbie judgm ent on a case- by-ca se basis . Clini abbie inter preta tion for other races and ages must be made by the clini anastacio. The MDRD study equat ion has not been valid ated for the evalu ation of serum creat inine relat ed to nutri pearl l statu s or medic ation usage . For perso ns <18 years of age, a pedia tric GFR calcu lator is avail able on the NKF websi te: https ://tariq lay.carlos a jones/pr ofess ional s/kdo qi/gf r_cal culat or Not Available [facility] (Lab) [address] [place], [address], 08/14/2022 12:59:17 08/15/1908/14/2022 COMPR EHENS MARIAJOSE METAB OLIC PANEL alkaline phosphatase 40 U/L 38-126 Not Available [facility] (Lab) [address] [facility] [facility] [place] [place], [address], 08/14/2022 12:59:17 08/15/19 23 08/14/2022 COMPR EHENS MARIAJOSE METAB OLIC PANEL alanine aminotransfe rase 26 U/L 0-50 Not Available [facility] (Lab) [address] [place], [address], 08/14/2022 12:59:17 08/15/19 23 08/14/2022 COMPR EHENS MARIAJOSE METAB OLIC PANEL aspartate aminotransfe rase 30 U/L 15-46 Not Available [facility] (Lab) [address] [place], [address], 08/14/2022 12:59:17 08/15/19 23 08/14/2022 COMPR EHENS MARIAJOSE METAB OLIC PANEL bilirubin, total 0.90 mg/dL 0.20-1 .30 Not Available [facility] (Lab) [address] [place], [address], 08/14/2022 12:59:17 08/15/19 23 08/14/2022 COMPR EHENS MARIAJOSE METAB OLIC PANEL calcium 8.9 mg/dL 8.4-10 .2 Not Available [facility] (Lab) [address] [place], [address], 08/14/2022 12:59:17 08/15/19 23 08/14/2022 COMPR EHENS MARIAJOSE METAB OLIC PANEL total protein 6.5 g/dL 6.3-8. 2 Not Available [facility] (Lab) [address] [place], [address], 08/14/2022 12:59:17 08/15/19 23 08/14/2022 COMPR EHENS MARIAJOSE METAB OLIC PANEL albumin 4.0 g/dL 3.0-4. 4 Not Available [facility] (Lab) [address] [place], [address], 08/14/2022 12:59:17 08/15/19 23 08/14/2022 COMPR EHENS MARIAJOSE METAB OLIC PANEL globulin 2.5 g/dL 2.6-4. 2 low Not Available [facility] (Lab) [address] [place], [address], 08/14/2022 12:59:17 08/15/19 23 08/14/2022 COMPR EHENS MARIAJOSE METAB OLIC PANEL A/G ratio 1.6 ratio 1.0-2. 0 Not Available [facility] (Lab) [address] [place], [address], 08/14/2022 12:59:17 08/15/19 23 08/14/2022 LIPID PANEL cholesterol 184 mg/dL 140-19 9 NIH SHANIQUE NSUS RECOM MENDA TION FOR ALISON STERO L: ADULT CHILD LOW RISK: <200 <170 BORDE RLINE : <200- 239 ----- HIGH RISK: >240 >200 Not Available [facility] (Lab) [address] [place], [address], 08/14/2022 12:59:23 08/15/19 23 08/14/2022 LIPID PANEL triglyceride s 177 mg/dL 0-150 high NIH SHANIQUE NSUS REPOR T RECOM MENDA TION FOR TRIGL YCERI ABDI: ADULT CHILD LOW RISK: <150 ----- BODER LINE: 150-1 99 ----- HIGH RISK: >200 ----- Not Available [facility] (Lab) [address] [place], [address], 08/14/2022 12:59:23 08/15/1908/14/2022 LIPID PANEL HDL cholesterol 32 mg/dL 40- low Not Available [facility] (Lab) [address] [place], [address], 08/14/2022 12:59:23 08/15/19 23 08/14/2022 LIPID PANEL LDL cholesterol, calculated 117 mg/dL 0-130 NIH SHANIQUE NSUS REPOR T RECOM MENDA TIONS FOR LDL: ADULT CHILD LOW RISK <130 <110 (OPTI MAL LDL) <100 ----- BORDE RLINE : 130-1 59 ----- HIGH RISK: >160 >130 A TRIGL YCERI DE RESUL T >400 INVAL IDATE S THE CALCU LATIO N FOR LDL FRACT IONAT ION - THE LDL RESUL T WILL NOT BE REPOR TEODORA. Not Available [facility] (Lab) [address] [place], [address], 08/14/2022 12:59:23 08/14/19 23 03/27/2022 XR, knee, 3 view No observ ation record ed. [email or web address] [facility] [address] [place], [address], 08/18/2022 16:32:13 05/22/19 24 05/22/2023 CT, brain , w/o contr ast No observ ation record ed. [address], [address], 05/26/2023 14:32:23 05/22/19 24 05/22/2023 XR, chest No observ ation record ed. [address], [address], 05/26/2023 14:33:48 05/22/19 24 05/22/2023 MRI, brain + brain stem, w/ contr ast No observ ation record ed. [address], [address], 05/26/2023 14:34:10 05/23/19 24 05/23/2023 US, echoc ardio gram No observ ation record ed. [address], [address], 05/27/2023 11:20:30 05/25/19 24 05/24/2023 US, duple x, abdom en No observ ation record ed. [address], [place], [address], 05/27/2023 11:22:23 11/10/19 24 11/10/2023 XR, ankle , 3 or more view [facility] [address] [place] [address] [phone] Patien t Name: ROSELIA BARRETO Access ion #: [id number] Sex: M : 1945 8 Dictat ed By: Teagan Flynn Attend ing Physic betina: KAROLINE DAVID [facility] Physic betina: KAROLINE DAVID Exam Date: 2023 14:32 PM Exam Name: XR ANKLE RT 3V+ Admitt ing Diagno sis(es ): CLINIC AL INDICA TION: ankle pain- right TECHNI QUE: 3 radiog raphic views of the right ankle were obtain ed. Compar jose: None FINDIN GS/IMP RESSIO N: There is no eviden ce of acute fractu re or disloc ation. Chroni c medial malleo scar fractu re. Small bilingual loan processor ior calcan eal enthes ophyte . The visual ized joint space is well mainta ined. The alignm ent is anatom ical. There is no radiop aque foreig n body. Electr onical ly Signed by: Teagan Flynn at 2023 15:35: 21 PM Page 1 [email or web address] [facility] (Imaging) [address] [place], [address], 12/17/2023 15:22:54 01/15/20 24 01/15/2024 XR, knee, 3 view [facility] [address] [facility] [place] [address] [phone] Patien t Name: ROSELIA BARRETO Access ion #: [id number] Sex: M : 1945 1 Dictat ed By: Jak Beth ms Attend ing Physic betina: KAROLINE DAVID Physic betina: KAROLINE DAVID Exam Date: 2023 12:57 PM Exam Name: XR KNEE RT 3V Admitt ing Diagno sis(es ): PROCED URE: Right knee radiog raphs. INDICA TION: 78 years old, Male; Pain. TECHNI QUE: 3 views of the right knee were obtain ed. COMPAR JOSE: XR KNEE LT 3V on DOS: FINDIN GS: There is no eviden ce of fractu re or disloc ation. Joint spaces are mainta ined. The soft tissue s are unrema rkable . IMPRES BARBARA: 1. No fractu re or disloc ation. Electr onical ly Signed by: Jak Beth ms at 2023 13:23: 16 PM Page 1 [email or web address] [facility] (Im[facility]) [address] [place], [address], 01/20/2024 12:49:44 01/15/20 24 01/15/2024 XR, femur [facility] [address] [place] [address] Patien t Name: ROSELIA BARRETO [facility] ion #: [id number] Sex: M : 1945 1 Dictat ed By: Jak Beth ms Attend ing Physic betina: KAROLINE DAVID Physic betina: KAROLINE DAVID Exam Date: 2023 12:59 PM Exam Name: XR FEMUR/ THIGH RT 2V Admitt ing Diagno sis(es ): PROCED URE: Right femur radiog raphs. INDICA TION: 78 years old, Male; Pain. TECHNI QUE: 4 views of the right femur were obtain ed. COMPAR JOSE: None FINDIN GS: There is no eviden ce of fractu re or disloc ation. Joint spaces are mainta ined. The soft tissue s are unrema rkable . IMPRES BARBARA: 1. No fractu re or disloc ation. Electr onical ly Signed by: Jak Beth ms at 2023 13:26: 30 PM Page 1 [email or web address] [facility] ([facility]) [address] [place], [address], 01/20/2024 12:49:44 Result Notes None recorded. Problems Name Problem SNOMED Code Status Onset Date Resolution Date Notes Provider Name and Address Organization Details Recorded Time Pain in left lower limb 595851352 Active 2022 Not Available [employer] 3 17:04:32 Blood glucose outside reference range 863178506 Active Not Available [employer] 3 17:04:31 Muscle weakness 05624799 Active 2021 Not Available [employer] 3 17:04:31 Low back pain 950618698 Active 2021 Not Available [employer] 3 17:04:31 Unable to cut own toenails 631802569 Active 2022 Not Available [employer] 3 17:04:31 Pain in toe 744807033 Active 2022 Not Available [employer] 3 17:04:32 Prostate specific antigen above reference range 500398857 Active Not Available [employer] 3 17:04:32 History of malignant neoplasm of colon 844187111 Active 2017 Not Available [employer] 3 17:04:32 Pain of left knee joint 9547174122561 07 Active 2021 Not Available [employer] 3 17:04:32 Hyperlipid emia 52777010 Active 2018 Not Available [employer] 3 17:04:32 Essential hypertensi on 06890257 Active 2019 Not Available [employer] 3 17:04:32 Dystrophia unguium 42843634 Active 2022 Not Available [employer] 3 17:04:32 Problem Notes None recorded. Procedures Surgical History Date Name Laterality Status Provider Name and Address Organization Details Recorded Time 02/17/20 19 biopsy of prostate completed Not Available [facility] 06/04/2022 03:17:45 08/21/19 18 Colonoscopy completed Not Available [facility] 06/05/19 03:17:45 01/22/20 17 Unlisted px meckel's [email or web address] completed Not Available [facility] 06/04/2022 03:17:45 11/13/19 17 Colonoscopy completed Not Available [facility] 06/05/19 03:17:45 Imaging Results Imaging Date Name Status LastModified by Organization Details LastModified Time 03/27/2022 XR, knee, 3 view completed [facility] [address] [place], [address], 08/18/2022 16:32:13 05/22/2023 CT, brain, w/o contrast completed [address], [address], 05/26/2023 14:32:23 05/22/2023 XR, chest completed [address], [address], 05/26/2023 14:33:48 05/22/2023 MRI, brain + brain stem, w/ contrast completed [address], [address], 05/26/2023 14:34:10 05/23/2023 US, echocardiogram completed [address], [address], 05/27/2023 11:20:30 05/24/2023 US, duplex, abdomen completed [address], [address], 05/27/2023 11:22:23 11/10/2023 XR, ankle, 3 or more view completed [email or web address] [facility] (Imaging) [address] [place], [address], 12/17/2023 15:22:54 01/15/2024 XR, knee, 3 view completed [email or web address] [facility] ([facility]) [address] [place], [address], 01/20/2024 12:49:44 01/15/2024 XR, femur completed [email or web address] [facility] ([facility]) [address] [place], [address], 01/20/2024 12:49:44 Procedure Notes None recorded. Medical Equipment None Reported. Allergies No known drug allergies Medications Name Sig Start Date Stop Date Status Note LastModified by Organization Details LastModified Time amoxicillin 500 mg capsule Take 1 capsule 3 times a day by oral route. active Not Available Not Available No t Available metformin 500 mg tablet Take 1 tablet twice a day by oral route. active Not Available Not Available No t Available Vitamin C 500 mg tablet TK 1 T PO QD active Not Available Not Available No t Available atorvastati n 10 mg tablet TK 1 T PO QD active Not Available Not Available No t Available ondansetron HCl 8 mg tablet TK 1 T PO AT 11 AM WHEN BEGAN MIRALAX PREP. TK REMAINING TS Q 6 H PRN N 08/17 completed Not Available Not Available Not Available prednisone 20 mg tablet Take 2 tablets every day by oral route for 5 days. active Not Available Not Available No t Available dexamethaso ne 6 mg tablet TK 1 T PO D active Not Available Not Available No t Available Zithromax Z-Eugene 250 mg tablet TAKE 2 TABLETS (500 MG) BY ORAL ROUTE ONCE DAILY FOR 1 DAY THEN 1 TABLET (250 MG) BY ORAL ROUTE ONCE DAILY FOR 4 DAYS active Not Available Not Available No t Available metronidazo le 500 mg tablet 08/17 completed Not Available Not Available Not Available peg-electro lyte solution 420 gram oral solution 03/17 completed Not Available Not Available Not Available acetaminoph en 500 mg tablet Take 1 tablet by oral route as needed. 04/26 completed Not Available Not Available Not Available triamcinolo ne acetonide 0.1 % topical cream 03/17 completed Not Available Not Available Not Available amoxicillin 500 mg tablet Take 1 tablet 3 times a day by oral route for 7 days. active Not Available Not Available No t Available meclizine 25 mg tablet 10/16 completed Not Available Not Available Not Available benzonatate 100 mg capsule 08/17 completed Not Available Not Available Not Available lisinopril 10 mg tablet TAKE 1 TABLET BY MOUTH DAILY 02/07 completed Not Available Not Available Not Available prednisone 50 mg tablet 03/23 completed Not Available Not Available Not Available magnesium citrate oral solution UTD 03/17 completed Not Available Not Available Not Available lisinopril 10 mg-hydrochl orothiazide 12.5 mg tablet TAKE 1 TABLET EVERY DAY active Not Available Not Available No t Available ibuprofen 600 mg tablet 08/17 completed Not Available Not Available Not Available levofloxaci n 750 mg tablet 03/24 completed Not Available Not Available Not Available methylpredn isolone 4 mg tablets in a dose pack 08/17 completed Not Available Not Available Not Available neomycin 500 mg tablet 08/17 completed Not Available Not Available Not Available albuterol sulfate HFA 90 mcg/actuati on aerosol inhaler active Not Available Not Available Not Available cefdinir 300 mg capsule 03/23 completed Not Available Not Available Not Available fluticasone propionate 50 mcg/actuati on nasal spray,suspe nsion 08/17 completed Not Available Not Available Not Available amoxicillin 875 mg-potassiu m clavulanate 125 mg tablet 10/20 completed Not Available Not Available Not Available oxycodone 5 mg tablet 08/17 completed Not Available Not Available Not Available enoxaparin 40 mg/0.4 mL subcutaneou s syringe 08/17 completed Not Available Not Available Not Available mometasone 0.1 % topical solution Apply 2 DROPS 2X DAILY NEEDED FOR ITCHY EARS active Not Available Not Available No t Available zinc sulfate 50 mg zinc (220 mg) capsule TK ONE C PO QAM active Not Available Not Available No t Available cholecalcif carlyn (vitamin D3) 25 mcg (1,000 unit) tablet TK 1 T PO QD active Not Available Not Available No t Available hydrochloro thiazide 12.5 mg tablet TAKE 1 TABLET BY MOUTH DAILY 02/07 completed Not Available Not Available Not Available Banophen 50 mg capsule TK ONE C PO 1 HOUR BEFORE PROCEDURE AT 1 PM 03/23 completed Not Available Not Available Not Available Fluad 2016- 65yr up(PF)45 mcg(15 mcgx3)/0.5 mL intramuscul ar syringe ADM 0.5ML IM UTD 08/17 completed Not Available Not Available Not Available Vitals Date Recorded Body mass index (BMI) Body height Body weight Provider Name and Address Organization Details Last Updated DateTime 04/09/2022 33.8 kg/m2 166.37 cm 56741.03 g Not Available [facility] 06/04/2022 03:22:35 Date Recorded Body mass index (BMI) Body height Body weight Provider Name and Address Organization Details Last Updated DateTime 05/07/2022 33.1 kg/m2 166.37 cm 26715.66 g Not Available [facility] 06/04/2022 03:22:35 Date Recorded Body mass index (BMI) Body height Oxygen saturation Oxygen saturation in Arterial blood by Pulse oximetry Heart rate Respiratory rate Body weight Systolic blood pressure Diastolic blood pressure Provider Name and Address Organization Details Last Updated DateTime 3 33.2 kg/m2 167.64 cm 96 % 96 % 64 /min 16 /min 02695.0 3 g 105 mm[Hg] 68 mm[Hg] Not Available [facility] 3 03:22:31 Date Recorded Body height Body weight Body temperature Heart rate Oxygen saturation Oxygen saturation in Arterial blood by Pulse oximetry Systolic blood pressure Diastolic blood pressure Provider Name and Address Organization Details Last Updated DateTime 3 167.64 cm 05496.8 1 g 97.6 [degF] 65 /min 96 % 96 % 122 mm[Hg] 52 mm[Hg] Melissa Oconnor RN [facility] [employer] 3 10:19:54 Date Recorded Body height Body mass index (BMI) Body weight Body temperature Heart rate Systolic blood pressure Diastolic blood pressure Provider Name and Address Organization Details Last Updated DateTime 3 167.64 cm 32.9 kg/m2 05962.8 4 g 97.4 [degF] 72 /min 122 mm[Hg] 84 mm[Hg] THA Chen [facility] [employer] 3 10:15:45 Social History Question Answer Notes LastModified by Organization Details LastModified Time Tobacco Smoking Status Former Smoker quit 2008 Not Available [employer] 06/04/2022 03:13:38 Do You Have An Advance Directive? Yes MIGRATION.030 [id number] Information not available 06/04/2022 What Is Your Level Of Alcohol Consumption? None MIGRATION.030 [id number] Information not available 06/04/2022 Do You Wear A Helmet When Biking? No MIGRATION.030 [id number] Information not available 06/04/2022 Are You Blind Or Do You Have Difficulty Seeing? No MIGRATION.030 851001 Information not available 06/04/2022 What Is Your Level Of Caffeine Consumption? Moderate MIGRATION.030 [id number] Information not available 06/04/2022 How Much Tobacco Do You Chew? None MIGRATION.030 [id number] Information not available 06/04/2022 In The 14 Days Before Symptom Onset, Have You Had Close Contact With A Laboratory-conf irmed COVID-19 While That Case Was Ill? No MIGRATION.030 [id number] Information not available 06/04/2022 In The 14 Days Before Symptom Onset, Have You Had Close Contact With A Person Who Is Under Investigation For COVID-19 While That Person Was Ill? No MIGRATION.030 [id number] Information not available 06/04/2022 Are You Currently Employed? No Information not available 08/14/2022 Are You Deaf Or Do You Have Serious Difficulty Hearing? Yes Bilateral Hearing Aids MIGRATION.030 [id number] Information not available 06/04/2022 What Type Of Diet Are You Following? REGULAR MIGRATION.030 [id number] Information not available 06/04/2022 Which Illicit Or Recreational Drugs Have You Used? None MIGRATION.030 [id number] Information not available 06/04/2022 Do You Or Have You Ever Used E-cigarettes Or Vape? Never Used Electronic Cigarettes MIGRATION.030 [id number] Information not available 06/04/2022 What Is The Highest Grade Or Level Of School You Have Completed Or The Highest Degree You Have Received? [id number] MIGRATION.030 [id number] Information not available 06/04/2022 What Is Your Occupation? Retired MIGRATION.030 [id number] Information not available 06/04/2022 Have There Been Any Changes To Your Family Or Social Situation? No MIGRATION.030 813396 Information not available 06/04/2022 When Did You Quit Smoking? 11-15yearssincelas tcigarette MIGRATION.0301 [id number] Information not available 06/04/2022 Are There Any Guns Present In Your Home? No MIGRATION.0301 [id number] Information not available 06/04/2022 Do You Use Insect Repellent Routinely? No MIGRATION.0301 [id number] Information not available 06/04/2022 Where Do You Live? SingleLevelHouse MIGRATION.0301 [id number] Information not available 06/04/2022 Do You Have A Medical Power Of Research Group Director? Yes MIGRATION.0301 [id number] Information not available 06/04/2022 What Was The Date Of Your Most Recent Tobacco Screening? 02/05/2023 [email or web address] Information not available 02/05/2023 What Is Your Current Pack Years? 30ormorepackyears MIGRATION.0301 [id number] Information not available 06/04/2022 Do You Have Any Pets? No MIGRATION.0301 [id number] Information not available 06/04/2022 What Is Your Relationship Status? MIGRATION.0301 [id number] Information not available 06/04/2022 Do You Use Your Seat Belt Or Car Seat Routinely? Yes MIGRATION.0301 [id number] Information not available 06/04/2022 Do You Have Smoke And Carbon Monoxide Detectors In Your Home? Yes MIGRATION.0301 [id number] Information not available 06/04/2022 At What Age Did You Start Smoking Tobacco? 16 MIGRATION.0301 [id number] Information not available 06/04/2022 Are You Passively Exposed To Smoke? No MIGRATION.0301 [id number] Information not available 06/04/2022 Do You Or Have You Ever Used Smokeless Tobacco? Never Used Smokeless Tobacco MIGRATION.0301 [id number] Information not available 06/04/2022 Are There Any Smokers In Your House? No MIGRATION.0301 [id number] Information not available 06/04/2022 How Much Tobacco Do You Smoke? No MIGRATION.0301 [id number] Information not available 06/04/2022 What Types Of Sporting Activities Do You Participate In? None MIGRATION.0301 [id number] Information not available 06/04/2022 Do You Feel Stressed (tense, Restless, Nervous, Or Anxious, Or Unable To Sleep At Night)? [id number] MIGRATION.0301 [id number] Information not available 06/04/2022 Do You Use Any Illicit Or Recreational Drugs? No MIGRATION.0301 [id number] Information not available 06/04/2022 Do You Use Sunscreen Routinely? Yes MIGRATION.0301 [id number] Information not available 06/04/2022 Has Tobacco Cessation Counseling Been Provided? No MIGRATION.0301 [id number] Information not available 06/04/2022 Have You Recently Traveled Abroad? No MIGRATION.0301 [id number] Information not available 06/04/2022 Do You Have Any Dietary Restrictions? No MIGRATION.0301 262100 Information not available 06/04/2022 Do You Or Have You Ever Used Any Other Forms Of Tobacco Or Nicotine? No MIGRATION.0301 [id number] Information not available 06/04/2022 Sex: Male Functional Status Question Answer Note LastModified by Organizat ion Details LastModified Time Do you have difficulty walking or climbing stairs? Yes since COVID leg pain [id number] Information not available 06/04/2022 Do you have transportation difficulties? No [id number] Information not available 06/04/2022 Are you able to walk? YESWOREST [id number] Information not available 06/04/2022 Do you have difficulty doing errands alone? No [id number] Information not available 06/04/2022 Are you able to care for yourself? Yes [id number] Information not available 06/04/2022 Do you have difficulty dressing or bathing? No [id number] Information not available 06/04/2022 What is your exercise level? Moderate [id number] Information not available 06/04/2022 Mental Status Question Answer Note LastModified by Organizat ion Details LastModified Time Do you have difficulty concentrating, remembering or making decisions? No [id number] Information not available 06/04/2022 Family History Relationship Description Onset Age of this Age Resolved Age Notes LastModified by Organization Details LastModified Time Father Diabetes mellitus [id number] Not available 06/04/2022 03:17:51 Father Myocardial infarction 68 [id number] Not available 06/04/2022 03:17:51 Brother Malignant tumor of prostate deceas ed [id number] Not available 06/04/2022 03:17:51 Medical History Condition Response NERVE DISEASE N BLINDNESS N RHEUMATIC FEVER N KIDNEY STONES N BLADDER PROBLEMS N MRSA N OTHER # 1 N POLIO N LUNG DISEASE/DISORDER N HISTORY OF DRUG ABUSE N RADIATION / CHEMOTHERAPY N COPD N Other # 2 N BLOOD DISEASES N SURGERY N EAR OR HEARING PROBLEMS Y MUMPS Y SHINGLES N DEPRESSION (INCLUDING POST ) N BOWEL PROBLEMS N STROKE/TIA N ULCERS N BENIGN PROSTATIC HYPERPLASIA N MEASLES Y HYPOTENSION N MYOCARDIAL INFARCTION N OBESITY N GERD/NAUSEA N ANEURYSM N URINARY/BLADDER/KIDNEY PROBLEMS N CORONARY ARTERY DISEASE (CAD) N ADDICTION CONCERNS N Impotence N ENDOMETRIOSIS N USE OF BLOOD THINNERS N SKIN PROBLEMS N GASTROINTESTINAL DISORDER N PERIPHERAL VASCULAR DISEASE N MUSCLE,JOINT OR BONE PROBLEMS N GASTROINTESTINAL BLEEDING N BLOOD CLOTS N ASTHMA N CATARACTS N ERECTILE DYSFUNCTION N VARICOSITIES N GI PROBLEMS N Low Testosterone N INFERTILITY N AIDS/HIV N CHEMOTHERAPY / RADIATION N LIVER DISEASE N MALE HYPOGONADISM N HYPERTENSION Y Deficiency N TOURETTE'S N ANXIETY DISORDER N BLOOD TRANSFUSION N ANEMIA/BLOOD DISORDER N CHRONIC EAR INFECTIONS N BRONCHITIS N TUBERCULOSIS N GLAUCOMA N FOOT PROBLEM N DIVERTICULITIS N SLEEP APNEA N CHICKENPOX Y INFECTIOUS DISEASE N PROSTATE N HEART ARRHYTHMIA N INSOMNIA N HIGH CHOLESTEROL / HYPERLIPIDEMIA Y EYE PROBLEMS N HYPERTHYROIDISM N NEUROLOGICAL PROBLEMS N EDEMA N CHRONIC PAIN SYNDROME N HYPOTHYROIDISM N CAROTID BLOCKAGE N CONSTIPATION N BACK / NECK PROBLEMS N HAVE YOU BEEN HOSPITALIZED OR SEEN IN [facility] IN THE PAST YEAR ? N ATHEROSCLEROSIS N BREAST PROBLEMS N DIALYSIS N ECZEMA N OSTEOPOROSIS N ARTHRITIS N APPENDICITIS N DIABETES, TYPE N BAD TEETH N ENT N HEARTBURN / REFLUX N AUTISM SPECTRUM DISORDER (ASD) N HEPATITIS / LIVER DISEASE N GOUT N SLEEP DISORDER N ALZHEIMER'S DISEASE N Brain Problems N DEMENTIA N HERPES N SEIZURES/EPILEPSY N HEADACHES/MIGRAINES N VASCULAR DISEASE N PACEMAKER N Blood Disorder N DIZZINESS N HEART DISEASE/HEART PROBLEMS N KIDNEY DISEASE N MULTIPLE SCLEROSIS N CANCER: SPECIFY Y CARDIAC ARRHYTHMIA N ATRIAL FIBRILLATION N Gall Stones N PULMONARY EMBOLISM N AUTOIMMUNE DISEASE N Immunizations Vaccine Type Date Status Note Provider Nam e and Address Organization Details Recorded Time COVID-19, mRNA, LNP-S, PF, 30 mcg/0.3 mL dose 1 completed Not Available [facility] 09/10/2022 17:04:32 Influenza, high-dose, trivalent, PF 0 completed Not Available [facility] 09/10/2022 17:04:32 Influenza, high-dose, trivalent, PF 9 completed Not Available [facility] 09/10/2022 17:04:32 Influenza, high-dose, trivalent, PF 8 completed Not Available [facility] 09/10/2022 17:04:32 Influenza, high-dose, trivalent, PF 7 completed Not Available [facility] 09/10/2022 17:04:32 influenza, unspecified formulation 6 completed Not Available [facility] 09/10/2022 17:04:32 COVID-19, mRNA, LNP-S, PF, 30 mcg/0.3 mL dose 1 completed Not Available [facility] 09/10/2022 17:04:32 COVID-19, mRNA, LNP-S, PF, 30 mcg/0.3 mL dose 1 completed Not Available [facility] 09/10/2022 17:04:32 Past Encounters Encounter ID Performer Location Encounter Start Date Encounter Closed Date Diagnosis/Indication Diagnosis SNOMED-CT Code Diagnosis ICD10 Code Diagnosis Note [id number] [facility] [place] [facility] [address]ame[address] y , [place] [address] 07/12/2020 00:00:00 07/21/2020 20:41:55 [id number] [facility] Internal [facility] [place] [facility] [address] y , [place] [address] 08/09/2020 00:00:00 08/26/2020 22:07:51 [id number] [facility] [place] llmounika [address] [place] [address] y , [place] [address] 10/16/2020 00:00:00 10/16/2020 22:30:08 [id number] [facility] ENT Hina Garcia [address] [place] [address] 11/28/2020 00:00:00 11/28/2020 16:55:30 [id number] [facility] [place] [facility] Virgilio y , [place] [address] 01/22/2021 00:00:00 01/25/2021 13:54:54 [id number] [facility] [place] [address] [place] [address] [place] [address] 07/18/2021 00:00:00 07/19/2021 12:56:16 [id number] [facility] [address] [place] [address] y , [place] [address] 08/22/2021 00:00:00 09/14/2021 16:25:17 [id number] [facility] Angel hilary [address] [place] [address] y , [place] [address] 02/13/2022 00:00:00 02/13/2022 21:53:32 [id number] [facility] Internal Med [address], [facility] [address] [place] [address] 03/27/2022 00:00:00 03/27/2022 22:46:47 [id number] [facility] [place] [address] [place] [address] 04/09/2022 00:00:00 04/09/2022 11:53:41 [id number] [facility] [place] [address] [place] [address] 05/07/2022 00:00:00 05/07/2022 10:36:02 [id number] [facility] [place] [address] [place] [address] 05/12/2022 00:00:00 05/12/2022 17:06:07 [id number] Pedro David MD [facility] [address] [place] [address] [place] [address] 08/14/2022 10:09:37 08/14/2022 11:00:49 Essential hypertension 74521384 I10 Hyperlipidemia 47396633 E78.5 Prostate s pecific antigen above reference range [id number] R97.20 [id number] Pedro David MD [facility] [place] [address] [facility] [place] [address] 02/05/2023 10:09:54 02/05/2023 10:54:46 Essential hypertension 18009490 I10 Hyperlipidemia 35649735 E78.5 Health Concerns Section Related Observation LastModified by Organization Detai ls LastModified Time None Recorded Concern Status LastModified by Organization Details LastModified Time None Recorded Advance Directives Directive Y: Payers Encounter Date Sequence Insurance Name Policy Number Policy Goldsmith Covered Member ID Goldsmith Member ID Guarantor Name 08/14/2022 1 [place] Roselia E Barreto [id number] Roselia E Barreto 08/14/2022 2 [employer] (MEDICARE SUPPLEMENT) Roselia E Barreto [id number] Roselia E Barreto 02/05/2023 1 [place] Roselia E Barreto [id number] Roselia E Barreto 02/05/2023 2 [employer] (MEDICARE SUPPLEMENT) Roselia E Barreto [id number] Roselia E Barreto Notes Date Note Type Note Provider Name and Address Organization Details Recorded Time 3 text/html hypertension no headache no dizzinesshyperlipidemia trying to follow a low-fat dietelevated PSA just saw the urologist yesterday they are continuing to monitor he has no symptomsleg weakness has improved Pedro David MD [address], [place], [address], [facility] [employer] 08/14/2022 11:10:23 3 text/html hypertension no headache no dizzinesshyperlipidemia trying to follow a low-fat dietelevated PSA just saw the urologist yesterday they are continuing to monitor he has no symptomsleg weakness has improved Pedro David MD [address], [place], [address], [facility] [employer] 02/14/2023 15:46:16
--- NOTE | 2024-07-26 12:00 | NEURO_ITS ---
Impression: # Complains of increasing gait dysfunction. Non-diabetic. ? # Asymmetrical axonal neuropathy. ? # Needle/EMG exam reveals neurogenic changes. ? # Clinical correlation recommended. Nerve Conduction Studies Anti Sensory Summary Table ?Stim Site NR Peak (ms) P-T Amp (?V) Site1 Site2 Delta-P (ms) Dist (cm) Austin (m/s) Left Sup Fibular Anti Sensory (Ant Lat Mall) 14 cm ? 4.0 15.9 14 cm Ant Lat Mall 4.0 16.0 40 Right Sup Fibular Anti Sensory (Ant Lat Mall) 14 cm ? 3.6 20.4 14 cm Ant Lat Mall 3.6 16.0 44 Left Sural Anti Sensory (Lat Mall) Calf ? 3.6 9.0 Calf Lat Mall 3.6 16.0 44 Right Sural Anti Sensory (Lat Mall) Calf ? 4.0 18.8 Calf Lat Mall 4.0 16.0 40 Motor Summary Table ?Stim Site NR Onset (ms) O-P Amp (mV) Site1 Site2 Delta-0 (ms) Dist (cm) Austin (m/s) Left Peroneal Motor ([employer]) Ankle ? 3.8 0.4 Popit Ankle 8.9 40.0 45 Popit ? 12.7 2.0 Right Peroneal Motor ([employer]) Ankle ? 3.8 2.0 Popit Ankle 9.2 39.0 42 Popit ? 13.0 2.0 Left Tibial Motor (Abd Mcintyre Brev) Ankle ? 4.4 7.0 Knee Ankle 9.6 41.0 43 Knee ? 14.0 6.1 Right Tibial Motor (Abd Mcintyre Brev) Ankle ? 4.4 7.6 Knee Ankle 9.4 40.0 43 Knee ? 13.8 5.9 F Wave Studies ?NR F-Lat (ms) L-R F-Lat (ms) Left Peroneal (Mrkrs) (EDB) ? 52.97 0.46 Right Peroneal (Mrkrs) (EDB) ? 53.42 0.46 Left Tibial (Mrkrs) (Abd Hallucis) ? 53.60 0.86 Right Tibial (Mrkrs) (Abd Hallucis) ? 54.46 0.86 EMG ?Side Muscle Nerve Root Ins Act Fibs Amp Dur Recrt Comment Right AntTibialis Dp Br Fibular L4-5 Nml Nml Nml Nml Nml Right Gastroc Tibial S1-2 Nml Nml Nml Nml Nml Right Fibularis Long Sup Br Fibular L5-S1 Nml Nml Decr >12ms Nml Right Flex Dig Long Tibial L5-S2 Nml Nml Decr >12ms Nml Right Ext Dig Brev Dp Br Fibular L5, S1 Nml Nml Decr >12ms Nml Right QuadratusFem QuadFemoris L4-5, S1 Nml Nml Nml Nml Nml Left AntTibialis Dp Br Fibular L4-5 Nml Nml Nml Nml Nml Left Gastroc Tibial S1-2 Nml Nml Nml Nml Nml Left Fibularis Long Sup Br Fibular L5-S1 Nml Nml Decr >12ms Nml Left Flex Dig Long Tibial L5-S2 Nml Nml Decr >12ms Nml Left Ext Dig Brev Dp Br Fibular L5, S1 Nml Nml Decr >12ms Nml Left QuadratusFem QuadFemoris L4-5, S1 Nml Nml Nml Nml Nml MTDD
== END 2024-07-26 09:21 | disposition home or self-care (01) ==
PROVIDERS: PCP Internal Medicine; Visit Provider Internal Medicine
DX: R20.2 Paresthesia of skin (principal)
CPT/HCPCS: 95886; 95910